=== PATIENT | female | born 1925 | race Caucasian/White ===

== ENCOUNTER 2016-11-07 10:55 | Inpatient (IN) | payer MEDICARE, BC ==
[~2016-11-07] VITALS: Ht 170.2 cm; Wt 95.8 kg
[~2016-11-07 10:55] MED LIST: ALBU2.5V5 NEB; ASPI325T8 PO; DIGO125T PO; DOXA8TAB2 PO; FERR325T72 PO; FOLI0.8T3 PO; HYDR-2868 PO; INSU100I13 SQ; INSU100I17 SQ; ISOS120T PO; LOSA50TA6 PO; MAGN400O7 PO; METO100T5 PO; NITR0.4T SL; OMEG1CAP6 PO; ONDA4TAB7 PO; PANT40TA3 PO; SIMV20TA3 PO; VENL75CA PO
--- NOTE | 2016-11-07 12:04 | RAD ---
Portable chest, 11/07/2016: History: Left-sided weakness, heart disease, stroke Comparison is made to a study from 01/13/2016. There has been a previous median sternotomy. The heart is mildly enlarged. There is calcific plaquing of the aorta. The pulmonary vascularity is normal. The left lung base has cleared. No acute infiltrates are seen. There is no evidence of pleural fluid. The bony structures are demineralized. There is an old left humeral neck fracture. IMPRESSION: 1. Mild cardiomegaly. 2. No acute cardiopulmonary abnormality is detected.
--- NOTE | 2016-11-07 12:27 | RAD ---
Indication weakness. Change in mental status. Noncontrast images of the head were obtained. Comparison is made to an exam 01/11/2016. No acute or significant calvarial finding is seen. The visualized paranasal sinuses appear unremarkable. There is no subdural or epidural hematoma. There is moderate atrophy. There is increased lucency in the deep white matter most compatible with microvascular disease. A mass or hemorrhage is not seen. No acute finding is apparent. There has not been a significant change relative to the previous exam. IMPRESSION: Chronic changes. No acute finding seen PQRS Compliance Statement: One or more of the following individualized dose reduction techniques were utilized for this examination: 1. Automated exposure control 2. Adjustment of the mA and/or kV according to patient size 3. Use of iterative reconstruction technique
[2016-11-07 12:44] LABS: HEMATOCRIT 24.1 % (36.0-47.0); HEMOGLOBIN 7.9 g/dL (12.0-15.5); RED BLOOD COUNT 2.67 x10^6/uL (3.50-5.40); RED CELL DISTRIBUTION WIDTH 17.9 % (11.5-14.5); WHITE BLOOD COUNT 5.9 x10^3/uL (4.0-11.0)
[2016-11-07 12:55] LABS: INR 1.3 (0.8-1.1); PROTHROMBIN TIME PATIENT 15.1 SEC (11.7-14.0)
[2016-11-07 13:22] LABS: CALCIUM 8.9 mg/dL (8.5-10.1); GFR 14.7; POTASSIUM 3.9 mmol/L (3.5-5.1)
--- NOTE | 2016-11-07 14:51 | PHYS DOC ---
Past Medical History Past Medical History: A-Fib, Asthma, CHF, COPD, Depression, Diabetes-Type II, GERD, High Cholesterol, Heart Disease, Hypertension, DC, Renal Disease, Renal Failure, Stroke, UTI Past Surgical History: Cholecystectomy, Coronary Bypass Surgery, Hysterectomy, Tonsillectomy Alcohol Use: None Drug Use: None Adult General Chief Complaint Chief Complaint: NEURO SYMPTOMS/DEFICITS [facility] HPI Patient is a 89 year old female with history of hypertension, diabetes type 2, myocardial infarction, high cholesterol, COPD, renal failure, who presents today with generalized weakness. The daughter is in the ED who is doing most of the talking, she states the assisted reported patient has been weak since Saturday which is 5 days ago. They state she has been having trouble feeding herself. The daughter goes father to state this morning they called her and informed her patient passed out during a transfer via [employer]. Patient is alert and oriented to self. PCP is Dr. Terry Review of Systems Review of Systems Constitutional: Denies fever or chills [] Eyes: Denies change in visual acuity, redness, or eye pain [] HENT: Denies nasal congestion or sore throat [] Respiratory: Denies cough or shortness of breath [] Cardiovascular: No additional information not addressed in HPI [] GI: Denies abdominal pain, nausea, vomiting, bloody stools or diarrhea [] : Denies dysuria or hematuria [] Musculoskeletal: Denies back pain or joint pain [] Integument: Denies rash or skin lesions [] Neurologic: Generalized weakness Endocrine: Denies polyuria or polydipsia [] Allergies Allergies Allergies Coded Allergies Type Severity Reaction Last Updated Verified Penicillins Allergy Intermediate Hives 01/12/16 Yes iodine Allergy Intermediate Hives 01/12/16 Yes Physical Exam Physical Exam Constitutional: Well developed, well nourished, no acute distress, non-toxic appearance. [] HENT: Normocephalic, atraumatic, bilateral external ears normal, oropharynx moist, no oral exudates, nose normal. [] Eyes: PERRLA, EOMI, conjunctiva normal, no discharge. [] Neck: Normal range of motion, no tenderness, supple, no stridor. [] Cardiovascular:Heart rate regular rhythm, no murmur [] Lungs & Thorax: Bilateral breath sounds clear to auscultation [] Abdomen: Bowel sounds normal, soft, no tenderness, no masses, no pulsatile masses. [] Skin: Left heel with dressing due to foot ulcer. Back: No tenderness, no CVA tenderness. [] Extremities: Left upper extremity feels weaker than the right. Full passive range of motion to bilateral upper extremities. Full passive range of motion to bilateral lower extremities. +1 bilateral pedal edema. Neurologic: Alert and oriented X 2, Psychologic: Affect normal, judgement normal, mood normal. [] Current Patient Data Vital Signs Vital Signs Date Time Temp Pulse Resp B/P (MAP) Pulse Ox O2 Delivery O2 Flow Rate FiO2 11/07/16 14:00 75 15 133/73 (93) 94 11/07/16 11:30 Room Air 11/07/16 11:02 98.1 98.1 Lab Values Laboratory Tests Test 11/07/16 11:12 11/07/16 12:30 11/07/16 13:00 11/07/16 13:18 Glucose (Fingerstick) 59 mg/dL (70-99) L 58 mg/dL (70-99) L White Blood Count 5.9 x10^3/uL (4.0-11.0) Red Blood Count 2.67 x10^6/uL (3.50-5.40) L Hemoglobin 7.9 g/dL (12.0-15.5) L Hematocrit 24.1 % (36.0-47.0) L Mean Corpuscular Volume 90 fL (79-100) Mean Corpuscular Hemoglobin 30 pg (25-35) Mean Corpuscular Hemoglobin Concent 33 g/dL (31-37) Red Cell Distribution Width 17.9 % (11.5-14.5) H Platelet Count 186 x10^3/uL (140-400) Prothrombin Time 15.1 SEC (11.7-14.0) H Prothrombin Time INR 1.3 (0.8-1.1) H PTT 29 SEC (24-38) Sodium Level 139 mmol/L (136-145) Potassium Level 3.9 mmol/L (3.5-5.1) Chloride Level 99 mmol/L (98-107) Carbon Dioxide Level 30 mmol/L (21-32) Anion Gap 10 (6-14) Blood Urea Nitrogen 91 mg/dL (7-20) H Creatinine 3.0 mg/dL (0.6-1.0) H Estimated GFR (Cockcroft-Gault) 14.7 Glucose Level 60 mg/dL (70-99) L Lactic Acid Level 1.1 mmol/L (0.4-2.0) Calcium Level 8.9 mg/dL (8.5-10.1) Test 11/07/16 13:44 Glucose (Fingerstick) 66 mg/dL (70-99) L Laboratory Tests 11/07/16 12:30 Laboratory Tests 11/07/16 13:00 EKG EKG []EKG interpreted by Dr. Benites sinus rhythm, heart rate 77, QRS interval 90, no STEMI. Radiology/Procedures Radiology/Procedures [] Course & Med Decision Making Course & Med Decision Making Pertinent Labs and Imaging studies reviewed. (See chart for details) Patient is from a assisted, she was brought to the ED today for generalized weakness for five days and passed out during transfer with a [employer]. Offnote her stroke scale is 7. We considered TPA patient's have been going on for 5 days we did feel it was warranted with symptoms onset five days ago. We unfortunately have no idea of patient's normal mental status hence hard to tell if her current symptoms are normal or not. EKG interpreted by Dr. Benites sinus rhythm, heart rate 77, QRS interval 90, no STEMI. CBC with hemoglobin of 7.9, hematocrit 24.1, BMP with creatinine of 3.0, BUN of 91. Patient has history of renal failure unknown what stage. CT of the head was negative for any acute findings. Chest x-ray was negative for any acute findings. 13:[address] Terry who accepted patient for admission. IV fluids were ordered as discussed with Dr. Terry. Dragon Disclaimer Dragashvin Disclaimer This electronic medical record was generated, in whole or in part, using a voice recognition dictation system. Departure Departure Impression: Primary Impression: Acute on chronic renal failure Additional Impressions: Weakness generalized Syncope Disposition: ADMITTED INPATIENT Admitting Physician: Adriana Terry Condition: STABLE Referrals: ADRIANA TERRY MD (PCP) Problem Qualifiers Primary Impression: Acute on chronic renal failure Acute renal failure type: unspecified Chronic kidney disease stage: unspecified stage Qualified Codes: N17.9 - Acute kidney failure, unspecified; N18.9 - Chronic kidney disease, unspecified Additional Impressions: Syncope Syncope type: unspecified Qualified Codes: R55 - Syncope and collapse HUGO FAJARDO CALLIOPE PLAYER Nov 07, 2016 14:51
--- NOTE | 2016-11-07 14:56 | ACF ---
Admit Criteria Forms Admit Criteria Forms Admit Criteria Forms RENAL FAILURE, ACUTE Clinical Indications for Admission to Inpatient Care ( Place 'X' for any and all applicable criteria): Admission is indicated for ALL (if I & II) or III of the following [A](2)(3)(4)( 5)(6)(7): [X]I. Acute renal failure as indicated by ANY ONE of the following: [X]a) A 3-fold rise in serum creatinine from baseline [ ]b) Serum creatinine greater than 4 mg/dL (354 micromoles/L) with an acute rise greater than 0.5 mg/dL (44.2 micromoles/L) [ ]c) Reduction of more than 75% in estimated glomerular filtration rate from baseline [ ]d) Estimated glomerular filtration rate less than 35 mL/min/1.73m2 (0.59mL/sec/1.73m2)in a child up to 18 years of age [ ]e) Anuria indicated by ALL of the following: [ ]i) Adequate volume status [ ]ii) Cessation of urine output indicated by ANY ONE of the following: [ ]1) Urine output less than 0.3 mL/kg/hr for 24 hours [ ]2) Anuria (urine output less than 0.1 mL/kg/ hr) for 12 hours [ ] II. Renal failure cannot be managed in an outpatient setting or observational care setting as indicating by ANY ONE of the following: [ ]a) Altered mental status that is severe or persistent [ ]b) Volume overload or Respiratory distress (eg, clinically significant pulmonary edema) that is severe or persistent [ ]c) Cardiac arrhythmias of immediate concern [ ]d) Hemodynamic instability [ ]e) Clinically significant electrolyte abnormality that requires inpatient care (eg, hyperkalemia with severe ECG findings)[B] [ ]f) Clinically significant metabolic abnormality (eg, acidosis) that is severe or persistent [ ]g) Acute treatment of renal failure (eg, renal replacement therapy) not feasible or appropriate in observational care setting [ ]h) Clinical situation too unstable or uncertain (eg, inadequate urine output, ongoing decline in renal function, etiology unclear) [ ]i) Necessary support and caregiver ability to comply with outpatient treatment cannot be arranged in observation care timeframe (eg, within 24 hours) [ ]j) Other significant finding or clinical condition judged not to be within scope of observation care [X]III.General contraindications and/or Inappropriate clinical situations for Observational Care in patients with Acute Renal Failure, when ANY ONE of the following is required: [X]a) Prediction of prolongation of LOS based on ANY ONE of the following may be considered as a contraindication for observational care 2, 3, 4, 5, 6, 7, 8 , 9, 10, 11 [X]i) Age > 65 yrs. [ ]ii) Patient arriving by ambulance [ ]iii) Patient with high acuity [ ]iv) Patient requiring vital sign monitoring [ ]v) Patient on IV medication [ ]b) Systolic blood pressures 180mmHg 3,12 [ ]c) Patient with altered mental status including delirium and other alteration of consciousness, (3) [ ]d) Patient whose discharge disposition will be to a custodial home or rehabilitation home should not be managed in Emergency Department Observation Unit. CMS rule requires 3 days hospital stay before such placement.3,13 [ ]e) Patient with failure to thrive due to broad array of etiologies 3, 16,17 [ ]f) Inability to ambulate 3,14 Extended stay beyond goal length of stay may be needed for(13) [ ]a) Continuing uremic complications [ ]b) Care for comorbidities [ ]c) acute renal failure [ ]d) Need for dialysis The original [employer] content created by [employer] has been revised. The portions of the content which have been revised are identified through the use of italic text or in bold, and [employer] [facility] has neither reviewed nor approved the modified material. All other unmodified content is copyright [employer]. Please see references footnoted in the original [employer] edition 2016 ZOIE SCOTT Nov 07, 2016 14:56
[2016-11-07] MEDS ORDERED: ONDANSETRON PF 4 MG/2 ML VIAL. IV PRN (15:15)
[2016-11-07] MEDS ORDERED: IV NORMAL SALINE 1000ML BAG 1,000 ML IV ONE ×2 (15:15)
[2016-11-07] MEDS ORDERED: DEXTROSE 50% 25 GM / 50ML DISP.SYRIN. IV PRN (15:15)
--- NOTE | 2016-11-07 15:40 | EKG ---
[facility] [address] [place] [address] Test Date: 2016-11-07 Test Time: 11:30:05 Pat Name: DELICIA GREENE Department: Room: 672 1 Gender: F Face Burler: : 1925 Requested By: HUGO FAJARDO Order Number: [id number] Reading MD: Paolo Vyas Measurements Intervals Glade Rate: 77 P: WV: QRS: -12 QRSD: 90 T: 156 QT: 428 QTc: 486 Interpretive Statements ATRIAL FIBRILLATION - CONTROLLED VENTRICULAR RATE POSSIBLE INFERIOR INFARCT Electronically Signed On 11-21-2016 6:24:26 CDT by Paolo Vyas
[2016-11-07 16:10] VITALS: BP 137/49
[2016-11-07] MEDS ORDERED: ATOR40TA59 PO (18:17)
[2016-11-07] MEDS ORDERED: INSU100V13 SQ ×2 (18:25→18:31)
[2016-11-07] MEDS ORDERED: FURO-68 PO (18:25)
[2016-11-07] MEDS ORDERED: CARV12.5 PO (18:25)
[2016-11-07] MEDS ORDERED: TAMS0.4C2 PO (18:25)
[2016-11-07] MEDS ORDERED: GABA-586 PO (18:25)
[2016-11-07] MEDS ORDERED: VENL37.57 PO (18:25)
[2016-11-07] MEDS ORDERED: DILT120C80 PO (18:25)
[2016-11-07] MEDS ORDERED: INSU100C4 SQ ×3 (18:25→18:31)
[2016-11-07] MEDS ORDERED: TRAM50TA PO (18:25)
[2016-11-07] MEDS ORDERED: POLY17PO29 PO (18:25)
[2016-11-07] MEDS ORDERED: ACET500T68 PO (18:25)
[2016-11-07] MEDS ORDERED: LEVE500T56 PO (18:25)
[2016-11-07] MEDS ORDERED: HYOS0.125 SL (18:25)
[2016-11-07 19:58] VITALS: BP 121/56
[2016-11-07] MEDS: ATORVASTATIN CALCIUM 40 MG TABLET. PO SCH (21:46)
[2016-11-07] MEDS: levETIRAcetam 500 MG TABLET PO SCH (21:46)
[2016-11-07 22:48] LABS: BILIRUBIN,URINE NEGATIVE (NEG); GLUCOSE,URINE NEGATIVE (NEG); NITRITE,URINE NEGATIVE (NEG); PH,URINE 6.5; PROTEIN,URINE 30 mg/dL (NEG-TRACE); UROBILINOGEN,URINE 0.2 mg/dL (0.2 mg/dL)
[2016-11-07 23:03] LABS: BACTERIA,URINE MANY /HPF (0-FEW); RBC,URINE OCC /HPF (0-2); SQUAMOUS EPITHELIAL CELL,UR MOD /LPF; WBC,URINE 20-40 /HPF (0-4)
[2016-11-07 23:37] VITALS: BP 137/69
[2016-11-08 03:22] VITALS: BP 114/50
[2016-11-08 04:00] LABS: BASO % 1 % (0-3); EOS % 4 % (0-3); HEMATOCRIT 21.1 % (36.0-47.0); HEMOGLOBIN 7.2 g/dL (12.0-15.5); LYMPH # 0.7 x10^3/uL (1.0-4.8); LYMPH % 14 % (24-48); MEAN CORPUSCULAR HEMOGLOBIN 30 pg (25-35); MEAN CORPUSCULAR HGB CONC 34 g/dL (31-37); MEAN CORPUSCULAR VOLUME 88 fL (79-100); MONO % 8 % (0-9); NEUT % 73 % (31-73); PLATELET COUNT 164 x10^3/uL (140-400); RED BLOOD COUNT 2.39 x10^6/uL (3.50-5.40); RED CELL DISTRIBUTION WIDTH 17.7 % (11.5-14.5); WHITE BLOOD COUNT 4.7 x10^3/uL (4.0-11.0)
[2016-11-08 04:14] LABS: CALCIUM 8.5 mg/dL (8.5-10.1); CREATININE 2.7 mg/dL (0.6-1.0); GFR 16.6; POTASSIUM 3.6 mmol/L (3.5-5.1)
[2016-11-08 07:20] VITALS: BP 122/52
[2016-11-08] MEDS: levETIRAcetam 500 MG TABLET PO SCH ×2 (09:04→20:43)
[2016-11-08 10:51] VITALS: BP 136/55
[2016-11-08] MEDS ORDERED: NITROGLYCERIN SUBLINGUAL 0.4 MG BOTTLE OF 25. SL PRN (12:00)
[2016-11-08] MEDS ORDERED: HYOSCYAMINE 0.125 MG TAB.RAPDIS PO PRN (12:00)
[2016-11-08] MEDS ORDERED: traMADol 50 MG TABLET PO PRN (12:00)
[2016-11-08] MEDS ORDERED: POLYETHYLENE GLYCOL 3350 17 GM PACKET. PO PRN (12:00)
[2016-11-08] MEDS ORDERED: MAGNESIUM HYDROXIDE 2,400 MG/30 ML ORAL.SUSP. PO PRN (12:00)
[2016-11-08] MEDS ORDERED: ALBUTEROL SULFATE 2.5 MG/3 ML NEBU. NEB PRN (12:00)
[2016-11-08] MEDS ORDERED: ACETAMINOPHEN 325 MG TABLET. PO PRN (12:15)
[2016-11-08] MEDS: PANTOPRAZOLE 40 MG TABLET.DR. PO SCH (13:03)
[2016-11-08] MEDS: IV NORMAL SALINE 1000ML BAG 1,000 ML IV SCH (13:03)
[2016-11-08] MEDS: VENLAFAXINE XR 37.5 MG CAP.ER.24H. PO SCH (13:04)
[2016-11-08] MEDS: TAMSULOSIN 0.4 MG CAP.ER.24H. PO SCH (13:04)
[2016-11-08] MEDS: GABAPENTIN 300 MG CAPSULE. PO SCH (13:04)
--- NOTE | 2016-11-08 13:27 | HP ---
ADMIT DATE: 11/07/2016 HISTORY OF PRESENT ILLNESS: The patient is an 89-year-old female patient, a resident at [facility], who apparently was brought to the Emergency Room of [facility] with generalized weakness, having trouble feeding herself and she has also what seemed to be a syncopal episode when they tried to transfer her by [employer]. The patient herself is demented and does not give any useful information; however, she was evaluated in the Emergency Room, was found to have [id number] renal failure. Her baseline creatinine was probably about 2.4. She was given IV fluids and was admitted for further evaluation and treatment. The patient herself complains only of pain in her left heel and shortness of breath on exertion, but denied any orthopnea, paroxysmal nocturnal dyspnea, denied any chest pain. PAST MEDICAL HISTORY: Significant for coronary artery disease, congestive heart failure, hypertension, hyperlipidemia, history of cerebrovascular accident, type 2 diabetes as well as recurrent urinary tract infection. PAST SURGICAL HISTORY: Significant for cholecystectomy, coronary artery bypass graft surgery, and hysterectomy. FAMILY HISTORY: Unremarkable. SOCIAL HISTORY: She is a resident at [facility]. She does not smoke, drink alcohol, or use recreational drugs. REVIEW OF SYSTEMS: The patient denied any blurring of vision, cataract, glaucoma, or macular degeneration. Denied any earache, tinnitus, or sensorineural deafness. Denied any nosebleeds, stuffy nose, or postnasal drip. Denied any sore throat, sore tongue, toothache, hoarseness of voice or difficulty swallowing. Denied any nausea, vomiting, diarrhea, or constipation. Denied any hematemesis, melena, or hematochezia. Denied any dysuria, frequency, or hematuria. Denied any chest pain. Did complain of shortness of breath on exertion, but denied any orthopnea or paroxysmal nocturnal dyspnea. Denied any cough, phlegm, or hemoptysis. Denied any dizziness, lightheadedness, or vertigo; however, she does seem to have syncopal episode when they were trying to transfer her by [employer]. MEDICATIONS: She is currently on following medications: She is on Tylenol 650 mg every 6 hours, albuterol sulfate 2.5 mg via nebulizer q. 4 hours as needed, atorvastatin calcium 40 mg at bedtime, carvedilol 12.5 mg twice a day, diltiazem 120 mg once a day, Nephro-Aditya 1 tablet once a day, furosemide 40 mg twice a day, gabapentin 300 mg 3 times a day, hyoscyamine sulfate 0.125 mg q. 4 hours as needed. She is on NovoLog insulin 10 units with breakfast, 12 units with lunch and dinner. She is on Levemir units at bedtime. She is on Keppra 500 mg twice a day, magnesium hydroxide for milk of magnesia 30 mL p.o. daily p.r.n. for constipation, nitroglycerin 0.4 mg sublingually q. 5 minutes x 3, Protonix 40 mg daily, polyethylene glycol 17 grams daily, tamsulosin 0.4 mg daily, tramadol 50 mg once a day, venlafaxine 37.5 mg once a day. PHYSICAL EXAMINATION: GENERAL: On arrival to the Emergency Room, the patient was awake, alert, pale. No jaundice, cyanosis, or thyromegaly. No jugular distension. No lower limb edema. VITAL SIGNS: Her heart rate was 81, blood pressure was 111/58, temperature was 98.1, respiratory rate was 18 and oxygen saturation was 96%. HEAD, EYES, EARS, NOSE, THROAT: Showed normocephalic, atraumatic. NECK: Supple. HEART: Showed normal first and second heart sounds with no gallop, rub, or murmur. CHEST: Clear to auscultation. No crepitation or rhonchi. ABDOMEN: Distended, soft, nontender. NEUROLOGIC: She is awake, alert, oriented to self. All her cranial nerves were intact. She moves upper extremities somewhat greater extent than lower extremities. She is mostly bed bound and chair bound. She has a [employer] lift. LABORATORY DATA: On admission showed a white cell count of 5900, hemoglobin 7.9, hematocrit 24, MCV 90, and platelet count 286,000. Her chemistry showed a serum sodium 139, potassium 3.9, chloride 99, bicarbonate 30, anion gap of 10, BUN 91, creatinine 3. Estimated GFR was 14 mL per minute. Her glucose was 60 and calcium was 8.9. IMPRESSION: In summary, this is an 89-year-old female patient, who was admitted with generalized weakness, what seems to be [id number] kidney injury. She was also hypoglycemic, blood sugars while in the 59 and 68 levels. PLAN: My plan is to hold her insulin, continue only with Keppra for now and hold all antihypertensive medication. She was given a liter of fluid while in the Emergency Room and was continued on 125 mL per hour for 1 more liter. We will repeat all her lab works and decide on further management accordingly. OLI TERRY MD DR: HOWARD/yolanda JOB#: [id number] / [id number]
[2016-11-08 14:57] VITALS: BP 134/84
--- NOTE | 2016-11-08 16:48 | RAD ---
Indication ulcer left heel. Assess for potential osteomyelitis AP oblique and lateral views of the left foot were obtained. No fracture or acute finding is seen. There is marked bony demineralization. Plain film findings of osteomyelitis are not seen. Diffuse soft tissue swelling is noted. Degenerative changes in the midfoot are noted IMPRESSION: Bony demineralization. No acute finding. No definite plain film findings suggesting osteomyelitis
[2016-11-08] MEDS: CARVEDILOL 12.5 MG TABLET. PO SCH (16:53)
--- NOTE | 2016-11-08 17:21 | PDOC2 ---
NEUROLOGY CONSULT Date of Admission Date of Admission DATE: 11/08/16 TIME: 17:11 Reason for Consult Reason for Consult: IMPRESSION: MS changes. Generalized weakness. Metabolic encephalopathy. AFib CHF CAD, s/p CABG ME, Hx HTN HLD Obesity RECOMMENDATIONS/PLAN: ASA 81 mg daily. Continue Lipitor HS. Brain MRI w/o contrast. Treat medical diseases. OT/PT. HISTORY OF THE PRESENT ILLNESS: 89-y-old female patient with complicated medical history was noted mental status changes and weakness as generalized type per Hx. Her HCT was unremarkable. PAST MEDICAL HISTORY: Please see above. PAST SURGERY HISTORY: CABG Tonsillectomy Cholecystectomy Hysterectomy ALLERGY: Reviewed. MEDICATIONS: Refer to [facility]ILY HISTORY: Non contributory. SOCIAL HISTORY: Lives in skilled nursing. Denies current smoking, drinking, and illicit drug use. REVIEW OF SYSTEMS: Constitutional: No malnutrition, weight loss, cachexia. Head: No recent traumatic brain or head injury. Skin: No edema, or rash. Ear: No infection. Eyes: No vision loss or color blindness. Nose: No bleeding or purulent discharges. Hearing: Hearing decrease. Neck: No injury. Breast: No history of cancer, masses,or discharges. Cardiac: CAD, s/p CABG, AFib, HTN, HLD. Pulmonary: COPD. GI: No GI ulcer, GI bleeding. Urinary/genital: UTI. Endocrinologic: Diabetes Mellitus. Skeletomuscular: No muscular atrophy, deformity. Neurological: see HP. Psychiatric: Denies drug use/abuse. Otherwise, not [id number] review of systems. PHYSICAL EXAMINATION: General appearance is in ampthic. HEENT: Normocephalic and nontraumatic. Eyes, nose, ears, and throat are unremarkable. Neck is supple. No lymphadenopathy. No crepitus. Cardiovascular: S1, S2, irregular rate and rhythm. Pulmonary: Clear to auscultation bilaterally. Abdomen: Bowel sounds are positive. Abdomen is soft, nontender, and nondistended. Extremities: No rash, lesions, or edema. No restriction of range of motion NEUROLOGICAL EXAMINATION: Awake. Not oriented to time, place but may know person. PERRL. EOMI. CN: no focal findings. Muscle tone: within normal. Muscle strength: 4 DTR: 0-1 at knee Plantar reflex: Neutral response bilaterally Gait: not examined in bed. Sensory exam: no abnormal findings. No acute cerebellar signs elicited. F-T-N test not performed due to not follow commands. Current Medications Current Medications Current Medications Ondansetron HCl (Zofran) 4 mg PRN Q8HRS PRN IV NAUSEA/VOMITING; Start 11/07/16 at 15:15; Stop 11/08/16 at 15:14; Status DC Dextrose (Dextrose 50%-Water Syringe) 12.5 gm PRN Q15MIN PRN IV SEE COMMENTS; Start 11/07/16 at 15:15 Sodium Chloride 1,000 ml @ 125 mls/hr 1X ONCE IV ; Start 11/07/16 at 15:15; Stop 11/07/16 at 23:14; Status DC Sodium Chloride 1,000 ml @ 100 mls/hr 1X ONCE IV Last administered on 16:07; Start 11/07/16 at 15:15; Stop 11/08/16 at 01:14; Status DC Levetiracetam (Keppra) 500 mg BID PO Last administered on 11/08/16 09:04; Start 11/07/16 at 21:00 Atorvastatin Calcium (Lipitor) 40 mg QHS PO Last administered on 11/07/16 21: 46; Start 11/07/16 at 21:00 Acetaminophen (Tylenol) 650 mg PRN Q6HRS PRN PO MILD PAIN / TEMP; Start at 12:15 Albuterol Sulfate (Ventolin Neb Soln) 2.5 mg Q4H PRN NEB SHORTNESS OF BREATH; Start 11/08/16 at 12:00 Atorvastatin Calcium (Lipitor) 40 mg QHS PO ; Start 11/08/16 at 21:00; Status UNV Carvedilol (Coreg) 12.5 mg BIDWMEALS PO Last administered on 11/08/16 16:53; Start 11/08/16 at 17:00 Diltiazem HCl (Cardizem 24hr Cd) 120 mg DAILY PO ; Start 11/08/16 at 13:00; Stop 11/08/16 at 15:48; Status DC Vitamin B Complex/ Vitamin C (Taylor-Aditya) 1 tab DAILY PO ; Start 11/09/16 at 09: 00 Hyoscyamine (Anaspaz) 0.125 mg PRN Q4HRS PRN PO ABD PAIN; Start 11/08/16 at 12: 00 Magnesium Hydroxide (Milk Of Magnesia) 2,400 mg DAILY PRN PO CONSTIPATION; Start 11/08/16 at 12:00 Nitroglycerin (Nitrostat) 0.4 mg PRN Q5MIN PRN SL CHEST PAIN; Start 11/08/16 at 12:00 Pantoprazole Sodium (Protonix) 40 mg DAILYAC PO Last administered on 11/08/16 13:03; Start 11/08/16 at 13:00 Polyethylene Glycol (miraLAX PACKET) 17 gm DAILY PRN PO CONSTIPATION; Start at 12:00 Tamsulosin HCl (Flomax) 0.4 mg DAILY PO Last administered on 11/08/16 13:04; Start 11/08/16 at 13:00 Tramadol HCl (Ultram) 50 mg PRN TID PRN PO PAIN; Start 11/08/16 at 12:00 Venlafaxine HCl (Effexor Xr) 37.5 mg DAILY PO Last administered on 11/08/16 13 :04; Start 11/08/16 at 13:00 Gabapentin (Neurontin) 300 mg DAILY PO Last administered on 11/08/16 13:04; Start 11/08/16 at 13:00 Sodium Chloride 1,000 ml @ 75 mls/hr [id number] IV Last administered on 13:03; Start 11/08/16 at 12:30 Active Scripts Active Reported Novolog (Insulin Aspart) 100 Unit/1 Ml Cartridge 12 Unit SQ BIDACLD Novolog (Insulin Aspart) 100 Unit/1 Ml Cartridge 10 Unit SQ DAILYWBKFT Levemir (Insulin Detemir) 100 Unit/1 Ml Vial 15 Unit SQ HS Tramadol Hcl 50 Mg Tablet 1 Tab PO PRN TID Acetaminophen 500 Mg Tablet 650 Mg PO PRN Q6HRS Keppra (Levetiracetam) 500 Mg Tablet 1 Tab PO BID Coreg (Carvedilol) 12.5 Mg Tablet 1 Tab PO BID Venlafaxine Hcl Er (Venlafaxine Hcl) 37.5 Mg Cap.er.24h 1 Cap PO DAILY Hyoscyamine Sulfate 0.125 Mg Tab.rapdis 0.125 Mg SL PRN Q4HRS Miralax (Polyethylene Glycol 3350) 17 Gm Powd.pack 1 Packet PO DAILY PRN Lasix (Furosemide) 40 Mg Tablet 40 Mg PO BID Tamsulosin Hcl 0.4 Mg Cap.er.24h 1 Cap PO DAILY Gabapentin 300 Mg Capsule 300 Mg PO DAILY Diltiazem 24HR Cd (Diltiazem Hcl) 120 Mg Cap.er.24h 1 Cap PO DAILY Atorvastatin Calcium 40 Mg Tablet 1 Tab PO DAILY Albuterol Sulfate Neb Soln (Albuterol Sulfate) 2.5 Mg/3 Ml Vial.neb 2.5 Mg NEB Milk Of Magnesia (Magnesium Hydroxide) 400 Mg/5 Ml Oral.susp 400 Mg PO Protonix (Pantoprazole Sodium) 40 Mg Tablet.dr 40 Mg PO DAILY Nitrostat (Nitroglycerin) 0.4 Mg Tab.subl 0.4 Mg SL PRN Q5MIN PRN Nephro-Aditya Tablet (Folic Acid/Vitamin B Comp W-C) 0.8 Mg Tablet 0.8 Mg PO Allergies Allergies: Coded Allergies: Penicillins (Verified Allergy, Intermediate, Hives, 01/12/16) Tolerates rocephin iodine (Verified Allergy, Intermediate, Hives, 01/12/16) Vitals VITALS Vital Signs Date Time Temp Pulse Resp B/P (MAP) Pulse Ox O2 Delivery O2 Flow Rate FiO2 11/08/16 16:53 78 134/84 11/08/16 14:57 98.3 18 98 Nasal Cannula 2.0 98.3 Labs Labs Laboratory Tests Test 11/07/16 11:12 11/07/16 12:30 11/07/16 13:00 11/07/16 13:18 Glucose (Fingerstick) 59 mg/dL (70-99) 58 mg/dL (70-99) White Blood Count 5.9 x10^3/uL (4.0-11.0) Red Blood Count 2.67 x10^6/uL (3.50-5.40) Hemoglobin 7.9 g/dL (12.0-15.5) Hematocrit 24.1 % (36.0-47.0) Mean Corpuscular Volume 90 fL (79-100) Mean Corpuscular Hemoglobin 30 pg (25-35) Mean Corpuscular Hemoglobin Concent 33 g/dL (31-37) Red Cell Distribution Width 17.9 % (11.5-14.5) Platelet Count 186 x10^3/uL (140-400) Prothrombin Time 15.1 SEC (11.7-14.0) Prothromb Time International Ratio 1.3 (0.8-1.1) Activated Partial Thromboplast Time 29 SEC (24-38) Sodium Level 139 mmol/L (136-145) Potassium Level 3.9 mmol/L (3.5-5.1) Chloride Level 99 mmol/L (98-107) Carbon Dioxide Level 30 mmol/L (21-32) Anion Gap 10 (6-14) Blood Urea Nitrogen 91 mg/dL (7-20) Creatinine 3.0 mg/dL (0.6-1.0) Estimated GFR (Cockcroft-Gault) 14.7 Glucose Level 60 mg/dL (70-99) Lactic Acid Level 1.1 mmol/L (0.4-2.0) Calcium Level 8.9 mg/dL (8.5-10.1) Test 11/07/16 13:44 11/07/16 16:20 11/07/16 16:53 11/07/16 19:06 Glucose (Fingerstick) 66 mg/dL (70-99) 60 mg/dL (70-99) 94 mg/dL (70-99) Nasal Screen MRSA (PCR) Negative (Negative) Test 11/07/16 21:05 11/07/16 21:55 11/08/16 03:10 11/08/16 07:31 Glucose (Fingerstick) 116 mg/dL (70-99) 123 mg/dL (70-99) Urine Collection Type Unknown Urine Color Yellow Urine Clarity Turbid Urine pH 6.5 Urine Specific Mcneil 1.010 Urine Protein 30 mg/dL (NEG-TRACE) Urine Glucose (UA) Negative mg/dL (NEG) Urine Ketones (Stick) Negative mg/dL (NEG) Urine Blood Trace (NEG) Urine Nitrite Negative (NEG) Urine Bilirubin Negative (NEG) Urine Urobilinogen Dipstick 0.2 mg/dL (0.2 mg/dL) Urine Leukocyte Esterase Large (NEG) Urine RBC Occ /HPF (0-2) Urine WBC 20-40 /HPF (0-4) Urine Squamous Epithelial Cells Mod /LPF Urine Bacteria Many /HPF (0-FEW) Urine Hyaline Casts Moderate /HPF White Blood Count 4.7 x10^3/uL (4.0-11.0) Red Blood Count 2.39 x10^6/uL (3.50-5.40) Hemoglobin 7.2 g/dL (12.0-15.5) Hematocrit 21.1 % (36.0-47.0) Mean Corpuscular Volume 88 fL (79-100) Mean Corpuscular Hemoglobin 30 pg (25-35) Mean Corpuscular Hemoglobin Concent 34 g/dL (31-37) Red Cell Distribution Width 17.7 % (11.5-14.5) Platelet Count 164 x10^3/uL (140-400) Neutrophils (%) (Auto) 73 % (31-73) Lymphocytes (%) (Auto) 14 % (24-48) Monocytes (%) (Auto) 8 % (0-9) Eosinophils (%) (Auto) 4 % (0-3) Basophils (%) (Auto) 1 % (0-3) Neutrophils # (Auto) 3.5 x10^3uL (1.8-7.7) Lymphocytes # (Auto) 0.7 x10^3/uL (1.0-4.8) Monocytes # (Auto) 0.4 x10^3/uL (0.0-1.1) Eosinophils # (Auto) 0.2 x10^3/uL (0.0-0.7) Basophils # (Auto) 0.0 x10^3/uL (0.0-0.2) Sodium Level 139 mmol/L (136-145) Potassium Level 3.6 mmol/L (3.5-5.1) Chloride Level 102 mmol/L (98-107) Carbon Dioxide Level 29 mmol/L (21-32) Anion Gap 8 (6-14) Blood Urea Nitrogen 87 mg/dL (7-20) Creatinine 2.7 mg/dL (0.6-1.0) Estimated GFR (Cockcroft-Gault) 16.6 Glucose Level 116 mg/dL (70-99) Calcium Level 8.5 mg/dL (8.5-10.1) Creatine Kinase 173 U/L (26-192) Vitamin B12 Level 903 pg/mL (247-911) Thyroid Stimulating Hormone (TSH) 2.668 uIU/mL (0.358-3.74) Test 11/08/16 11:34 11/08/16 16:28 Glucose (Fingerstick) 161 mg/dL (70-99) 216 mg/dL (70-99) Laboratory Tests Test 11/07/16 19:06 11/07/16 21:05 11/07/16 21:55 11/08/16 03:10 Glucose (Fingerstick) 94 mg/dL (70-99) 116 mg/dL (70-99) Urine Collection Type Unknown Urine Color Yellow Urine Clarity Turbid Urine pH 6.5 Urine Specific Mcneil 1.010 Urine Protein 30 mg/dL (NEG-TRACE) Urine Glucose (UA) Negative mg/dL (NEG) Urine Ketones (Stick) Negative mg/dL (NEG) Urine Blood Trace (NEG) Urine Nitrite Negative (NEG) Urine Bilirubin Negative (NEG) Urine Urobilinogen Dipstick 0.2 mg/dL (0.2 mg/dL) Urine Leukocyte Esterase Large (NEG) Urine RBC Occ /HPF (0-2) Urine WBC 20-40 /HPF (0-4) Urine Squamous Epithelial Cells Mod /LPF Urine Bacteria Many /HPF (0-FEW) Urine Hyaline Casts Moderate /HPF White Blood Count 4.7 x10^3/uL (4.0-11.0) Red Blood Count 2.39 x10^6/uL (3.50-5.40) Hemoglobin 7.2 g/dL (12.0-15.5) Hematocrit 21.1 % (36.0-47.0) Mean Corpuscular Volume 88 fL (79-100) Mean Corpuscular Hemoglobin 30 pg (25-35) Mean Corpuscular Hemoglobin Concent 34 g/dL (31-37) Red Cell Distribution Width 17.7 % (11.5-14.5) Platelet Count 164 x10^3/uL (140-400) Neutrophils (%) (Auto) 73 % (31-73) Lymphocytes (%) (Auto) 14 % (24-48) Monocytes (%) (Auto) 8 % (0-9) Eosinophils (%) (Auto) 4 % (0-3) Basophils (%) (Auto) 1 % (0-3) Neutrophils # (Auto) 3.5 x10^3uL (1.8-7.7) Lymphocytes # (Auto) 0.7 x10^3/uL (1.0-4.8) Monocytes # (Auto) 0.4 x10^3/uL (0.0-1.1) Eosinophils # (Auto) 0.2 x10^3/uL (0.0-0.7) Basophils # (Auto) 0.0 x10^3/uL (0.0-0.2) Sodium Level 139 mmol/L (136-145) Potassium Level 3.6 mmol/L (3.5-5.1) Chloride Level 102 mmol/L (98-107) Carbon Dioxide Level 29 mmol/L (21-32) Anion Gap 8 (6-14) Blood Urea Nitrogen 87 mg/dL (7-20) Creatinine 2.7 mg/dL (0.6-1.0) Estimated GFR (Cockcroft-Gault) 16.6 Glucose Level 116 mg/dL (70-99) Calcium Level 8.5 mg/dL (8.5-10.1) Creatine Kinase 173 U/L (26-192) Vitamin B12 Level 903 pg/mL (247-911) Thyroid Stimulating Hormone (TSH) 2.668 uIU/mL (0.358-3.74) Test 11/08/16 07:31 11/08/16 11:34 11/08/16 16:28 Glucose (Fingerstick) 123 mg/dL (70-99) 161 mg/dL (70-99) 216 mg/dL (70-99) MARIO JUSTICE MD Nov 08, 2016 17:21
[2016-11-08 19:15] VITALS: BP 115/46
[2016-11-08] MEDS: ASPIRIN CHEWABLE 81 MG TABLET. PO SCH (20:43)
[2016-11-08] MEDS: ATORVASTATIN CALCIUM 40 MG TABLET. PO SCH (20:43)
[2016-11-08] MEDS ORDERED: ATORVASTATIN CALCIUM 40 MG TABLET. PO SCH (21:00)
[2016-11-08 23:20] VITALS: BP 120/56
[2016-11-09] VITALS (7 sets, daily range): BP systolic 122–151; BP diastolic 59–72
[2016-11-09] MEDS: IV NORMAL SALINE 1000ML BAG 1,000 ML IV SCH (01:59)
--- NOTE | 2016-11-09 04:59 | PN ---
DATE: 11/08/2016 SUBJECTIVE: The patient is resting slightly propped up in bed, no apparent distress, awake, alert. On questioning her, she is complaining of pain in her left heel. Denied any other complaints. PHYSICAL EXAMINATION: GENERAL: When I examined her, she looked pale. No jaundice, cyanosis, or thyromegaly. No jugular venous distention. No limb edema. VITAL SIGNS: Her heart rate was 86, blood pressure was , temperature was 98.4, respiratory rate was 18 and oxygen saturation was 99% on 2 liters of oxygen. HEAD, EYES, EARS, NOSE AND THROAT: Showed normocephalic, atraumatic. NECK: Supple. HEART: Showed normal first and second heart sounds with no gallop, rub or murmur. CHEST: Clear to auscultation. No crepitation or rhonchi. ABDOMEN: Distended, soft, nontender. No guarding or rigidity. No organomegaly. Hernial orifices intact. Bowel sounds normal. NEUROLOGIC: She was awake, alert, oriented to self. All her cranial nerves were intact. She moves upper extremities without difficulty. She is mostly bed bound, chair bound. She has a Curtis lift. Her intake over the last 24 hours was 1020, output was 1350. LABORATORY DATA: Her lab work this morning showed that her serum sodium was 139, potassium 3.6, chloride 102, bicarbonate 29, anion gap of 8, BUN 87, creatinine 2.7, estimated GFR was 17 mL per minute. Her glucose 116 and calcium was 8.5. White cell count was 4700, hemoglobin 7.2, hematocrit 21, MCV 88 and platelet count with normal manual differential. ASSESSMENT: Generalized weakness, slowly improving; acute on chronic kidney injury, improving. PLAN: My plan is to consult the wound care team. Repeat her labs tomorrow morning. We will decide on further management accordingly. OLI TERRY MD DR: HOWRAD/yolanda JOB#: [id number] / [id number]
[2016-11-09 06:30] LABS: BASO % 1 % (0-3); EOS % 3 % (0-3); HEMOGLOBIN 7.4 g/dL (12.0-15.5); LYMPH # 0.7 x10^3/uL (1.0-4.8); LYMPH % 15 % (24-48); MEAN CORPUSCULAR HEMOGLOBIN 29 pg (25-35); MEAN CORPUSCULAR HGB CONC 32 g/dL (31-37); MEAN CORPUSCULAR VOLUME 91 fL (79-100); MONO % 9 % (0-9); NEUT % 72 % (31-73); PLATELET COUNT 155 x10^3/uL (140-400); RED BLOOD COUNT 2.53 x10^6/uL (3.50-5.40); WHITE BLOOD COUNT 4.9 x10^3/uL (4.0-11.0)
[2016-11-09 06:53] LABS: CALCIUM 8.2 mg/dL (8.5-10.1); CHOLESTEROL/HDL RATIO 2.7; CREATININE 2.4 mg/dL (0.6-1.0); MAGNESIUM 2.7 mg/dL (1.8-2.4); POTASSIUM 3.9 mmol/L (3.5-5.1); TOTAL BILIRUBIN 0.6 mg/dL (0.2-1.0); TOTAL PROTEIN 6.1 g/dL (6.4-8.2)
[2016-11-09] MEDS: FOLIC/VIT B COMP W-C (RENAL) TABLET. PO SCH (08:52)
[2016-11-09] MEDS: ASPIRIN CHEWABLE 81 MG TABLET. PO SCH (08:53)
[2016-11-09] MEDS: TAMSULOSIN 0.4 MG CAP.ER.24H. PO SCH (08:53)
[2016-11-09] MEDS: CARVEDILOL 12.5 MG TABLET. PO SCH ×2 (08:53→18:02)
[2016-11-09] MEDS: VENLAFAXINE XR 37.5 MG CAP.ER.24H. PO SCH (08:53)
[2016-11-09] MEDS: PANTOPRAZOLE 40 MG TABLET.DR. PO SCH (08:53)
[2016-11-09] MEDS: GABAPENTIN 300 MG CAPSULE. PO SCH (08:54)
[2016-11-09] MEDS: levETIRAcetam 500 MG TABLET PO SCH ×2 (08:54→22:22)
[2016-11-09] MEDS ORDERED: DEXTROSE 50% 25 GM / 50ML DISP.SYRIN. IV PRN ×2 (13:00→18:00)
--- NOTE | 2016-11-09 14:40 | PDOC ---
PROGRESS NOTES Assessment Assessment MS changes. Generalized weakness. Metabolic encephalopathy. Acute UTI AFib CHF CAD, s/p CABG GA, Hx HTN HLD Obesity RECOMMENDATIONS/PLAN: Treat UTI. ASA 81 mg daily. Continue Lipitor HS. Brain MRI w/o contrast ordered on 11/08. Treat medical diseases. OT/PT. EEG on 11/09: reports pending. HISTORY OF THE PRESENT ILLNESS: 89-y-old female patient with complicated medical history was noted mental status changes and weakness as generalized type per Hx. Her HCT was unremarkable. PAST MEDICAL HISTORY: Please see above. PAST SURGERY HISTORY: CABG Tonsillectomy Cholecystectomy Hysterectomy ALLERGY: Reviewed. MEDICATIONS: Refer to [facility] FAMILY HISTORY: Non contributory. SOCIAL HISTORY: Lives in alf. Denies current smoking, drinking, and illicit drug use. REVIEW OF SYSTEMS: Constitutional: No malnutrition, weight loss, cachexia. Head: No recent traumatic brain or head injury. Skin: No edema, or rash. Ear: No infection. Eyes: No vision loss or color blindness. Nose: No bleeding or purulent discharges. Hearing: Hearing decrease. Neck: No injury. Breast: No history of cancer, masses,or discharges. Cardiac: CAD, s/p CABG, AFib, HTN, HLD. Pulmonary: COPD. GI: No GI ulcer, GI bleeding. Urinary/genital: UTI. Endocrinologic: Diabetes Mellitus. Skeletomuscular: No muscular atrophy, deformity. Neurological: see HP. Psychiatric: Denies drug use/abuse. Otherwise, not [id number] review of systems. PHYSICAL EXAMINATION: General appearance is in ampthic. HEENT: Normocephalic and nontraumatic. Eyes, nose, ears, and throat are unremarkable. Neck is supple. No lymphadenopathy. No crepitus. Cardiovascular: S1, S2, irregular rate and rhythm. Pulmonary: Clear to auscultation bilaterally. Abdomen: Bowel sounds are positive. Abdomen is soft, nontender, and nondistended. Extremities: No rash, lesions, or edema. No restriction of range of motion NEUROLOGICAL EXAMINATION: Awake. Not oriented to time, place but may know person. PERRL. EOMI. CN: no focal findings. Muscle tone: within normal. Muscle strength: 4+ UE, 2+ LE DTR: 0-1 at knee Plantar reflex: Neutral response bilaterally Gait: not examined in bed. Sensory exam: no abnormal findings. No acute cerebellar signs elicited. F-T-N test not performed due to not follow commands. Objective Objective Vital Signs Date Time Temp Pulse Resp B/P (MAP) Pulse Ox O2 Delivery O2 Flow Rate FiO2 11/09/16 11:06 97.4 93 20 141/70 (93) 98 Nasal Cannula 2.0 97.4 Intake and Output 11/09/16 07:00 Intake Total 300 ml Output Total 650 ml Balance -350 ml Intake Oral 300 ml Output Urine Total 650 ml # Bowel Movements 1 Vitals Signs Vitals VS - Last 72 Hours, by Label Date Time Temp Pulse Resp B/P (MAP) Pulse Ox O2 Delivery O2 Flow Rate FiO2 11/09/16 11:06 97.4 93 20 141/70 (93) 98 Nasal Cannula 2.0 97.4 11/09/16 08:53 75 122/59 11/09/16 08:00 Nasal Cannula 2.0 11/09/16 07:22 97.5 75 20 122/59 (80) 99 Nasal Cannula 2.0 97.5 11/09/16 03:20 98.5 76 20 139/62 (87) 99 Nasal Cannula 2.0 98.5 11/08/16 23:20 98.6 91 20 120/56 (77) 97 Nasal Cannula 2.0 98.6 11/08/16 20:00 Nasal Cannula 2.0 11/08/16 19:15 99.3 90 115/46 (69) 93 Nasal Cannula 2.0 99.3 11/08/16 16:53 78 134/84 11/08/16 14:57 98.3 78 18 134/84 (101) 98 Nasal Cannula 2.0 98.3 11/08/16 13:00 86 136/55 11/08/16 10:51 98.4 86 18 136/55 (82) 99 Nasal Cannula 2.0 98.4 11/08/16 08:00 Nasal Cannula 2.0 11/08/16 07:20 98.2 80 18 122/52 (75) 98 Nasal Cannula 2.0 98.2 Laboratory Laboratory Laboratory Tests Test 11/08/16 16:28 11/08/16 21:52 11/09/16 05:55 11/09/16 07:27 Glucose (Fingerstick) 216 mg/dL (70-99) 197 mg/dL (70-99) 153 mg/dL (70-99) White Blood Count 4.9 x10^3/uL (4.0-11.0) Red Blood Count 2.53 x10^6/uL (3.50-5.40) Hemoglobin 7.4 g/dL (12.0-15.5) Hematocrit 23.0 % (36.0-47.0) Mean Corpuscular Volume 91 fL (79-100) Mean Corpuscular Hemoglobin 29 pg (25-35) Mean Corpuscular Hemoglobin Concent 32 g/dL (31-37) Red Cell Distribution Width 18.0 % (11.5-14.5) Platelet Count 155 x10^3/uL (140-400) Neutrophils (%) (Auto) 72 % (31-73) Lymphocytes (%) (Auto) 15 % (24-48) Monocytes (%) (Auto) 9 % (0-9) Eosinophils (%) (Auto) 3 % (0-3) Basophils (%) (Auto) 1 % (0-3) Neutrophils # (Auto) 3.5 x10^3uL (1.8-7.7) Lymphocytes # (Auto) 0.7 x10^3/uL (1.0-4.8) Monocytes # (Auto) 0.4 x10^3/uL (0.0-1.1) Eosinophils # (Auto) 0.2 x10^3/uL (0.0-0.7) Basophils # (Auto) 0.0 x10^3/uL (0.0-0.2) Sodium Level 143 mmol/L (136-145) Potassium Level 3.9 mmol/L (3.5-5.1) Chloride Level 104 mmol/L (98-107) Carbon Dioxide Level 29 mmol/L (21-32) Anion Gap 10 (6-14) Blood Urea Nitrogen 85 mg/dL (7-20) Creatinine 2.4 mg/dL (0.6-1.0) Estimated GFR (Cockcroft-Gault) 19.0 BUN/Creatinine Ratio 35 (6-20) Glucose Level 156 mg/dL (70-99) Calcium Level 8.2 mg/dL (8.5-10.1) Magnesium Level 2.7 mg/dL (1.8-2.4) Total Bilirubin 0.6 mg/dL (0.2-1.0) Aspartate Amino Transf (AST/SGOT) 16 U/L (15-37) Alanine Aminotransferase (ALT/SGPT) 9 U/L (14-59) Alkaline Phosphatase 88 U/L (46-116) Total Protein 6.1 g/dL (6.4-8.2) Albumin 3.0 g/dL (3.4-5.0) Albumin/Globulin Ratio 1.0 (1.0-1.7) Triglycerides Level 47 mg/dL (0-150) Cholesterol Level 60 mg/dL (0-200) LDL Cholesterol, Calculated 29 mg/dL (0-100) VLDL Cholesterol, Calculated 9 mg/dL (0-40) Non-HDL Cholesterol Calculated 38 mg/dL (0-129) HDL Cholesterol 22 mg/dL (40-60) Cholesterol/HDL Ratio 2.7 Test 11/09/16 11:48 Glucose (Fingerstick) 214 mg/dL (70-99) Medication Medications Current Medications Aspirin (Children'S Aspirin) 81 mg DAILYWBKFT PO Last administered on 08:53; Start 11/08/16 at 18:00 Atorvastatin Calcium (Lipitor) 40 mg QHS PO ; Start 11/08/16 at 21:00; Status UNV Carvedilol (Coreg) 12.5 mg BIDWMEALS PO Last administered on 11/09/16 08:53; Start 11/08/16 at 17:00 Dextrose (Dextrose 50%-Water Syringe) 12.5 gm PRN Q15MIN PRN IV SEE COMMENTS; Start 11/09/16 at 13:00 Vitamin B Complex/ Vitamin C (Taylor-Aditya) 1 tab DAILY PO Last administered on 08:52; Start 11/09/16 at 09:00 Comment Review of Relevant I have reviewed the following items skip (where applicable) has been applied. MARIO JUSTICE MD Nov 09, 2016 14:40
[2016-11-09] MEDS ORDERED: IV NORMAL SALINE 1000ML BAG 1,000 ML IV SCH (18:00)
[2016-11-09 18:18] LABS: HEMATOCRIT 22.8 % (36.0-47.0); HEMOGLOBIN 7.5 g/dL (12.0-15.5)
--- NOTE | 2016-11-09 18:58 | EEG ---
DATE OF SERVICE: 11/09/2016 OBJECTIVE: This is an 89-year-old female patient with history of mental status changes, decreased response, and confusion. EEG was requested to evaluate cerebral activity. METHODS: Twenty electrodes were applied according to the international 10-20 electrode placement system. EKG monitoring, hyperventilation, intermittent photic stimulation, monopolar and bipolar montages are routinely utilized. The record was obtained on a digital system with video monitoring. FINDINGS: 1. Background: The patient was recorded in the awake, drowsy, and sleep states. The overall background amplitude is 5-10 microvolts. A posterior dominant rhythm of 6-7 Hz is observed occasionally but is with a superimposed mixture in theta and delta frequencies. 2. Abnormalities: No specific epileptiform discharge or electrographic seizure is seen. Diffuse slowing in theta and delta frequencies throughout the entire recording. 3. Activation: Hyperventilation was not performed because the patient was unable to follow the commands. Intermittent photic stimulation was performed with photic driving. IMPRESSION: This EEG is an abnormal study for the awake, drowsy, and sleep states. The posterior dominant rhythm of 6-7 Hz is slow for age. There is a superimposed slowing in theta and delta frequencies throughout the entire recording. No focal, lateralizing, specific epileptiform discharge, or electrographic seizure is seen. This pattern of EEG may suggest encephalopathy. MARIO JUSTICE MD DR: Talisha JOB#: [id number] / [id number] DEAN
--- NOTE | 2016-11-09 19:48 | RAD ---
EXAM: Brain MRI without contrast. HISTORY: Weakness. TECHNIQUE: Multiplanar, multisequence magnetic resonance imaging of the brain was performed without contrast. COMPARISON: MRI dated 01/11/2016. FINDINGS: There is no restricted diffusion to suggest acute or subacute infarction. There is no susceptibility effect to suggest hemorrhage. There is a focus of susceptibility effect within the posterior left temporal lobe which is likely artifactual. There are chronic infarcts within the bilateral basal ganglia and frontal periventricular white matter. There are chronic infarcts within the right cerebellum. There is extensive T2/FLAIR hyperintensity throughout the cerebral white matter, likely due to chronic small vessel disease. There is cerebral atrophy with compensatory enlargement of the ventricles. There are findings consistent with lens surgery. There is mild paranasal sinus mucosal thickening. There is a small amount of fluid within left mastoid air cells. The sella is prominent, but not clearly empty. There is stable 1.7 cm cystic lesion within the right maxillary soft tissues, possibly a sebaceous cyst. IMPRESSION: 1. No acute intracranial finding. 2. Extensive areas of signal change within the cerebral white matter, a nonspecific finding likely due to chronic small vessel disease. 3. Chronic infarct within the lateral basal ganglia, frontal periventricular white matter and right cerebellum. 4. Cerebral atrophy. Electronically signed by: Buffy Bain MD (11/09/2016 7:44 PM)
[2016-11-09 21:04] LABS: NEG OBC FOB NEG; POS OBC FOB POS
--- NOTE | 2016-11-09 21:52 | RAD ---
GI bleeding study dated 11/09/2016. No comparison available. Clinical indication: Bloody stools. FINDINGS: Dedicated tagged red blood cell bleeding scan performed after the administration of 28 mCi of technetium 99 and UltraTag RBC. Sequential imaging performed at 5 minute frames for a total of one hour. Initial 5 minute frames shows normal expected activity within the blood pool, liver and spleen. No abnormal activity throughout the GI tract during the exam. On the final 2 frames, there are 2 foci of increased activity in the right upper quadrant that are likely artifactual. IMPRESSION: No scintigraphic evidence of active GI hemorrhage. Electronically signed by: Denys Etienne MD (11/09/2016 9:49 PM)
[2016-11-09] MEDS: ATORVASTATIN CALCIUM 40 MG TABLET. PO SCH (22:22)
[2016-11-09] MEDS: PANTOPRAZOLE IV PUSH 40 MG VIAL. IVP SCH (22:22)
[2016-11-09 23:08] LABS: HEMATOCRIT 21.4 % (36.0-47.0)
[2016-11-10] VITALS (10 sets, daily range): BP systolic 130–173; BP diastolic 53–84
--- NOTE | 2016-11-10 02:24 | PN ---
DATE: 11/09/2016 SUBJECTIVE: The patient is resting slightly propped up in bed, sleepy, but arousable. On questioning her, denied any complaint, particularly denied any chest pain or shortness of breath. She was seen by the Neurology team and she is scheduled for an EEG to be done this morning. PHYSICAL EXAMINATION: GENERAL: When I examined her, she was pale, but no jaundice, cyanosis or thyromegaly. No jugular venous distention. No limb edema. VITAL SIGNS: Her heart rate was 75, blood pressure 122/59, temperature was 97.5, respiratory rate 20, and oxygen saturation was 99% on ____ liters of oxygen by nasal cannula. HEAD, EYES, EARS, NOSE AND THROAT: Showed normocephalic, atraumatic. NECK: Supple. HEART: Showed normal first and second heart sounds with no gallop, rub or murmur. CHEST: Clear to auscultation. No crepitation or rhonchi. ABDOMEN: Distended, soft, nontender. No guarding or rigidity. No organomegaly. Hernial orifices intact. Bowel sounds normal. NEUROLOGIC: She was sleepy, but arousable, opens eyes, tracks and responds appropriately. Cranial nerves intact. She moves all extremities to a much greater extent than her lower extremities. She is mostly bedbound, chair bound. Her intake over the last 24 hours was 1020, output was 1550. LABORATORY DATA: As of this morning, her white cell count was 4900, hemoglobin 7.4, hematocrit 23, MCV 91, and platelet count 155,000. Her chemistry showed a serum sodium of 143, potassium 3.9, chloride 104, bicarbonate 29, anion gap of 10, BUN 85, creatinine 2.4, estimated GFR was 20 mL per minute. Her glucose was 156, calcium was 8.2, magnesium was 2.4 with total bilirubin, AST, ALT, alkaline phosphatase were normal. Total protein was 6.1, albumin 3. ASSESSMENT: Change in mental status and generalized weakness with [id number] kidney injury. Her blood sugar is much better controlled now. Kidney function is improving. Her BUN is down to 85, creatinine 2.4. Her H and H is slightly down to 7.4 and 23; however, her white cell count and platelets are normal. She was seen by the neurologist and she is scheduled for an EEG. PLAN: My plan is to discontinue the IV fluid and repeat her labs tomorrow including the hematinics. If she remained stable and no evidence of any seizure activity, we will discharge her back. OLI TERRY MD DR: HOWARD/yoladna JOB#: [id number] / [id number]
[2016-11-10 04:54] LABS: % SAT IRON 10 % (15-34); IRON,SERUM 21 ug/dL (50-170)
[2016-11-10 05:32] LABS: CALCIUM 8.5 mg/dL (8.5-10.1); CREATININE 2.2 mg/dL (0.6-1.0); POTASSIUM 4.1 mmol/L (3.5-5.1)
[2016-11-10] MEDS: PANTOPRAZOLE IV PUSH 40 MG VIAL. IVP SCH ×2 (06:26→20:16)
[2016-11-10 08:09] LABS: HEMATOCRIT 23.3 % (36.0-47.0); HEMOGLOBIN 7.8 g/dL (12.0-15.5)
[2016-11-10] MEDS: ASPIRIN CHEWABLE 81 MG TABLET. PO SCH (08:58)
[2016-11-10] MEDS: INSULIN ASPART 300 UNITS/3 ML INSULN.PEN SQ SCH ×3 (08:59→17:20)
[2016-11-10] MEDS: TAMSULOSIN 0.4 MG CAP.ER.24H. PO SCH (09:01)
[2016-11-10] MEDS: VENLAFAXINE XR 37.5 MG CAP.ER.24H. PO SCH (09:01)
[2016-11-10] MEDS: GABAPENTIN 300 MG CAPSULE. PO SCH (09:01)
[2016-11-10] MEDS: levETIRAcetam 500 MG TABLET PO SCH ×2 (09:01→20:16)
[2016-11-10] MEDS: FOLIC/VIT B COMP W-C (RENAL) TABLET. PO SCH (09:01)
[2016-11-10] MEDS: CARVEDILOL 12.5 MG TABLET. PO SCH ×2 (09:02→17:15)
[2016-11-10] MEDS: PANTOPRAZOLE 40 MG TABLET.DR. PO SCH (09:02)
[2016-11-10 11:58] LABS: HEMATOCRIT 25.8 % (36.0-47.0); HEMOGLOBIN 8.4 g/dL (12.0-15.5)
--- NOTE | 2016-11-10 12:23 | PDOC ---
PROGRESS NOTES Assessment Assessment MS changes. Generalized weakness. Metabolic encephalopathy. 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 No evidence of acute CVA this time. RECOMMENDATIONS/PLAN: Treat UTI. Continue ASA daily. Continue Lipitor HS. Treat medical diseases. OT/PT. EEG on 11/09: encephalopathy. MRI on 11/09: No acute CVA. HISTORY OF THE PRESENT ILLNESS: 89-y-old female patient with complicated medical history was noted mental status changes and weakness as generalized type per Hx. Her HCT was unremarkable. PAST MEDICAL HISTORY: Please see above. PAST SURGERY HISTORY: CABG Tonsillectomy Cholecystectomy Hysterectomy ALLERGY: Reviewed. MEDICATIONS: Refer to [facility] FAMILY HISTORY: Non contributory. SOCIAL HISTORY: Lives in [facility]. Denies current smoking, drinking, and illicit drug use. REVIEW OF SYSTEMS: Constitutional: No malnutrition, weight loss, cachexia. Head: No recent traumatic brain or head injury. Skin: No edema, or rash. Ear: No infection. Eyes: No vision loss or color blindness. Nose: No bleeding or purulent discharges. Hearing: Hearing decrease. Neck: No injury. Breast: No history of cancer, masses,or discharges. Cardiac: CAD, s/p CABG, AFib, HTN, HLD. Pulmonary: COPD. GI: No GI ulcer, GI bleeding. Urinary/genital: UTI. Endocrinologic: Diabetes Mellitus. Skeletomuscular: No muscular atrophy, deformity. Neurological: see HP. Psychiatric: Denies drug use/abuse. Otherwise, not [id number] review of systems. PHYSICAL EXAMINATION: General appearance is sleepiness. HEENT: Normocephalic and nontraumatic. Eyes, nose, ears, and throat are unremarkable. Neck is supple. No lymphadenopathy. No crepitus. Cardiovascular: S1, S2, irregular rate and rhythm. Pulmonary: Clear to auscultation bilaterally. Abdomen: Bowel sounds are positive. Abdomen is soft, nontender, and nondistended. Extremities: No rash, lesions, or edema. No restriction of range of motion NEUROLOGICAL EXAMINATION: Sleepiness but arousable. Not oriented to time, place but may know person. PERRL. EOMI. CN: no focal findings. Muscle tone: within normal. Muscle strength: 4 UE, 2+ LE DTR: 0-1 at knee Plantar reflex: Neutral response bilaterally Gait: not examined in bed. Sensory exam: no abnormal findings. No acute cerebellar signs elicited. F-T-N test not performed due to not follow commands. Objective Objective Vital Signs Date Time Temp Pulse Resp B/P (MAP) Pulse Ox O2 Delivery O2 Flow Rate FiO2 11/10/16 10:59 96.8 84 24 146/70 (95) 99 Nasal Cannula 2.0 96.8 Intake and Output 11/10/16 07:00 Intake Total 1000 ml Output Total 2150 ml Balance -1150 ml Intake Oral 850 ml Blood Product IV Normal Saline Flush 150 ml Output Urine Total 2150 ml # Bowel Movements 1 Vitals Signs Vitals VS - Last 72 Hours, by Label Date Time Temp Pulse Resp B/P (MAP) Pulse Ox O2 Delivery O2 Flow Rate FiO2 11/10/16 10:59 96.8 84 24 146/70 (95) 99 Nasal Cannula 2.0 96.8 11/10/16 09:02 89 135/78 11/10/16 07:05 97.5 89 19 135/78 (97) 99 Nasal Cannula 2.0 97.5 11/10/16 06:16 97.8 85 22 158/56 97.8 11/10/16 05:31 97.4 96 20 130/58 97.4 11/10/16 04:31 97.5 89 20 144/63 97.5 11/10/16 04:15 97.4 87 20 148/67 97.4 11/10/16 03:02 98.2 79 20 133/53 (79) 100 Nasal Cannula 2.0 98.2 11/09/16 23:05 98.4 92 20 151/61 (91) 99 Nasal Cannula 2.0 98.4 11/09/16 20:00 Nasal Cannula 2.0 11/09/16 19:27 97.9 85 20 143/66 (91) 100 Nasal Cannula 2.0 97.9 11/09/16 18:02 100 151/71 (97) 11/09/16 18:02 100 151/71 11/09/16 14:48 97.7 92 19 144/72 (96) 99 Nasal Cannula 2.0 97.7 11/09/16 11:06 97.4 93 20 141/70 (93) 98 Nasal Cannula 2.0 97.4 11/09/16 08:53 75 122/59 11/09/16 08:00 Nasal Cannula 2.0 11/09/16 07:22 97.5 75 20 122/59 (80) 99 Nasal Cannula 2.0 97.5 Laboratory Laboratory Laboratory Tests Test 11/09/16 17:20 11/09/16 17:40 11/09/16 18:05 11/09/16 21:38 Stool Occult Blood Positive (NEG) Glucose (Fingerstick) 188 mg/dL (70-99) 177 mg/dL (70-99) Hemoglobin 7.5 g/dL (12.0-15.5) Hematocrit 22.8 % (36.0-47.0) Mean Corpuscular Hemoglobin Concent 33 g/dL (31-37) Test 11/09/16 22:30 11/10/16 03:40 11/10/16 07:06 11/10/16 07:30 Hemoglobin 7.0 g/dL (12.0-15.5) 7.8 g/dL (12.0-15.5) Hematocrit 21.4 % (36.0-47.0) 23.3 % (36.0-47.0) Mean Corpuscular Hemoglobin Concent 33 g/dL (31-37) Sodium Level 143 mmol/L (136-145) Potassium Level 4.1 mmol/L (3.5-5.1) Chloride Level 108 mmol/L (98-107) Carbon Dioxide Level 29 mmol/L (21-32) Anion Gap 6 (6-14) Blood Urea Nitrogen 76 mg/dL (7-20) Creatinine 2.2 mg/dL (0.6-1.0) Estimated GFR (Cockcroft-Gault) 21.0 Glucose Level 149 mg/dL (70-99) Calcium Level 8.5 mg/dL (8.5-10.1) Iron Level 21 ug/dL (50-170) Total Iron Binding Capacity 207 ug/dL (250-450) Iron Saturation 10 % (15-34) Ferritin 214 ng/mL (8-252) Glucose (Fingerstick) 141 mg/dL (70-99) Test 11/10/16 11:35 11/10/16 11:50 Glucose (Fingerstick) 157 mg/dL (70-99) Hemoglobin 8.4 g/dL (12.0-15.5) Hematocrit 25.8 % (36.0-47.0) Mean Corpuscular Hemoglobin Concent 33 g/dL (31-37) Microbiology 11/07/16 Urine Culture - Final, Complete 11/07/16 Urine Culture Result 1 (AYDE) - Final, Complete Medication Medications Current Medications Dextrose (Dextrose 50%-Water Syringe) 12.5 gm PRN Q15MIN PRN IV SEE COMMENTS; Start 11/09/16 at 13:00 Dextrose (Dextrose 50%-Water Syringe) 12.5 gm PRN Q15MIN PRN IV SEE COMMENTS; Start 11/09/16 at 18:00 Insulin Aspart (NovoLOG) 0-7 UNITS TIDWMEALS SQ ; Start 11/10/16 at 08:00 Pantoprazole Sodium (Protonix Vial) 40 mg BID IVP Last administered on 06:26; Start 11/09/16 at 21:00 Sodium Chloride 1,000 ml @ 50 mls/hr Q20H IV Last administered on 11/09/16 17 :54; Start 11/09/16 at 18:00; Stop 11/10/16 at 10:18; Status DC Comment Review of Relevant I have reviewed the following items skip (where applicable) has been applied. MARIO JUSTICE MD Nov 10, 2016 12:23
[2016-11-10] MEDS: ATORVASTATIN CALCIUM 40 MG TABLET. PO SCH (20:16)
[2016-11-10 23:27] LABS: HEMATOCRIT 25.1 % (36.0-47.0); HEMOGLOBIN 8.2 g/dL (12.0-15.5)
[2016-11-11] VITALS (25 sets, daily range): BP systolic 144–179; BP diastolic 73–99
[2016-11-11 01:10] LABS: HEMOGLOBIN 5.6 g/dL (12.0-15.5)
[2016-11-11 01:11] LABS: HEMATOCRIT 17.4 % (36.0-47.0)
--- NOTE | 2016-11-11 04:41 | PN ---
DATE: 11/10/2016 SUBJECTIVE: The patient is resting, slightly propped up, sleeping comfortably. She is very drowsy, but she wakes up and she opens her eyes and responds appropriately. She had had fresh blood per rectum last night and she dropped her hemoglobin down to 7 with hematocrit 21. She did receive 1 unit of packed RBCs and this morning, her hemoglobin was 7.8, hematocrit 23.3. On questioning her this morning, she denied any abdominal pain. Denied any nausea or vomiting. She did state that she is slightly short of breath. OBJECTIVE: GENERAL: When I examined her, she looked pale, no jaundice, cyanosis or thyromegaly. No jugular venous distension. No lower limb edema. VITAL SIGNS: Her heart rate was 89, blood pressure 135/78, temperature was 97.5, respiratory rate was 19 and oxygen saturation was 99% on 2 liters of oxygen. HEAD, EYES, EARS, NOSE AND THROAT: Normocephalic, atraumatic. NECK: Supple. HEART: Showed normal first and second heart sounds with no gallop, rub or murmur. CHEST: Clear to auscultation. No crepitation or rhonchi. ABDOMEN: Distended, soft, nontender. No guarding or rigidity. No organomegaly. All hernial orifices intact. Bowel sounds normal. NEUROLOGIC: She is lethargic, but arousable. All cranial nerves intact. She moves upper extremities to a much greater extent than lower extremities. She is mostly bed bound, chair bound. Her intake over the last 24 hours was 1000, output was 2100. LABORATORY DATA: As of this morning, her serum sodium was 143, potassium 4.1, chloride 108, bicarbonate 29, anion gap of 6, BUN 76, creatinine 2.2. Estimated GFR was 21. Blood sugar was 149, calcium was 8.5. Serum iron was 21, total iron binding capacity was 207, percent saturation was 10 and serum ferritin was 214. Serum B12 was 903 pg/mL. TSH was 2.66. ASSESSMENT: 1. Mental status change and generalized weakness, most likely due to metabolic encephalopathy. Her blood sugar was persistently low on admission. 2. Acute on chronic kidney injury, resolving. Her BUN is down from 91 to 76 and creatinine down from 3 to 2.2. 3. Acute gastrointestinal bleed with a hemoglobin that dropped down from 7.9 to 7 and hematocrit dropped down from 24 to 23. She did receive 1 unit of packed RBCs. 4. The patient has had an EEG done, showed diffuse slowing in theta and delta frequencies throughout the entire recording and that the patient has no focal, lateralizing specific epileptiform discharge or electrographic seizure seen. The patient's EEG is suggestive of encephalopathy. PLAN: To switch her to a clear liquid diet and stop the aspirin, check her H and H every 6 hours and transfuse her if hemoglobin is 7 or equal to 7. We have already consulted the GI service. OLI TERRY MD DR: HOWARD/yolanda JOB#: [id number] / [id number]
--- NOTE | 2016-11-11 05:56 | CONS ---
DATE OF CONSULTATION: 11/10/2016 REQUESTING PHYSICIAN: Dr. Vital. REASON FOR CONSULTATION: Bloody stools. HISTORY OF PRESENT ILLNESS: This is an 89-year-old female who was admitted to [facility] on 11/07/2016 for altered mental status. She has been a resident at the [facility] and was brought in to the Emergency Room for generalized weakness and difficulty ____. There was a question of whether she had had a syncopal episode. She was found to be in renal failure and has been managed for that as well as hyperglycemia. Her initial hemoglobin on admission was 7.9. She had a bloody stool yesterday and was found to have a hemoglobin of 7.4. This dropped to 7.0 and she received 1 unit of packed red blood cells. Her last measured hemoglobin was 11.4. In total, she has had 2 bowel movements that had been dark with blood streaks. She denies a history of constipation or blood in her stools. PAST MEDICAL HISTORY: 1. Coronary artery disease. 2. CHF. 3. Hypertension. 4. Hyperlipidemia. 5. History of cerebrovascular accident. 6. Type 2 diabetes. 7. Recurrent UTIs. 8. Cholecystectomy. 9. CABG. 10. Hysterectomy. FAMILY MEDICAL HISTORY: Noncontributory. SOCIAL HISTORY: She is a resident at [place]. No known tobacco, alcohol or IV drug abuse. REVIEW OF SYSTEMS: A 13-point review of systems was done. It is positive as per HPI and otherwise negative. HOME MEDICATIONS: Include: 1. Tylenol. 2. Albuterol. 3. Atorvastatin. 4. Carvedilol. 5. Diltiazem. 6. Nephro-Aditya. 7. Hyoscyamine. 8. NovoLog. 9. Levemir. 10. Keppra. 11. Magnesium hydroxide or milk of magnesia. 12. Nitroglycerin. 13. Protonix. 14. MiraLax. 15. Tamsulosin. 16. Tramadol. 17. Venlafaxine. ALLERGIES: ____. CURRENT MEDICATIONS: 1. Insulin 2. Protonix. 3. Dextrose. 4. Aspirin. 5. Carvedilol. 6. Gabapentin. 7. Venlafaxine. 8. Tamsulosin. 9. Tramadol. 10. MiraLax. 11. Nitroglycerin. 12. Milk of magnesia. 13. Hyoscyamine 14. Albuterol. 15. Atorvastatin. 16. Keppra PHYSICAL EXAMINATION: VITAL SIGNS: Temperature is 96.8, blood pressure 146/70, and heart rate 84. GENERAL: She is an elderly appearing female in no apparent distress. HEENT: Oropharynx is clear. CARDIOVASCULAR: S1, S2. LUNGS: Have decreased breath sounds with occasional crackles. ABDOMEN: Normoactive bowel sounds, soft, nontender, and nondistended. EXTREMITIES: No edema. NEUROLOGIC: She is awake, alert and oriented to person and place only. LABORATORY DATA: Current hemoglobin of 8.4, and platelets have been 164. Coags show an INR of 1.3. ____ show creatinine of 2.2. Her iron is low at 21, TIBC low at 207, and iron saturation is low 10. LFTs have not been checked. IMAGING: Bleeding scan performed 11/09/2016 was negative for an active bleed. ASSESSMENT AND PLAN: 1. Rectal bleeding. Differential diagnosis includes hemorrhoidal bleed versus diverticular bleed versus possible malignancy versus colitis versus upper GI bleed. At this time, she has been started on Protonix. She is on an 81 mg aspirin, but otherwise no other NSAIDs or blood thinners are noted. Her drop in hemoglobin has been fairly minor and she has responded to packed red blood cells. I have attempted to call her family member ____ to get more information regarding whether or not she has ever had a colonoscopy. The patient states that she does not know and she cannot tell me if she is having any GI symptoms. At this time, I would continue to monitor her hemoglobin and continue Protonix and avoid any unnecessary NSAIDs. We may need to consider endoscopy if she has a more precipitous drop in her hemoglobin or more rapid bleeding. 2. Anemia with iron deficiency: Her pattern suggests chronic disease with all of her indices being low. I will go ahead and check a ferritin as well and consider starting iron after this bleeding episode has resolved. Thank you for allowing me to participate in the care of this patient. ROJELIO RENE MD DR: YAW/yolanda JOB#: [id number] / [id number] OLI Perea MD
[2016-11-11 07:04] LABS: HEMATOCRIT 31.7 % (36.0-47.0); HEMOGLOBIN 10.2 g/dL (12.0-15.5)
[2016-11-11 07:15] LABS: CALCIUM 9.1 mg/dL (8.5-10.1); CREATININE 1.9 mg/dL (0.6-1.0); GFR 24.9; POTASSIUM 4.3 mmol/L (3.5-5.1)
[2016-11-11] MEDS: INSULIN ASPART 300 UNITS/3 ML INSULN.PEN SQ SCH ×3 (08:00→16:39)
[2016-11-11] MEDS: CARVEDILOL 12.5 MG TABLET. PO SCH ×2 (08:00→16:38)
[2016-11-11] MEDS: ASPIRIN CHEWABLE 81 MG TABLET. PO SCH (08:00)
[2016-11-11] MEDS: GABAPENTIN 300 MG CAPSULE. PO SCH (08:25)
[2016-11-11] MEDS: VENLAFAXINE XR 37.5 MG CAP.ER.24H. PO SCH (08:25)
[2016-11-11] MEDS: TAMSULOSIN 0.4 MG CAP.ER.24H. PO SCH (08:25)
[2016-11-11] MEDS: FOLIC/VIT B COMP W-C (RENAL) TABLET. PO SCH (08:26)
[2016-11-11] MEDS: PANTOPRAZOLE IV PUSH 40 MG VIAL. IVP SCH ×2 (08:33→21:03)
[2016-11-11] MEDS: LABETALOL 20 MG/4 ML DISP.SYRIN. IVP PRN ×3 (10:11→19:08)
--- NOTE | 2016-11-11 11:44 | PDOC ---
Subjective: Subjective: Pt transfused to the ICU overnight for drop in Hgb. Per nurse, lst BM was dark without red blood. Objective: Vital Signs: Vital Signs Date Time Temp Pulse Resp B/P (MAP) Pulse Ox O2 Delivery O2 Flow Rate FiO2 11/11/16 11:00 111 19 156/87 (110) 99 Nasal Cannula 2.0 11/11/16 08:00 97.7 97.7 Labs: Laboratory Tests Test 11/10/16 11:50 11/10/16 16:43 11/10/16 19:22 11/10/16 20:00 Hemoglobin 8.4 g/dL (12.0-15.5) 8.2 g/dL (12.0-15.5) Hematocrit 25.8 % (36.0-47.0) 25.1 % (36.0-47.0) Mean Corpuscular Hemoglobin Concent 33 g/dL (31-37) 33 g/dL (31-37) Glucose (Fingerstick) 164 mg/dL (70-99) 228 mg/dL (70-99) Test 11/11/16 00:50 11/11/16 06:30 11/11/16 08:33 Hemoglobin 5.6 g/dL (12.0-15.5) 10.2 g/dL (12.0-15.5) Hematocrit 17.4 % (36.0-47.0) 31.7 % (36.0-47.0) Mean Corpuscular Hemoglobin Concent 32 g/dL (31-37) 32 g/dL (31-37) Sodium Level 143 mmol/L (136-145) Potassium Level 4.3 mmol/L (3.5-5.1) Chloride Level 107 mmol/L (98-107) Carbon Dioxide Level 27 mmol/L (21-32) Anion Gap 9 (6-14) Blood Urea Nitrogen 65 mg/dL (7-20) Creatinine 1.9 mg/dL (0.6-1.0) Estimated GFR (Cockcroft-Gault) 24.9 Glucose Level 176 mg/dL (70-99) Calcium Level 9.1 mg/dL (8.5-10.1) Ferritin 284 ng/mL (8-252) Glucose (Fingerstick) 159 mg/dL (70-99) Physical Exam: Physical Exam: GEN: NAD HEENT: OP clear CV: S1S2 without murmurs, rubs, or gallops RESP: CTAB ABD: NABS, SNT/ND EXT: No edema NEURO: AAO x 2 Assessment & Plan: Assessment : 1) GIB: On PPI IVP b/c hospital out of med. Favor EGD. The nurse and I have both tried to contact the DPOA who made her DNR/DNI today. Plan: Continue daily PPI as available. Prn prbcs Favor EGD today if we can contact her family Problems: ANGE FISHER MD Nov 11, 2016 11:44
[2016-11-11 12:19] LABS: HEMOGLOBIN 9.8 g/dL (12.0-15.5)
--- NOTE | 2016-11-11 13:28 | PDOC ---
PROGRESS NOTES Assessment Assessment Generalized weakness. Metabolic encephalopathy. 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 No evidence of acute CVA this time. RECOMMENDATIONS/PLAN: Treat UTI. Treat anemia. Consulted GI for rectal bleeding. Continue ASA daily. Continue Lipitor HS. Treat medical diseases. OT/PT. EEG on 11/09: encephalopathy. MRI on 11/09: No acute CVA. HISTORY OF THE PRESENT ILLNESS: 89-y-old female patient with complicated medical history was noted mental status changes and weakness as generalized type per Hx. Her HCT was unremarkable. PAST MEDICAL HISTORY: Please see above. PAST SURGERY HISTORY: CABG Tonsillectomy Cholecystectomy Hysterectomy ALLERGY: Reviewed. MEDICATIONS: Refer to [facility] FAMILY HISTORY: Non contributory. SOCIAL HISTORY: Lives in [facility]. Denies current smoking, drinking, and illicit drug use. REVIEW OF SYSTEMS: Constitutional: No malnutrition, weight loss, cachexia. Head: No recent traumatic brain or head injury. Skin: No edema, or rash. Ear: No infection. Eyes: No vision loss or color blindness. Nose: No bleeding or purulent discharges. Hearing: Hearing decrease. Neck: No injury. Breast: No history of cancer, masses,or discharges. Cardiac: CAD, s/p CABG, AFib, HTN, HLD. Pulmonary: COPD. GI: No GI ulcer, GI bleeding. Urinary/genital: UTI. Endocrinologic: Diabetes Mellitus. Skeletomuscular: No muscular atrophy, deformity. Neurological: see HP. Psychiatric: Denies drug use/abuse. Otherwise, not [id number] review of systems. PHYSICAL EXAMINATION: General appearance is sleepiness. HEENT: Normocephalic and nontraumatic. Eyes, nose, ears, and throat are unremarkable. Neck is supple. No lymphadenopathy. No crepitus. Cardiovascular: S1, S2, irregular rate and rhythm. Pulmonary: Clear to auscultation bilaterally. Abdomen: Bowel sounds are positive. Abdomen is soft, nontender, and nondistended. Extremities: No rash, lesions, or edema. No restriction of range of motion NEUROLOGICAL EXAMINATION: Sleepiness but arousable. Not oriented to time, knows place and person. PERRL. EOMI. CN: no focal findings. Muscle tone: within normal. Muscle strength: 4 UE, 2+ LE DTR: 0-1 at knee Plantar reflex: Neutral response bilaterally Gait: not examined in bed. Sensory exam: no abnormal findings. No acute cerebellar signs elicited. Objective Objective Vital Signs Date Time Temp Pulse Resp B/P (MAP) Pulse Ox O2 Delivery O2 Flow Rate FiO2 11/11/16 11:00 111 19 156/87 (110) 99 Nasal Cannula 2.0 11/11/16 08:00 97.7 97.7 Intake and Output 11/11/16 07:00 Intake Total 1010 ml Output Total 720 ml Balance 290 ml Intake Oral 660 ml Blood Product IV Normal Saline Flush 350 ml Output Urine Total 720 ml # Bowel Movements 3 Vitals Signs Vitals VS - Last 72 Hours, by Label Date Time Temp Pulse Resp B/P (MAP) Pulse Ox O2 Delivery O2 Flow Rate FiO2 11/11/16 11:00 111 19 156/87 (110) 99 Nasal Cannula 2.0 11/11/16 10:11 104 146/74 11/11/16 10:00 104 24 146/74 (98) 99 Nasal Cannula 2.0 11/11/16 09:00 100 21 161/91 (114) 99 Nasal Cannula 2.0 11/11/16 08:00 Nasal Cannula 2.0 11/11/16 08:00 97.7 98 18 158/80 (106) 99 Nasal Cannula 2.0 97.7 11/11/16 07:00 92 22 144/77 (99) 100 Nasal Cannula 2.0 11/11/16 06:00 93 22 161/73 (102) 100 Nasal Cannula 2.0 11/11/16 05:04 97.3 98 22 179/86 97.3 11/11/16 05:00 101 23 157/94 (115) 100 Nasal Cannula 2.0 11/11/16 04:02 97.4 92 24 159/75 97.4 11/11/16 04:00 92 24 159/75 (103) 98 Nasal Cannula 2.0 11/11/16 04:00 Nasal Cannula 2.0 11/11/16 03:02 98.0 96 25 154/80 98.0 11/11/16 03:00 89 16 158/88 (111) 91 Nasal Cannula 2.0 11/11/16 02:47 97.9 90 23 177/79 97.9 11/10/16 22:47 97.5 85 19 165/67 (99) 93 Nasal Cannula 2.0 97.5 11/10/16 20:00 Nasal Cannula 2.0 11/10/16 19:00 98.1 102 18 173/75 (107) 95 Nasal Cannula 2.0 98.1 11/10/16 17:15 92 167/84 11/10/16 15:04 96.6 92 22 167/84 (111) 98 Nasal Cannula 2.0 96.6 11/10/16 10:59 96.8 84 24 146/70 (95) 99 Nasal Cannula 2.0 96.8 11/10/16 09:02 89 135/78 11/10/16 08:00 Nasal Cannula 2.0 11/10/16 07:05 97.5 89 19 135/78 (97) 99 Nasal Cannula 2.0 97.5 Laboratory Laboratory Laboratory Tests Test 11/10/16 16:43 11/10/16 19:22 11/10/16 20:00 11/11/16 00:50 Glucose (Fingerstick) 164 mg/dL (70-99) 228 mg/dL (70-99) Hemoglobin 8.2 g/dL (12.0-15.5) 5.6 g/dL (12.0-15.5) Hematocrit 25.1 % (36.0-47.0) 17.4 % (36.0-47.0) Mean Corpuscular Hemoglobin Concent 33 g/dL (31-37) 32 g/dL (31-37) Test 11/11/16 06:30 11/11/16 08:33 11/11/16 12:00 Hemoglobin 10.2 g/dL (12.0-15.5) 9.8 g/dL (12.0-15.5) Hematocrit 31.7 % (36.0-47.0) 30.0 % (36.0-47.0) Mean Corpuscular Hemoglobin Concent 32 g/dL (31-37) 33 g/dL (31-37) Sodium Level 143 mmol/L (136-145) Potassium Level 4.3 mmol/L (3.5-5.1) Chloride Level 107 mmol/L (98-107) Carbon Dioxide Level 27 mmol/L (21-32) Anion Gap 9 (6-14) Blood Urea Nitrogen 65 mg/dL (7-20) Creatinine 1.9 mg/dL (0.6-1.0) Estimated GFR (Cockcroft-Gault) 24.9 Glucose Level 176 mg/dL (70-99) Calcium Level 9.1 mg/dL (8.5-10.1) Ferritin 284 ng/mL (8-252) Glucose (Fingerstick) 159 mg/dL (70-99) Microbiology 11/07/16 Urine Culture - Final, Complete 11/07/16 Urine Culture Result 1 (AYDE) - Final, Complete Medication Medications Current Medications Labetalol HCl (Normodyne) 10 mg Q4H PRN IVP HYPERTENSION, SEE COMMENTS Last administered on 11/11/16 10:11; Start 11/11/16 at 09:45 Levetiracetam 500 mg/Sodium Chloride 105 ml @ 420 mls/hr Q12HR IV Last administered on 11/11/16 08:49; Start 11/11/16 at 09:00 Comment Review of Relevant I have reviewed the following items skip (where applicable) has been applied. MARIO JUSTICE MD Nov 11, 2016 13:28
--- NOTE | 2016-11-11 13:49 | RAD ---
PQRS Compliance Statement: One or more of the following individualized dose reduction techniques were utilized for this examination: 1. Automated exposure control 2. Adjustment of the mA and/or kV according to patient size 3. Use of iterative reconstruction technique CT ABDOMEN PELVIS WO CONTRAST Clinical Indication: GI bleed Comparison: None. Technique: Helical CT imaging of the abdomen and pelvis is performed without IV or oral contrast. Findings: Evaluation of solid organs and bowel is limited without oral and IV contrast and may decrease sensitivity for detection of pathology. Moderate bilateral pleural effusions, larger on the right. Compressive atelectasis in the lung bases. Median sternotomy wires. Coronary artery disease. Mild cardiomegaly. Mild perihepatic free fluid. Gallbladder not seen, probably surgically absent. Liver, spleen, pancreas, adrenal glands, and abdominal aorta caliber are normal. Moderate atherosclerotic calcification of the abdominal aorta. Bilateral perinephric stranding, considerations include normal variant, renal insufficiency, less likely obstruction as no hydronephrosis is seen. Stomach not well distended. No dilated small bowel. Majority the colon is not well distended limiting evaluation. Difficult to exclude mild wall thickening of the proximal ascending colon, there is surrounding induration. Appendix not seen, no secondary signs of appendicitis. Pandey catheter in the bladder, bladder decompressed. Small amount of air in the lumen. Bladder wall thickness accentuated. Uterus surgically absent. No pelvic free fluid. No acute bone abnormality. IMPRESSION: 1. Limited evaluation of the colon due to lack of distention. Cannot exclude mild wall thickening of the ascending colon. There is mild stranding induration. Considerations include focal colitis, pseudothickening, or neoplasm. 2. Moderate bilateral pleural effusions. 3. Mild perihepatic free fluid.
--- NOTE | 2016-11-11 18:55 | PDOC ---
Provider Note Provider Note consult not paged out to me. when i stopped by ICU, nurses thought that Dr. Carson wanted to hold off on consult to Dr. Ramírez at this time since family has declined further endoscopy. I will d/w Dr. Ramírez tomorrow. I therefore did not see the pt today and have a message out to Dr. Carson. Of course, I am happy to evaluate the pt and assist in management in any manner helpful to those caring for her. DAGOBERTO GOYAL MD Nov 11, 2016 18:55
[2016-11-11 19:53] LABS: HEMATOCRIT 30.8 % (36.0-47.0); HEMOGLOBIN 10.1 g/dL (12.0-15.5)
[2016-11-11] MEDS: ATORVASTATIN CALCIUM 40 MG TABLET. PO SCH (21:03)
[2016-11-12] VITALS (36 sets, daily range): BP systolic 140–176; BP diastolic 66–99
[2016-11-12 00:41] LABS: HEMATOCRIT 30.6 % (36.0-47.0)
[2016-11-12 05:47] LABS: HEMATOCRIT 30.3 % (36.0-47.0); HEMOGLOBIN 10.2 g/dL (12.0-15.5); RED BLOOD COUNT 3.41 x10^6/uL (3.50-5.40); RED CELL DISTRIBUTION WIDTH 17.4 % (11.5-14.5); WHITE BLOOD COUNT 8.1 x10^3/uL (4.0-11.0)
[2016-11-12 06:10] LABS: GFR 23.5; POTASSIUM 5.1 mmol/L (3.5-5.1)
[2016-11-12] MEDS: CARVEDILOL 12.5 MG TABLET. PO SCH ×2 (08:00→10:56)
[2016-11-12] MEDS: INSULIN ASPART 300 UNITS/3 ML INSULN.PEN SQ SCH ×3 (08:00→17:08)
[2016-11-12] MEDS: ASPIRIN CHEWABLE 81 MG TABLET. PO SCH (08:00)
[2016-11-12] MEDS: PANTOPRAZOLE IV PUSH 40 MG VIAL. IVP SCH ×2 (08:36→21:35)
--- NOTE | 2016-11-12 08:49 | PDOC ---
PROGRESS NOTES Assessment Problems Medical Problems: (1) Acute on chronic renal failure Status: Acute (2) Syncope Status: Acute (3) Weakness generalized Status: Acute Metabolic encephalopathy. 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 No evidence of acute CVA Plan Will follow Subjective complains of whole body pain Objective Vital Signs Date Time Temp Pulse Resp B/P (MAP) Pulse Ox O2 Delivery O2 Flow Rate FiO2 11/12/16 06:00 112 26 160/86 (110) 98 Nasal Cannula 2.0 11/12/16 04:00 98.4 98.4 Intake and Output 11/12/16 07:00 Intake Total 0 ml Output Total 1147 ml Balance -1147 ml Intake Oral 0 ml Output Urine Total 1147 ml # Bowel Movements 1 PHYSICAL EXAM Alert. Oriented to place and person, not date. PERRL. EOMI. CN: no focal findings. Muscle tone: normal. Muscle strength: 4/5 DTR: 1+ Plantar reflex: flexor Gait: not examined in bed. Sensory exam: no abnormal findings. No cerebellar signs elicited. Review of Relevant I have reviewed the following items skip (where applicable) has been applied. Labs Laboratory Tests Test 11/10/16 11:35 11/10/16 11:50 11/10/16 16:43 11/10/16 19:22 Glucose (Fingerstick) 157 mg/dL (70-99) 164 mg/dL (70-99) 228 mg/dL (70-99) Hemoglobin 8.4 g/dL (12.0-15.5) Hematocrit 25.8 % (36.0-47.0) Mean Corpuscular Hemoglobin Concent 33 g/dL (31-37) Test 11/10/16 20:00 11/11/16 00:50 11/11/16 06:30 11/11/16 08:33 Hemoglobin 8.2 g/dL (12.0-15.5) 5.6 g/dL (12.0-15.5) 10.2 g/dL (12.0-15.5) Hematocrit 25.1 % (36.0-47.0) 17.4 % (36.0-47.0) 31.7 % (36.0-47.0) Mean Corpuscular Hemoglobin Concent 33 g/dL (31-37) 32 g/dL (31-37) 32 g/dL (31-37) Sodium Level 143 mmol/L (136-145) Potassium Level 4.3 mmol/L (3.5-5.1) Chloride Level 107 mmol/L (98-107) Carbon Dioxide Level 27 mmol/L (21-32) Anion Gap 9 (6-14) Blood Urea Nitrogen 65 mg/dL (7-20) Creatinine 1.9 mg/dL (0.6-1.0) Estimated GFR (Cockcroft-Gault) 24.9 Glucose Level 176 mg/dL (70-99) Calcium Level 9.1 mg/dL (8.5-10.1) Ferritin 284 ng/mL (8-252) Glucose (Fingerstick) 159 mg/dL (70-99) Test 11/11/16 12:00 11/11/16 14:11 11/11/16 16:36 11/11/16 19:45 Hemoglobin 9.8 g/dL (12.0-15.5) 10.1 g/dL (12.0-15.5) Hematocrit 30.0 % (36.0-47.0) 30.8 % (36.0-47.0) Mean Corpuscular Hemoglobin Concent 33 g/dL (-37) 33 g/dL (31-37) Glucose (Fingerstick) 170 mg/dL (70-99) 150 mg/dL (70-99) Test 11/11/16 21:19 11/12/16 00:35 11/12/16 05:30 Glucose (Fingerstick) 175 mg/dL (70-99) Hemoglobin 10.0 g/dL (12.0-15.5) 10.2 g/dL (12.0-15.5) Hematocrit 30.6 % (36.0-47.0) 30.3 % (36.0-47.0) Mean Corpuscular Hemoglobin Concent 33 g/dL (31-37) 34 g/dL (31-37) White Blood Count 8.1 x10^3/uL (4.0-11.0) Red Blood Count 3.41 x10^6/uL (3.50-5.40) Mean Corpuscular Volume 89 fL (79-100) Mean Corpuscular Hemoglobin 30 pg (25-35) Red Cell Distribution Width 17.4 % (11.5-14.5) Platelet Count 169 x10^3/uL (140-400) Sodium Level 146 mmol/L (136-145) Potassium Level 5.1 mmol/L (3.5-5.1) Chloride Level 109 mmol/L (98-107) Carbon Dioxide Level 22 mmol/L (21-32) Anion Gap 15 (6-14) Blood Urea Nitrogen 64 mg/dL (7-20) Creatinine 2.0 mg/dL (0.6-1.0) Estimated GFR (Cockcroft-Gault) 23.5 Glucose Level 206 mg/dL (70-99) Calcium Level 9.0 mg/dL (8.5-10.1) Laboratory Tests Test 11/11/16 12:00 11/11/16 14:11 11/11/16 16:36 11/11/16 19:45 Hemoglobin 9.8 g/dL (12.0-15.5) 10.1 g/dL (12.0-15.5) Hematocrit 30.0 % (36.0-47.0) 30.8 % (36.0-47.0) Mean Corpuscular Hemoglobin Concent 33 g/dL (31-37) 33 g/dL (31-37) Glucose (Fingerstick) 170 mg/dL (70-99) 150 mg/dL (70-99) Test 11/11/16 21:19 11/12/16 00:35 11/12/16 05:30 Glucose (Fingerstick) 175 mg/dL (70-99) Hemoglobin 10.0 g/dL (12.0-15.5) 10.2 g/dL (12.0-15.5) Hematocrit 30.6 % (36.0-47.0) 30.3 % (36.0-47.0) Mean Corpuscular Hemoglobin Concent 33 g/dL (31-37) 34 g/dL (31-37) White Blood Count 8.1 x10^3/uL (4.0-11.0) Red Blood Count 3.41 x10^6/uL (3.50-5.40) Mean Corpuscular Volume 89 fL (79-100) Mean Corpuscular Hemoglobin 30 pg (25-35) Red Cell Distribution Width 17.4 % (11.5-14.5) Platelet Count 169 x10^3/uL (140-400) Sodium Level 146 mmol/L (136-145) Potassium Level 5.1 mmol/L (3.5-5.1) Chloride Level 109 mmol/L (98-107) Carbon Dioxide Level 22 mmol/L (21-32) Anion Gap 15 (6-14) Blood Urea Nitrogen 64 mg/dL (7-20) Creatinine 2.0 mg/dL (0.6-1.0) Estimated GFR (Cockcroft-Gault) 23.5 Glucose Level 206 mg/dL (70-99) Calcium Level 9.0 mg/dL (8.5-10.1) Microbiology 11/07/16 Urine Culture - Final, Complete 11/07/16 Urine Culture Result 1 (AYDE) - Final, Complete Medications Current Medications Ondansetron HCl (Zofran) 4 mg PRN Q8HRS PRN IV NAUSEA/VOMITING; Start 11/07/16 at 15:15; Stop 11/08/16 at 15:14; Status DC Dextrose (Dextrose 50%-Water Syringe) 12.5 gm PRN Q15MIN PRN IV SEE COMMENTS; Start 11/07/16 at 15:15; Status Cancel Sodium Chloride 1,000 ml @ 125 mls/hr 1X ONCE IV ; Start 11/07/16 at 15:15; Stop 11/07/16 at 23:14; Status DC Sodium Chloride 1,000 ml @ 100 mls/hr 1X ONCE IV Last administered on 16:07; Start 11/07/16 at 15:15; Stop 11/08/16 at 01:14; Status DC Levetiracetam (Keppra) 500 mg BID PO Last administered on 11/10/16 20:16; Start 11/07/16 at 21:00; Stop 11/11/16 at 08:25; Status DC Atorvastatin Calcium (Lipitor) 40 mg QHS PO Last administered on 11/11/16 21: 03; Start 11/07/16 at 21:00 Acetaminophen (Tylenol) 650 mg PRN Q6HRS PRN PO MILD PAIN / TEMP Last administered on 11/10/16 17:15; Start 11/08/16 at 12:15 Albuterol Sulfate (Ventolin Neb Soln) 2.5 mg Q4H PRN NEB SHORTNESS OF BREATH; Start 11/08/16 at 12:00 Atorvastatin Calcium (Lipitor) 40 mg QHS PO ; Start 11/08/16 at 21:00; Status UNV Carvedilol (Coreg) 12.5 mg BIDWMEALS PO Last administered on 11/11/16 16:38; Start 11/08/16 at 17:00 Diltiazem HCl (Cardizem 24hr Cd) 120 mg DAILY PO ; Start 11/08/16 at 13:00; Stop 11/08/16 at 15:48; Status DC Vitamin B Complex/ Vitamin C (Taylor-Aditya) 1 tab DAILY PO Last administered on 09:01; Start 11/09/16 at 09:00 Hyoscyamine (Anaspaz) 0.125 mg PRN Q4HRS PRN PO ABD PAIN; Start 11/08/16 at 12: 00 Magnesium Hydroxide (Milk Of Magnesia) 2,400 mg DAILY PRN PO CONSTIPATION; Start 11/08/16 at 12:00 Nitroglycerin (Nitrostat) 0.4 mg PRN Q5MIN PRN SL CHEST PAIN; Start 11/08/16 at 12:00 Pantoprazole Sodium (Protonix) 40 mg DAILYAC PO Last administered on 11/10/16 09:02; Start 11/08/16 at 13:00; Stop 11/10/16 at 13:32; Status DC Polyethylene Glycol (miraLAX PACKET) 17 gm DAILY PRN PO CONSTIPATION; Start at 12:00 Tamsulosin HCl (Flomax) 0.4 mg DAILY PO Last administered on 11/10/16 09:01; Start 11/08/16 at 13:00 Tramadol HCl (Ultram) 50 mg PRN TID PRN PO PAIN Last administered on 11/11/16 21:10; Start 11/08/16 at 12:00 Venlafaxine HCl (Effexor Xr) 37.5 mg DAILY PO Last administered on 11/10/16 09 :01; Start 11/08/16 at 13:00 Gabapentin (Neurontin) 300 mg DAILY PO Last administered on 11/10/16 09:01; Start 11/08/16 at 13:00 Sodium Chloride 1,000 ml @ 75 mls/hr [id number] IV Last administered on 01:59; Start 11/08/16 at 12:30; Stop 11/09/16 at 10:13; Status DC Aspirin (Children'S Aspirin) 81 mg DAILYWBKFT PO Last administered on 08:53; Start 11/08/16 at 18:00 Dextrose (Dextrose 50%-Water Syringe) 12.5 gm PRN Q15MIN PRN IV SEE COMMENTS; Start 11/09/16 at 13:00; Status Cancel Sodium Chloride 1,000 ml @ 50 mls/hr Q20H IV Last administered on 11/09/16 17 :54; Start 11/09/16 at 18:00; Stop 11/10/16 at 10:18; Status DC Insulin Aspart (NovoLOG) 0-7 UNITS TIDWMEALS SQ Last administered on 11/10/16 17:20; Start 11/10/16 at 08:00 Dextrose (Dextrose 50%-Water Syringe) 12.5 gm PRN Q15MIN PRN IV SEE COMMENTS; Start 11/09/16 at 18:00 Pantoprazole Sodium (Protonix Vial) 40 mg BID IVP Last administered on 08:36; Start 11/09/16 at 21:00 Levetiracetam 500 mg/Sodium Chloride 105 ml @ 420 mls/hr Q12HR IV Last administered on 11/12/16 08:26; Start 11/11/16 at 09:00 Labetalol HCl (Normodyne) 10 mg Q4H PRN IVP HYPERTENSION, SEE COMMENTS Last administered on 11/11/16 19:08; Start 11/11/16 at 09:45 Active Scripts Active Reported Novolog (Insulin Aspart) 100 Unit/1 Ml Cartridge 12 Unit SQ BIDACLD Novolog (Insulin Aspart) 100 Unit/1 Ml Cartridge 10 Unit SQ DAILYWBKFT Levemir (Insulin Detemir) 100 Unit/1 Ml Vial 15 Unit SQ HS Tramadol Hcl 50 Mg Tablet 1 Tab PO PRN TID Acetaminophen 500 Mg Tablet 650 Mg PO PRN Q6HRS Keppra (Levetiracetam) 500 Mg Tablet 1 Tab PO BID Coreg (Carvedilol) 12.5 Mg Tablet 1 Tab PO BID Venlafaxine Hcl Er (Venlafaxine Hcl) 37.5 Mg Cap.er.24h 1 Cap PO DAILY Hyoscyamine Sulfate 0.125 Mg Tab.rapdis 0.125 Mg SL PRN Q4HRS Miralax (Polyethylene Glycol 3350) 17 Gm Powd.pack 1 Packet PO DAILY PRN Lasix (Furosemide) 40 Mg Tablet 40 Mg PO BID Tamsulosin Hcl 0.4 Mg Cap.er.24h 1 Cap PO DAILY Gabapentin 300 Mg Capsule 300 Mg PO DAILY Diltiazem 24HR Cd (Diltiazem Hcl) 120 Mg Cap.er.24h 1 Cap PO DAILY Atorvastatin Calcium 40 Mg Tablet 1 Tab PO DAILY Albuterol Sulfate Neb Soln (Albuterol Sulfate) 2.5 Mg/3 Ml Vial.neb 2.5 Mg NEB Milk Of Magnesia (Magnesium Hydroxide) 400 Mg/5 Ml Oral.susp 400 Mg PO Protonix (Pantoprazole Sodium) 40 Mg Tablet.dr 40 Mg PO DAILY Nitrostat (Nitroglycerin) 0.4 Mg Tab.subl 0.4 Mg SL PRN Q5MIN PRN Nephro-Aditya Tablet (Folic Acid/Vitamin B Comp W-C) 0.8 Mg Tablet 0.8 Mg PO Vitals/I & O Vital Sign - Last 24 Hours 11/11/16 11/11/16 11/11/16 11/11/16 09:00 10:00 10:11 11:00 Pulse 100 104 104 111 Resp 19 B/P (MAP) 161/91 (114) 146/74 (98) 146/74 156/87 (110) Pulse Ox 99 99 99 O2 Delivery Nasal Cannula Nasal Cannula Nasal Cannula O2 Flow Rate 2.0 2.0 2.0 11/11/16 11/11/16 11/11/16 11/11/16 12:00 12:00 13:00 14:00 Temp 98.1 98.1 Pulse 106 102 124 Resp B/P (MAP) 159/93 (115) 154/82 (106) 167/93 (117) Pulse Ox 99 96 93 O2 Delivery Nasal Cannula Nasal Cannula Nasal Cannula Nasal Cannula O2 Flow Rate 2.0 2.0 2.0 2.0 11/11/16 11/11/16 11/11/16 11/11/16 14:19 15:00 16:00 16:00 Temp 98.2 98.2 Pulse 121 103 106 Resp B/P (MAP) 165/92 151/79 (103) 154/83 (106) Pulse Ox 97 96 O2 Delivery Nasal Cannula Nasal Cannula Nasal Cannula O2 Flow Rate 2.0 2.0 2.0 11/11/16 11/11/16 11/11/16 11/11/16 16:38 17:00 18:00 19:00 Temp 98.1 98.1 Pulse 132 130 125 106 Resp 19 B/P (MAP) 154/83 154/83 (106) 157/91 (113) 148/85 (106) Pulse Ox 96 95 95 O2 Delivery Nasal Cannula Nasal Cannula Nasal Cannula O2 Flow Rate 2.0 2.0 2.0 11/11/16 11/11/16 11/11/16 11/11/16 19:08 20:00 20:00 21:00 Pulse 128 121 119 Resp B/P (MAP) 168/94 163/99 (120) 153/99 (117) Pulse Ox 95 98 O2 Delivery Nasal Cannula Nasal Cannula Nasal Cannula O2 Flow Rate 2.0 2.0 2.0 11/11/16 11/11/16 11/11/16 11/12/16 21:10 22:00 23:00 00:00 Pulse 112 120 Resp B/P (MAP) 145/86 (105) 149/88 (108) Pulse Ox 95 98 98 O2 Delivery Nasal Cannula Nasal Cannula Nasal Cannula O2 Flow Rate 2.0 2.0 2.0 2.0 11/12/16 11/12/16 11/12/16 11/12/16 00:00 01:00 02:00 03:00 Temp 98.2 98.2 Pulse 118 120 112 124 Resp B/P (MAP) 145/87 (106) 160/88 (112) 157/99 (118) 158/99 (118) Pulse Ox 98 98 98 98 O2 Delivery Nasal Cannula Nasal Cannula Nasal Cannula Nasal Cannula O2 Flow Rate 2.0 2.0 2.0 2.0 11/12/16 11/12/16 11/12/16 11/12/16 04:00 04:00 05:00 05:00 Temp 98.4 98.4 Pulse 122 112 Resp B/P (MAP) 163/94 (117) 160/94 (116) Pulse Ox 98 98 O2 Delivery Nasal Cannula Nasal Cannula Nasal Cannula Nasal Cannula O2 Flow Rate 2.0 2.0 2.0 11/12/16 06:00 Pulse 112 Resp 26 B/P (MAP) 160/86 (110) Pulse Ox 98 O2 Delivery Nasal Cannula O2 Flow Rate 2.0 Intake and Output 11/11/16 11/11/16 11/12/16 15:00 23:00 07:00 Intake Total 0 ml 0 ml 0 ml Output Total 570 ml 355 ml 222 ml Balance -570 ml -355 ml -222 ml Images EEG on 11/09: encephalopathy. MRI on 11/09: No acute CVA. RAUL WAY MD Nov 12, 2016 08:48
[2016-11-12] MEDS: FOLIC/VIT B COMP W-C (RENAL) TABLET. PO SCH (09:00)
[2016-11-12] MEDS: VENLAFAXINE XR 37.5 MG CAP.ER.24H. PO SCH (09:00)
[2016-11-12] MEDS: GABAPENTIN 300 MG CAPSULE. PO SCH (09:00)
[2016-11-12] MEDS: TAMSULOSIN 0.4 MG CAP.ER.24H. PO SCH (09:00)
[2016-11-12] MEDS: LABETALOL 20 MG/4 ML DISP.SYRIN. IVP PRN (09:16)
[2016-11-12 09:26] LABS: VITAMIN-B12 940 pg/mL (247-911)
--- NOTE | 2016-11-12 09:57 | PDOC2 ---
LISETTE POTTS DIRECTOR ENGINEERING 11/12/16 0957: CONSULT Date of Consult Date of Consult DATE: 11/12/16 TIME: 09:47 Reason for Consult Reason for Consult: gi bleed Referring Physician Referring Physician: DR Carson Identification/Chief Complaint Chief Complaint weakness Problems: Source Source: Caregiver, Chart review History of Present Illness Reason for Visit: Family not present, patient does not appropriately answer questions/provide any significant history Admitted from custodial for altered mental status and weakness, she was found to be in renal failure. She had bloody stools and hgb drop requiring ICU monitoring and transfusions. Bleeding scan was negative, and no acute CT findings. Nursing staff reports that family is not interested in any endoscopy at this time Last BM yesterday, dark per nursing EGD and colonoscopy last year with dr portillo findings of gastritis, duodenitis, and Small rectal polyp. Past Medical History Cardiovascular: CHF, HTN, Hyperlipidemia Pulmonary: Asthma, COPD CENTRAL NERVOUS SYSTEM: CVA, TIA GI: GERD Heme/Onc: No pertinent hx Hepatobiliary: No pertinent hx Psych: No pertinent hx Musculoskeletal: Other Rheumatologic: Rheumatoid arthritis Infectious disease: Other Renal/: Chronic renal insuff, Other Endocrine: Diabetes Past Surgical History Past Surgical History: Cholecystectomy, CABG, Cataract Removal, Hysterectomy, Other Family History Family History: No Significant Social History ALCOHOL: none Drugs: None Lives: Assisted Current Problem List Problem List Problems Medical Problems: (1) Acute on chronic renal failure Status: Acute (2) Syncope Status: Acute (3) Weakness generalized Status: Acute Current Medications Current Medications Current Medications Ondansetron HCl (Zofran) 4 mg PRN Q8HRS PRN IV NAUSEA/VOMITING; Start 11/07/16 at 15:15; Stop 11/08/16 at 15:14; Status DC Dextrose (Dextrose 50%-Water Syringe) 12.5 gm PRN Q15MIN PRN IV SEE COMMENTS; Start 11/07/16 at 15:15; Status Cancel Sodium Chloride 1,000 ml @ 125 mls/hr 1X ONCE IV ; Start 11/07/16 at 15:15; Stop 11/07/16 at 23:14; Status DC Sodium Chloride 1,000 ml @ 100 mls/hr 1X ONCE IV Last administered on t 16:07; Start 11/07/16 at 15:15; Stop 11/08/16 at 01:14; Status DC Levetiracetam (Keppra) 500 mg BID PO Last administered on 11/10/16 20:16; Start 11/07/16 at 21:00; Stop 11/11/16 at 08:25; Status DC Atorvastatin Calcium (Lipitor) 40 mg QHS PO Last administered on 11/11/16 21: 03; Start 11/07/16 at 21:00 Acetaminophen (Tylenol) 650 mg PRN Q6HRS PRN PO MILD PAIN / TEMP Last administered on 11/10/16 17:15; Start 11/08/16 at 12:15 Albuterol Sulfate (Ventolin Neb Soln) 2.5 mg Q4H PRN NEB SHORTNESS OF BREATH; Start 11/08/16 at 12:00 Atorvastatin Calcium (Lipitor) 40 mg QHS PO ; Start 11/08/16 at 21:00; Status UNV Carvedilol (Coreg) 12.5 mg BIDWMEALS PO Last administered on 11/11/16 16:38; Start 11/08/16 at 17:00 Diltiazem HCl (Cardizem 24hr Cd) 120 mg DAILY PO ; Start 11/08/16 at 13:00; Stop 11/08/16 at 15:48; Status DC Vitamin B Complex/ Vitamin C (Taylor-Aditya) 1 tab DAILY PO Last administered on 09:01; Start 11/09/16 at 09:00 Hyoscyamine (Anaspaz) 0.125 mg PRN Q4HRS PRN PO ABD PAIN; Start 11/08/16 at 12: 00 Magnesium Hydroxide (Milk Of Magnesia) 2,400 mg DAILY PRN PO CONSTIPATION; Start 11/08/16 at 12:00 Nitroglycerin (Nitrostat) 0.4 mg PRN Q5MIN PRN SL CHEST PAIN; Start 11/08/16 at 12:00 Pantoprazole Sodium (Protonix) 40 mg DAILYAC PO Last administered on 11/10/16 09:02; Start 11/08/16 at 13:00; Stop 11/10/16 at 13:32; Status DC Polyethylene Glycol (miraLAX PACKET) 17 gm DAILY PRN PO CONSTIPATION; Start at 12:00 Tamsulosin HCl (Flomax) 0.4 mg DAILY PO Last administered on 11/10/16 09:01; Start 11/08/16 at 13:00 Tramadol HCl (Ultram) 50 mg PRN TID PRN PO PAIN Last administered on 11/11/16 21:10; Start 11/08/16 at 12:00 Venlafaxine HCl (Effexor Xr) 37.5 mg DAILY PO Last administered on 11/10/16 09 :01; Start 11/08/16 at 13:00 Gabapentin (Neurontin) 300 mg DAILY PO Last administered on 11/10/16 09:01; Start 11/08/16 at 13:00 Sodium Chloride 1,000 ml @ 75 mls/hr [id number] IV Last administered on 01:59; Start 11/08/16 at 12:30; Stop 11/09/16 at 10:13; Status DC Aspirin (Children'S Aspirin) 81 mg DAILYWBKFT PO Last administered on 08:53; Start 11/08/16 at 18:00 Dextrose (Dextrose 50%-Water Syringe) 12.5 gm PRN Q15MIN PRN IV SEE COMMENTS; Start 11/09/16 at 13:00; Status Cancel Sodium Chloride 1,000 ml @ 50 mls/hr Q20H IV Last administered on 11/09/16 17 :54; Start 11/09/16 at 18:00; Stop 11/10/16 at 10:18; Status DC Insulin Aspart (NovoLOG) 0-7 UNITS TIDWMEALS SQ Last administered on 11/10/16 17:20; Start 11/10/16 at 08:00 Dextrose (Dextrose 50%-Water Syringe) 12.5 gm PRN Q15MIN PRN IV SEE COMMENTS; Start 11/09/16 at 18:00 Pantoprazole Sodium (Protonix Vial) 40 mg BID IVP Last administered on 08:36; Start 11/09/16 at 21:00 Levetiracetam 500 mg/Sodium Chloride 105 ml @ 420 mls/hr Q12HR IV Last administered on 11/12/16 08:26; Start 11/11/16 at 09:00 Labetalol HCl (Normodyne) 10 mg Q4H PRN IVP HYPERTENSION, SEE COMMENTS Last administered on 11/12/16t 09:16; Start 11/11/16 at 09:45 Active Scripts Active Reported Novolog (Insulin Aspart) 100 Unit/1 Ml Cartridge 12 Unit SQ BIDACLD Novolog (Insulin Aspart) 100 Unit/1 Ml Cartridge 10 Unit SQ DAILYWBKFT Levemir (Insulin Detemir) 100 Unit/1 Ml Vial 15 Unit SQ HS Tramadol Hcl 50 Mg Tablet 1 Tab PO PRN TID Acetaminophen 500 Mg Tablet 650 Mg PO PRN Q6HRS Keppra (Levetiracetam) 500 Mg Tablet 1 Tab PO BID Coreg (Carvedilol) 12.5 Mg Tablet 1 Tab PO BID Venlafaxine Hcl Er (Venlafaxine Hcl) 37.5 Mg Cap.er.24h 1 Cap PO DAILY Hyoscyamine Sulfate 0.125 Mg Tab.rapdis 0.125 Mg SL PRN Q4HRS Miralax (Polyethylene Glycol 3350) 17 Gm Powd.pack 1 Packet PO DAILY PRN Lasix (Furosemide) 40 Mg Tablet 40 Mg PO BID Tamsulosin Hcl 0.4 Mg Cap.er.24h 1 Cap PO DAILY Gabapentin 300 Mg Capsule 300 Mg PO DAILY Diltiazem 24HR Cd (Diltiazem Hcl) 120 Mg Cap.er.24h 1 Cap PO DAILY Atorvastatin Calcium 40 Mg Tablet 1 Tab PO DAILY Albuterol Sulfate Neb Soln (Albuterol Sulfate) 2.5 Mg/3 Ml Vial.neb 2.5 Mg NEB Milk Of Magnesia (Magnesium Hydroxide) 400 Mg/5 Ml Oral.susp 400 Mg PO Protonix (Pantoprazole Sodium) 40 Mg Tablet.dr 40 Mg PO DAILY Nitrostat (Nitroglycerin) 0.4 Mg Tab.subl 0.4 Mg SL PRN Q5MIN PRN Nephro-Aditya Tablet (Folic Acid/Vitamin B Comp W-C) 0.8 Mg Tablet 0.8 Mg PO Allergies Allergies: Coded Allergies: Penicillins (Verified Allergy, Intermediate, Hives, 01/12/16) Tolerates rocephin iodine (Verified Allergy, Intermediate, Hives, 01/12/16) ROS Review of System unable to obtain due to mental status Physical Exam General: Alert, No acute distress, Other (no oriented to place/time) HEENT: PERRLA, Mucous membr. moist/pink Lungs: Other (diminished bilat) Heart: Other (tachy s1 s2) Abdomen: Soft, No tenderness, Other (ND) Extremities: No clubbing, No cyanosis Skin: No rashes, No significant lesion Neuro: Other (weakness to extremities, speech not clear) Psych/Mental Status: Other (altered mental status ) Vitals VITALS Vital Signs Date Time Temp Pulse Resp B/P (MAP) Pulse Ox O2 Delivery O2 Flow Rate FiO2 11/12/16 09:16 128 165/99 11/12/16 06:00 26 98 Nasal Cannula 2.0 11/12/16 04:00 98.4 98.4 Labs Labs Laboratory Tests Test 11/10/16 11:35 11/10/16 11:50 11/10/16 16:43 11/10/16 19:22 Glucose (Fingerstick) 157 mg/dL (70-99) 164 mg/dL (70-99) 228 mg/dL (70-99) Hemoglobin 8.4 g/dL (12.0-15.5) Hematocrit 25.8 % (36.0-47.0) Mean Corpuscular Hemoglobin Concent 33 g/dL (31-37) Test 11/10/16 20:00 11/11/16 00:50 11/11/16 06:30 11/11/16 08:33 Hemoglobin 8.2 g/dL (12.0-15.5) 5.6 g/dL (12.0-15.5) 10.2 g/dL (12.0-15.5) Hematocrit 25.1 % (36.0-47.0) 17.4 % (36.0-47.0) 31.7 % (36.0-47.0) Mean Corpuscular Hemoglobin Concent 33 g/dL (31-37) 32 g/dL (31-37) 32 g/dL (31-37) Sodium Level 143 mmol/L (136-145) Potassium Level 4.3 mmol/L (3.5-5.1) Chloride Level 107 mmol/L (98-107) Carbon Dioxide Level 27 mmol/L (21-32) Anion Gap 9 (6-14) Blood Urea Nitrogen 65 mg/dL (7-20) Creatinine 1.9 mg/dL (0.6-1.0) Estimated GFR (Cockcroft-Gault) 24.9 Glucose Level 176 mg/dL (70-99) Calcium Level 9.1 mg/dL (8.5-10.1) Ferritin 284 ng/mL (8-252) Vitamin B12 Level 1143 pg/mL (247-911) Glucose (Fingerstick) 159 mg/dL (70-99) Test 11/11/16 12:00 11/11/16 14:11 11/11/16 16:36 11/11/16 19:45 Hemoglobin 9.8 g/dL (12.0-15.5) 10.1 g/dL (12.0-15.5) Hematocrit 30.0 % (36.0-47.0) 30.8 % (36.0-47.0) Mean Corpuscular Hemoglobin Concent 33 g/dL (31-37) 33 g/dL (31-37) Glucose (Fingerstick) 170 mg/dL (70-99) 150 mg/dL (70-99) Test 11/11/16 21:19 11/12/16 00:35 11/12/16 05:30 11/12/16 08:44 Glucose (Fingerstick) 175 mg/dL (70-99) 198 mg/dL (70-99) Hemoglobin 10.0 g/dL (12.0-15.5) 10.2 g/dL (12.0-15.5) Hematocrit 30.6 % (36.0-47.0) 30.3 % (36.0-47.0) Mean Corpuscular Hemoglobin Concent 33 g/dL (31-37) 34 g/dL (31-37) White Blood Count 8.1 x10^3/uL (4.0-11.0) Red Blood Count 3.41 x10^6/uL (3.50-5.40) Mean Corpuscular Volume 89 fL (79-100) Mean Corpuscular Hemoglobin 30 pg (25-35) Red Cell Distribution Width 17.4 % (11.5-14.5) Platelet Count 169 x10^3/uL (140-400) Sodium Level 146 mmol/L (136-145) Potassium Level 5.1 mmol/L (3.5-5.1) Chloride Level 109 mmol/L (98-107) Carbon Dioxide Level 22 mmol/L (21-32) Anion Gap 15 (6-14) Blood Urea Nitrogen 64 mg/dL (7-20) Creatinine 2.0 mg/dL (0.6-1.0) Estimated GFR (Cockcroft-Gault) 23.5 Glucose Level 206 mg/dL (70-99) Calcium Level 9.0 mg/dL (8.5-10.1) Laboratory Tests Test 11/11/16 12:00 11/11/16 14:11 11/11/16 16:36 11/11/16 19:45 Hemoglobin 9.8 g/dL (12.0-15.5) 10.1 g/dL (12.0-15.5) Hematocrit 30.0 % (36.0-47.0) 30.8 % (36.0-47.0) Mean Corpuscular Hemoglobin Concent 33 g/dL (31-37) 33 g/dL (31-37) Glucose (Fingerstick) 170 mg/dL (70-99) 150 mg/dL (70-99) Test 11/11/16 21:19 11/12/16 00:35 11/12/16 05:30 11/12/16 08:44 Glucose (Fingerstick) 175 mg/dL (70-99) 198 mg/dL (70-99) Hemoglobin 10.0 g/dL (12.0-15.5) 10.2 g/dL (12.0-15.5) Hematocrit 30.6 % (36.0-47.0) 30.3 % (36.0-47.0) Mean Corpuscular Hemoglobin Concent 33 g/dL (31-37) 34 g/dL (31-37) White Blood Count 8.1 x10^3/uL (4.0-11.0) Red Blood Count 3.41 x10^6/uL (3.50-5.40) Mean Corpuscular Volume 89 fL (79-100) Mean Corpuscular Hemoglobin 30 pg (25-35) Red Cell Distribution Width 17.4 % (11.5-14.5) Platelet Count 169 x10^3/uL (140-400) Sodium Level 146 mmol/L (136-145) Potassium Level 5.1 mmol/L (3.5-5.1) Chloride Level 109 mmol/L (98-107) Carbon Dioxide Level 22 mmol/L (21-32) Anion Gap 15 (6-14) Blood Urea Nitrogen 64 mg/dL (7-20) Creatinine 2.0 mg/dL (0.6-1.0) Estimated GFR (Cockcroft-Gault) 23.5 Glucose Level 206 mg/dL (70-99) Calcium Level 9.0 mg/dL (8.5-10.1) Assessment/Plan Assessment/Plan GI bleed multiple comorbidities including, DM, CHF, CVA, CKD hgb improved with transfusions, on PPI bleeding scan negative per nursing family not wanting any endoscopy supportive care PPI, ICU, serial labs, transfusional support will review with LEROY Sinha MD 11/13/16 1142: CONSULT Allergies Allergies: Coded Allergies: Penicillins (Verified Allergy, Intermediate, Hives, 01/12/16) Tolerates rocephin iodine (Verified Allergy, Intermediate, Hives, 01/12/16) Assessment/Plan Assessment/Plan Agree with Michelle's assessment and plan. LSIETTE POTTS APRN Nov 12, 2016 09:57 LEROY PORTILLO MD Nov 13, 2016 11:42
[2016-11-12 10:12] LABS: FOLATE > 20.00 ng/ml (3.2-20.0)
--- NOTE | 2016-11-12 10:45 | PN ---
DATE: 11/11/2016 SUBJECTIVE: The patient has apparently had another episode of fresh blood per rectum last night and her H and H dropped down to 5.6 and 17.4 and was given 1 unit of packed RBCs and she was transferred to ICU for close monitoring. The patient herself felt somewhat drowsy, but arousable. Denied any nausea or vomiting. Denied any abdominal pain. Her repeat H and H this morning was 10 and 31. Discussed doubt about the values of midnight last night seemed to be probably diluted as it is unlikely for one unit of packed RBCs to raise the H and H from 5.6 and 17.4 to 10 and 31 respectively. The patient is in fact hemodynamically stable and if anything she is hypertensive and her BUN is down instead of rising up as her BUN on admission was 91 and this morning it was only 65 ____ what to expect in somebody who is having GI bleeds, especially if it is from upper GI. PHYSICAL EXAMINATION: GENERAL: In any case, when I examined her this morning, she was resting slightly propped up comfortably, in no apparent distress. She was pale, no jaundice, cyanosis, or thyromegaly. No jugular venous distention. No limb edema. VITAL SIGNS: Her heart rate was 100, blood pressure was 161/91, temperature was 97.7, respiratory rate 21 and oxygen saturation was 99% on 2 liters of oxygen. HEAD, EYES, EARS, NOSE AND THROAT: Normocephalic, atraumatic. NECK: Supple. HEART: Showed normal first and second heart sounds. No gallop, rub or murmur. CHEST: Clear to auscultation. No crepitation or rhonchi. ABDOMEN: Distended, soft, nontender. No guarding or rigidity. No organomegaly. Hernial orifices intact. Bowel sounds normal. NEUROLOGIC: She was sleepy, but arousable. She opens eyes and responds appropriately. Cranial nerves intact. She moves upper extremities to much greater extent than lower extremities. She is mostly bed-bound and chair-bound. Her intake over the last 24 hours was 1000, output 720. LABORATORY DATA: As of this morning, her serum sodium was 143, potassium 4.3, chloride 107, bicarbonate 27, anion gap of 9, BUN 65, creatinine 1.9. Her estimated GFR was 25 mL per minute. Glucose 176, calcium was 9.1 and serum ferritin was 284 mcg/mL. Her H and H this morning was 10.2 and 31.7 from 5.6 and 17.4, which is very doubtful. ASSESSMENT: 1. Encephalopathy, probably . The patient continued to be somewhat lethargic, drowsable. Her blood sugar, however, has been consistently within normal range apart from initial low blood sugar was mostly more than 100. 2. Ecrlf-ow-uvtxcri kidney injury, resolving. Her BUN has dropped down from 91-65 and creatinine came down from 3-1.9. 3. Lower gastrointestinal bleed. Source is obviously unclear. It seemed that she was seen for the same problem last year at [facility] and had upper and lower GI endoscopy and according to the family, no source of bleeding was found. She has had GI bleeding scan, which was unremarkable. PLAN: To continue with holding her aspirin. Continue with clear liquid diet for now, continue with IV fluid at present rate. Continue with insulin sliding scale. I stopped all her insulin. We held her aspirin. Start her on labetalol to control her blood sugar and will monitor her H and H every 6 hours and transfuse as needed. OLI TERRY MD DR: HOWARD/yolanda JOB#: [id number] / [id number]
--- NOTE | 2016-11-12 10:49 | RAD ---
Indication: Shortness of air. Time of exam 10:41 AM Correlation is made with prior study from 11/07/2016. The heart is enlarged but stable. There are changes of median sternotomy and CABG. There is some mild subsegmental atelectasis right midlung. There also appears to be some atelectasis in the left base. Otherwise the lungs are clear. There is some trace left pleural effusion. There is no pneumothorax. Impression: Cardiomegaly and status post CABG with subsegmental atelectasis bilaterally as well as probable small left effusion.
--- NOTE | 2016-11-12 10:53 | EKG ---
[facility] [address] [place] [address] Test Date: 2016-11-12 Test Time: 10:51:29 Pat Name: DELICIA GREENE Department: Room: 102 1 Gender: F Counter Server: WIN : [id number] Requested By: OLI TERRY Order Number: [id number] Reading MD: Kym Hernandez Measurements Intervals Amery Rate: 124 P: MD: QRS: -4 QRSD: 88 T: 154 QT: 344 QTc: 499 Interpretive Statements ATRIAL FIBRILLATION LEFTWARD AXIS ST & T ABNORMALITY, CONSIDER HIGH LATERAL ISCHEMIA ABNORMAL ECG Electronically Signed On 11-12-2016 21:00:46 CDT by Kym Hernandez
[2016-11-12] MEDS ORDERED: dilTIAZem IV PUSH 25 MG/5 ML VIAL IVP ONE (11:00)
--- NOTE | 2016-11-12 11:34 | PDOC ---
Objective: Objective: Dark stool yesterday per staff, none today. Vital Signs: Vital Signs Date Time Temp Pulse Resp B/P (MAP) Pulse Ox O2 Delivery O2 Flow Rate FiO2 11/12/16 11:06 122 149/96 11/12/16 06:00 26 98 Nasal Cannula 2.0 11/12/16 04:00 98.4 98.4 Labs: Laboratory Tests Test 11/11/16 14:11 11/11/16 16:36 11/11/16 21:19 11/12/16 08:44 Glucose (Fingerstick) 170 mg/dL (70-99) 150 mg/dL (70-99) 175 mg/dL (70-99) 198 mg/dL (70-99) Imaging: CT A/P w/o contrast IMPRESSION: 1. Limited evaluation of the colon due to lack of distention. Cannot exclude mild wall thickening of the ascending colon. There is mild stranding induration. Considerations include focal colitis, pseudothickening, or neoplasm. 2. Moderate bilateral pleural effusions. 3. Mild perihepatic free fluid. GI Bleed Scan IMPRESSION: No scintigraphic evidence of active GI hemorrhage. PE: GEN: NAD LUNGS: clear HEART: tachy, irregular ABD: NABS, S/ND/NT NEURO/PSYCH: grunts A/P: Bloody stool, anemia -EGD and colon w/ Dr. Ramírez last year: gastritis, duodenitis, rectal polyp -Hgb stable after transfusions, on IV PPI -no recurrent bleeding RAMY, AMS -- Family declines endoscopy, continue same per GI. BRAULIO PEREZ Nov 12, 2016 11:33
--- NOTE | 2016-11-12 12:06 | PDOC2 ---
CARDIAC CONSULT DATE OF CONSULT Date of Consult DATE: 11/12/16 TIME: 11:44 REASON FOR CONSULT Reason for Consult: AFIB RVR REFERRING PHYSICIAN Referring Physician: Amanuel SOURCE Source: Caregiver (daughter), Chart review, Patient HISTORY OF PRESENT ILLNESS HISTORY OF PRESENT ILLNESS This is an 89 yo female admitted for noted weakness, possible passing out while on a lift, and changes in mentation. Upon further testing she has been noted with suspicion of GI bleed with noted dark stools, GI bleed scan negative but Hgb was low requiring blood transfusion. Pt came from [facility]. She is positive for chronic AFIB and in the last 1-2 days her HR has increased prompting this consult. At this time she does not have any NGT hence no PO meds has not been given due to her diminished mental state. She typically takes cardizem and coreg for rate control and it appears eliquis was given in the past for stroke prevention but none noted on med list. It appears to be not a candidate for any OAC/NOAC currently given her advanced age, possible previous hx of GI bleed and falls risk and presently acute anemia. Multiple consultants on board. Prior to the changes in her mentation, there has been no reports of SOA, chest pain. Currently she is not in pain and no SOA and aware that she is in the hospital. PAST MEDICAL HISTORY Past Medical History Cardiovascular: AFIB, CAD (with CABG about 25 - 30 years ago), CHF (diastolic) , HTN, Hyperlipidemia Pulmonary: Asthma, COPD CENTRAL NERVOUS SYSTEM: TIA, CVA GI: GERD, GI bleed? Heme/Onc: No pertinent hx Hepatobiliary: No pertinent hx Musculoskeletal: Osteoarthritis, Other Rheumatologic: No pertinent hx Infectious disease: No pertinent hx ENT: No pertinent hx Renal/: Chronic renal insuff, Other (hemodialysis 10 years ago) Endocrine: Diabetes Dermatology: No pertinent hx PAST SURGICAL HISTORY Past Surgical History Cholecystectomy, CABG, Tonsillectomy, Hysterectomy FAMILY HISTORY Family History noncontributory SOCIAL HISTORY Smoke: No ALCOHOL: none Drugs: None Lives: [facility] CURRENT MEDICATIONS CURRENT MEDICATIONS Current Medications Medications (Trade) Dose Ordered Sig/Lily Route PRN Reason Start Time Stop Time Status Last Admin Dose Admin Diltiazem HCl 125 mg/Dextrose 125 ml @ 0 mls/hr CONT PRN IV SEE I/O RECORD 11/12/16 10:45 11/12/16 11:19 Diltiazem HCl (Cardizem) 10 mg 1X ONCE IVP 11/12/16 11:00 11/12/16 11:01 DC 11/12/16 11:06 ALLERGIES ALLERGIES: Coded Allergies: Penicillins (Verified Allergy, Intermediate, Hives, 01/12/16) Tolerates rocephin iodine (Verified Allergy, Intermediate, Hives, 01/12/16) ROS Review of System unreliable due to mentation, poor historian PHYSICAL EXAM General: Alert, Cooperative, No acute distress, Other (Ox2) HEENT: Atraumatic, Mucous membr. moist/pink Lungs: Other (basilar crackles) Heart: Normal S1, Normal S2, Other (AFIB; 2/6 systolic murmur to LLS border) Abdomen: Soft, No tenderness Extremities: No cyanosis, Other (1+ bilateral LE pitting edema) Skin: No breakdown, Other (l3eft heel ulcer) Neuro: Normal speech, Sensation intact Psych/Mental Status: Mood NL MUSCULOSKELETAL: Osteoarthritic changes both hands VITALS VITALS Vital Signs Date Time Temp Pulse Resp B/P (MAP) Pulse Ox O2 Delivery O2 Flow Rate FiO2 11/12/16 11:06 122 149/96 11/12/16 06:00 26 98 Nasal Cannula 2.0 11/12/16 04:00 98.4 98.4 LABS Lab: Laboratory Tests Test 11/11/16 12:00 11/11/16 14:11 11/11/16 16:36 11/11/16 19:45 Hemoglobin 9.8 g/dL (12.0-15.5) 10.1 g/dL (12.0-15.5) Hematocrit 30.0 % (36.0-47.0) 30.8 % (36.0-47.0) Mean Corpuscular Hemoglobin Concent 33 g/dL (31-37) 33 g/dL (31-37) Glucose (Fingerstick) 170 mg/dL (70-99) 150 mg/dL (70-99) Test 11/11/16 21:19 11/12/16 00:35 11/12/16 05:30 11/12/16 08:44 Glucose (Fingerstick) 175 mg/dL (70-99) 198 mg/dL (70-99) Hemoglobin 10.0 g/dL (12.0-15.5) 10.2 g/dL (12.0-15.5) Hematocrit 30.6 % (36.0-47.0) 30.3 % (36.0-47.0) Mean Corpuscular Hemoglobin Concent 33 g/dL (31-37) 34 g/dL (31-37) White Blood Count 8.1 x10^3/uL (4.0-11.0) Red Blood Count 3.41 x10^6/uL (3.50-5.40) Mean Corpuscular Volume 89 fL (79-100) Mean Corpuscular Hemoglobin 30 pg (25-35) Red Cell Distribution Width 17.4 % (11.5-14.5) Platelet Count 169 x10^3/uL (140-400) Sodium Level 146 mmol/L (136-145) Potassium Level 5.1 mmol/L (3.5-5.1) Chloride Level 109 mmol/L (98-107) Carbon Dioxide Level 22 mmol/L (21-32) Anion Gap 15 (6-14) Blood Urea Nitrogen 64 mg/dL (7-20) Creatinine 2.0 mg/dL (0.6-1.0) Estimated GFR (Cockcroft-Gault) 23.5 Glucose Level 206 mg/dL (70-99) Calcium Level 9.0 mg/dL (8.5-10.1) ECHOCARDIOGRAM ECHOCARDIOGRAM <Conclusion> The left ventricle is normal size. Left ventricular systolic function is normal. LV ejection fraction is 55-60%. There is no significant aortic valvular stenosis. Doppler and Color Flow revealed no significant aortic regurgitation. Doppler and Color Flow revealed mild mitral regurgitation. Doppler and Color Flow revealed moderate tricuspid regurgitation. The PA pressure was estimated at greater than 50 mmHg. There is no evidence of significant pericardial effusion. DATE: 12/18/13 3026 ASSESSMENT/PLAN ASSESSMENT/PLAN 1. AFIB RVR: chronic by hx. 2. RAMY on CKD3-4: prerenal. 3. Metabolic encephalopathy: mentation improving 4. Acute anemia: GI bleed?, unclear etiology 5. CAD: remote CABG. stable 6. Hx of TIA/CVA 7. DM2 8. Chronic diastolic CHF: appears to be compensated at this time. Recommendations 1. Cardizem bolus/drip for now. Will switch to Cardizem CD and resume coreg once po allowed. 2. Discussed significantly with daughter and would remain with conservative measures. 3. Start on IVF since she failed her swallow study. 4. Possible rectal bleed per GI. Will resume po 81 ECASA when po is allowed for stroke prevention Although high risk for stroke, bleeding risk is high as well with associated comorbid conditions as above including advanced age. Discussed with daughter significantly and would like to continue with ASA. No NOAC/OAC. Problems: MAIA LONDONO APRN Nov 12, 2016 12:06
[2016-11-12] MEDS: IV DEXTROSE 5 %-0.45 % NACL 1,000 ML IV SCH (13:39)
--- NOTE | 2016-11-12 14:50 | CARD ---
APPROVED REPORT EXAM: Two-dimensional and M-mode echocardiogram with Doppler and color Doppler. Other Information Quality : GoodHR: 92bpm Rhythm : Atrial Fibrillation INDICATION Atrial Fibrillation 2D DIMENSIONS RVDd3.3 (2.9-3.5cm)Left Atrium(2D)4.8 (1.6-4.0cm) IVSd1.3 (0.7-1.1cm)Aortic Root(2D)2.6 (2.0-3.7cm) LVDd4.9 (3.9-5.9cm)LVOT Diameter2.0 (1.8-2.4cm) PWd1.1 (0.7-1.1cm)LVDs3.8 (2.5-4.0cm) FS (%) 21.8 %SV49.8 ml Aortic Valve AoV Peak Clifford.123.0cm/sAoV VTI16.5cm AO Peak GR.6.1mmHgLVOT Peak Clifford.89.0cm/s AO Mean GR.3mmHgAVA (VMAX)2.25cm2 Mitral Valve MV E Peak Gr.7mmHgMV E Mean Gr.3mmHg Pulmonary Valve PV Peak Hmdwlodd88.1cm/s Tricuspid Valve TR P. [id number]/sTR Peak Gr.66mmHg Pulmonary Vein S1 Wdiqfync89.0cm/s LEFT VENTRICLE The Left Ventricle is borderline dilated. There is mild concentric left ventricular hypertrophy. Left ventricle systolic function is moderately impaired. The Ejection Fraction is 35-40%. There is modera te global hypokinesis of the left ventricle. Tissue Doppler imaging reveals moderate left ventricular diastolic dysfunction. No left ventricle thrombus noted on this study. RIGHT VENTRICLE The right ventricle is normal size. There is normal right ventricular wall thickness. RV systolic fun ction is moderately reduced. ATRIA The left atrium is mildly dilated. The right atrium is mildly dilated. The interatrial septum is inta ct with no evidence for an atrial septal defect or patent foramen ovale as noted on 2-D or Doppler im aging. AORTIC VALVE The aortic valve is mildly sclerotic. The aortic valve is trileaflet. Doppler and Color Flow revealed trace aortic regurgitation. There is no significant aortic valvular stenosis. MITRAL VALVE The mitral valve leaflets are thickened. There is no evidence of mitral valve prolapse. There is no m itral valve stenosis. Doppler and Color Flow revealed mild to moderate mitral regurgitation. TRICUSPID VALVE Doppler and Color Flow revealed moderate to severe tricuspid regurgitation. The pulmonary artery syst olic pressure is estimated at 81 mmHg. There is severe pulmonary hypertension. PULMONIC VALVE Doppler and Color Flow revealed mild pulmonic valvular regurgitation. There is no pulmonic valvular s tenosis. GREAT VESSELS The aortic root is normal in size. The ascending aorta is normal in size. The pulmonary artery is nor mal. The IVC is dilated and collapses <50% with inspiration. Dilated hepatic veins were noted. Dopple r evaluation reveals systolic flow reversal (suggestive of severe TR). PERICARDIAL EFFUSION There is small right pleural effusion. There is no evidence of significant pericardial effusion. Critical Notification Critical Value: No <Conclusion> The Left Ventricle is borderline dilated. Left ventricle systolic function is moderately impaired. The Ejection Fraction is 35-40%. There is moderate global hypokinesis of the left ventricle. There is mild concentric left ventricular hypertrophy. RV systolic function is moderately reduced. There is no significant aortic valvular stenosis. Doppler and Color Flow revealed trace aortic regurgitation. Doppler and Color Flow revealed mild to moderate mitral regurgitation. Doppler and Color Flow revealed moderate to severe tricuspid regurgitation. The pulmonary artery systolic pressure is estimated at 81 mmHg. There is severe pulmonary hypertension. Doppler and Color Flow revealed mild pulmonic valvular regurgitation.
[2016-11-12] MEDS: ATORVASTATIN CALCIUM 40 MG TABLET. PO SCH (21:00)
[2016-11-12] MEDS: fentaNYL PF VIAL 100 MCG/2 ML VIAL IV PRN (21:29)
[2016-11-13] VITALS (15 sets, daily range): BP systolic 138–190; BP diastolic 63–90
--- NOTE | 2016-11-13 05:53 | PN ---
DATE: 11/12/2016 SUBJECTIVE: The patient is resting, slightly propped up in bed, slightly tachypneic. She is definitely more awake today than yesterday, stated that she is short of breath. Nursing staff stated that her heart rate goes up to 150, seems to be irregularly irregular, in AFib, although ____ slightly high also. Her H and H apparently has been stable, with her hemoglobin ____ 10 and hematocrit 30 over the last several measurements. PHYSICAL EXAMINATION: GENERAL: When I examined her this morning, she was pale, no jaundice, cyanosis or thyromegaly. No jugular venous distension. No lower limb edema. VITAL SIGNS: Her heart rate was 128, blood pressure was 165/99, temperature was 98.4, respiratory rate was 26 and oxygen saturation was 98% on 2 liters of oxygen. HEAD, EYES, EARS, NOSE AND THROAT: Showed normocephalic, atraumatic. NECK: Supple. HEART: Showed normal first and second heart sounds with no gallop, rub or murmur. CHEST: Clear to auscultation. No crepitation or rhonchi. ABDOMEN: Distended, soft, nontender. No guarding or rigidity. No organomegaly. All hernial orifices intact. Bowel sounds normal. NEUROLOGIC: She is lethargic, but arousable. She is definitely more awake today than yesterday. Opens her eyes, tracks and responds appropriately. All her cranial nerves intact. She moves upper extremities to much greater extent than lower extremities. She is mostly bedbound, chair bound. Her intake over the last 24 hours was 1000, output 720. LABORATORY DATA: As of this morning, her white cell count was 8100, hemoglobin 10, hematocrit 30, MCV 89 and platelet count 269,000. Her chemistry showed a serum sodium of 146, potassium 5.1, chloride 109, bicarbonate 22, anion gap of 15, BUN 64, creatinine 2. Estimated GFR was 23 mL per minute. Her glucose was 205 and calcium was 9. ASSESSMENT: 1. Altered mental status, most likely due to metabolic encephalopathy, resolving slowly. ____ has multiple episodes of low blood sugar. 2. Acute on chronic kidney injury. Her BUN and creatinine has improved. Her BUN came down from 91 to 64 and creatinine came down from 3 to 2. 3. Acute gastrointestinal bleed, with H and H has dropped initially to 7 and 21. She did receive 1 unit of packed RBCs. Yesterday morning, her hemoglobin dropped down to 5.6, hematocrit 17. Most likely, the measurement was inaccurate as her hemoglobin and hematocrit has risen to 10 and 31 after 1 unit of packed RBCs and remains stable throughout. 4. New onset atrial fibrillation with rapid ventricular response. PLAN: To order an EKG and chest x-ray. Consult the Cardiology team and also speech therapist to evaluate and treat and she was seen by the integration software developer's team and there are plans to do an upper and lower GI endoscopy. She has had endoscopies done before at [facility] and were unremarkable. OLI TERRY MD DR: HOWARD/yolanda JOB#: [id number] / [id number]
[2016-11-13 06:14] LABS: HEMATOCRIT 28.6 % (36.0-47.0); HEMOGLOBIN 9.3 g/dL (12.0-15.5); RED BLOOD COUNT 3.18 x10^6/uL (3.50-5.40); RED CELL DISTRIBUTION WIDTH 17.4 % (11.5-14.5); WHITE BLOOD COUNT 7.5 x10^3/uL (4.0-11.0)
[2016-11-13 06:35] LABS: CALCIUM 8.7 mg/dL (8.5-10.1); GFR 23.5; POTASSIUM 4.2 mmol/L (3.5-5.1)
[2016-11-13] MEDS: TAMSULOSIN 0.4 MG CAP.ER.24H. PO SCH (07:33)
[2016-11-13] MEDS: GABAPENTIN 300 MG CAPSULE. PO SCH (07:33)
[2016-11-13] MEDS: FOLIC/VIT B COMP W-C (RENAL) TABLET. PO SCH (07:33)
[2016-11-13] MEDS: CARVEDILOL 12.5 MG TABLET. PO SCH ×2 (07:33→16:47)
[2016-11-13] MEDS: VENLAFAXINE XR 37.5 MG CAP.ER.24H. PO SCH (07:33)
[2016-11-13] MEDS: ASPIRIN CHEWABLE 81 MG TABLET. PO SCH (07:33)
[2016-11-13] MEDS: INSULIN ASPART 300 UNITS/3 ML INSULN.PEN SQ SCH ×3 (07:43→16:57)
[2016-11-13] MEDS: PANTOPRAZOLE IV PUSH 40 MG VIAL. IVP SCH ×2 (08:33→21:01)
--- NOTE | 2016-11-13 08:59 | PDOC ---
Objective: Objective: Per RN - no recurrent bleeding, NPO for failed swallow. Vital Signs: Vital Signs Date Time Temp Pulse Resp B/P (MAP) Pulse Ox O2 Delivery O2 Flow Rate FiO2 11/13/16 08:27 86 22 155/64 (94) 96 Nasal Cannula 2.0 11/13/16 07:30 98.1 98.1 Labs: Laboratory Tests Test 11/12/16 12:29 11/12/16 17:03 11/13/16 00:27 11/13/16 07:41 Glucose (Fingerstick) 238 mg/dL (70-99) 248 mg/dL (70-99) 251 mg/dL (70-99) 286 mg/dL (70-99) Imaging: [facility] Bedside Swallow Eval: Pt demo's infrequent subtle s/s aspiration. Timing of pharyngeal swallow initiation is inconsistently minimally delayed. Hyolaryngeal mvmt is WFL to palpation. Pt was awake & verbally responsive, but dwas unable to maintain consistent alertness w/o verbal cues. Min delayed timing of pharyngeal swallow initiation and poor alertness level result in signif. increased risk for aspiration. No safe PO consistency identified at this time. Anticipate return to PO intake w/ improved ability to remain consistently awake & alert. See full BSE report for details. RECOMMENDATIONS: NPO. Will continue [facility] f/u to determine safety of PO intake. PE: GEN: NAD LUNGS: clear anteriorly, nasal cannula HEART: RRR ABD: NABS, S/ND/NT NEURO/PSYCH: eyes closed, "help me, help me" A/P: Bloody stool - resolved -EGD and colon w/ Dr. Ramírez last year: gastritis, duodenitis, rectal polyp -Hgb stable after transfusions, on IV PPI -bleeding scan neg, CT limited w/o contrast (?ascending colon thickening) A Fib, RAMY, AMS -- Family has declined endoscopy. Continue medical therapy. BRAULIO PEREZ Nov 13, 2016 08:59
[2016-11-13] MEDS ORDERED: TPN PER PHARMACY MC PRN (09:00)
[2016-11-13 09:13] LABS: ALBUMIN 3.3 g/dL (3.4-5.0); MAGNESIUM 2.8 mg/dL (1.8-2.4); PHOSPHORUS 2.8 mg/dL (2.6-4.7)
[2016-11-13] MEDS: IV DEXTROSE 5 %-0.45 % NACL 1,000 ML IV SCH (09:45)
--- NOTE | 2016-11-13 09:51 | PDOC ---
PROGRESS NOTES Assessment Problems Medical Problems: (1) Acute on chronic renal failure Status: Acute (2) Syncope Status: Acute (3) Weakness generalized Status: Acute Metabolic encephalopathy. 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 No evidence of acute CVA Plan Will follow Subjective No complaints Objective Vital Signs Date Time Temp Pulse Resp B/P (MAP) Pulse Ox O2 Delivery O2 Flow Rate FiO2 11/13/16 09:01 80 16 149/70 (96) 97 Nasal Cannula 2.0 11/13/16 07:30 98.1 98.1 Intake and Output 11/13/16 07:00 Intake Total 803.06 ml Output Total 1470 ml Balance -666.94 ml Intake Oral 0 ml IV Total 803.06 ml Output Urine Total 1470 ml PHYSICAL EXAM Somnolent. Oriented to "Hospital" and person, not date. PERRL. EOMI. CN: no focal findings. Muscle tone: normal. Muscle strength: 4/5 DTR: 1+ Plantar reflex: flexor Gait: not examined in bed. Sensory exam: no abnormal findings. No cerebellar signs elicited. Review of Relevant I have reviewed the following items skip (where applicable) has been applied. Labs Laboratory Tests Test 11/11/16 12:00 11/11/16 14:11 11/11/16 16:36 11/11/16 19:45 Hemoglobin 9.8 g/dL (12.0-15.5) 10.1 g/dL (12.0-15.5) Hematocrit 30.0 % (36.0-47.0) 30.8 % (36.0-47.0) Mean Corpuscular Hemoglobin Concent 33 g/dL (31-37) 33 g/dL (31-37) Glucose (Fingerstick) 170 mg/dL (70-99) 150 mg/dL (70-99) Test 11/11/16 21:19 11/12/16 00:35 11/12/16 05:30 11/12/16 08:44 Glucose (Fingerstick) 175 mg/dL (70-99) 198 mg/dL (70-99) Hemoglobin 10.0 g/dL (12.0-15.5) 10.2 g/dL (12.0-15.5) Hematocrit 30.6 % (36.0-47.0) 30.3 % (36.0-47.0) Mean Corpuscular Hemoglobin Concent 33 g/dL (31-37) 34 g/dL (31-37) White Blood Count 8.1 x10^3/uL (4.0-11.0) Red Blood Count 3.41 x10^6/uL (3.50-5.40) Mean Corpuscular Volume 89 fL (79-100) Mean Corpuscular Hemoglobin 30 pg (25-35) Red Cell Distribution Width 17.4 % (11.5-14.5) Platelet Count 169 x10^3/uL (140-400) Sodium Level 146 mmol/L (136-145) Potassium Level 5.1 mmol/L (3.5-5.1) Chloride Level 109 mmol/L (98-107) Carbon Dioxide Level 22 mmol/L (21-32) Anion Gap 15 (6-14) Blood Urea Nitrogen 64 mg/dL (7-20) Creatinine 2.0 mg/dL (0.6-1.0) Estimated GFR (Cockcroft-Gault) 23.5 Glucose Level 206 mg/dL (70-99) Calcium Level 9.0 mg/dL (8.5-10.1) Test 11/12/16 12:29 11/12/16 17:03 11/13/16 00:27 11/13/16 05:24 Glucose (Fingerstick) 238 mg/dL (70-99) 248 mg/dL (70-99) 251 mg/dL (70-99) White Blood Count 7.5 x10^3/uL (4.0-11.0) Red Blood Count 3.18 x10^6/uL (3.50-5.40) Hemoglobin 9.3 g/dL (12.0-15.5) Hematocrit 28.6 % (36.0-47.0) Mean Corpuscular Volume 90 fL (79-100) Mean Corpuscular Hemoglobin 29 pg (25-35) Mean Corpuscular Hemoglobin Concent 33 g/dL (31-37) Red Cell Distribution Width 17.4 % (11.5-14.5) Platelet Count 178 x10^3/uL (140-400) Sodium Level 147 mmol/L (136-145) Potassium Level 4.2 mmol/L (3.5-5.1) Chloride Level 111 mmol/L (98-107) Carbon Dioxide Level 25 mmol/L (21-32) Anion Gap 11 (6-14) Blood Urea Nitrogen 67 mg/dL (7-20) Creatinine 2.0 mg/dL (0.6-1.0) Estimated GFR (Cockcroft-Gault) 23.5 Glucose Level 276 mg/dL (70-99) Calcium Level 8.7 mg/dL (8.5-10.1) Phosphorus Level 2.8 mg/dL (2.6-4.7) Magnesium Level 2.8 mg/dL (1.8-2.4) Albumin 3.3 g/dL (3.4-5.0) Test 11/13/16 07:41 Glucose (Fingerstick) 286 mg/dL (70-99) Laboratory Tests Test 11/12/16 12:29 11/12/16 17:03 11/13/16 00:27 11/13/16 05:24 Glucose (Fingerstick) 238 mg/dL (70-99) 248 mg/dL (70-99) 251 mg/dL (70-99) White Blood Count 7.5 x10^3/uL (4.0-11.0) Red Blood Count 3.18 x10^6/uL (3.50-5.40) Hemoglobin 9.3 g/dL (12.0-15.5) Hematocrit 28.6 % (36.0-47.0) Mean Corpuscular Volume 90 fL (79-100) Mean Corpuscular Hemoglobin 29 pg (25-35) Mean Corpuscular Hemoglobin Concent 33 g/dL (31-37) Red Cell Distribution Width 17.4 % (11.5-14.5) Platelet Count 178 x10^3/uL (140-400) Sodium Level 147 mmol/L (136-145) Potassium Level 4.2 mmol/L (3.5-5.1) Chloride Level 111 mmol/L (98-107) Carbon Dioxide Level 25 mmol/L (21-32) Anion Gap 11 (6-14) Blood Urea Nitrogen 67 mg/dL (7-20) Creatinine 2.0 mg/dL (0.6-1.0) Estimated GFR (Cockcroft-Gault) 23.5 Glucose Level 276 mg/dL (70-99) Calcium Level 8.7 mg/dL (8.5-10.1) Phosphorus Level 2.8 mg/dL (2.6-4.7) Magnesium Level 2.8 mg/dL (1.8-2.4) Albumin 3.3 g/dL (3.4-5.0) Test 11/13/16 07:41 Glucose (Fingerstick) 286 mg/dL (70-99) Microbiology 11/07/16 Urine Culture - Final, Complete 11/07/16 Urine Culture Result 1 (AYDE) - Final, Complete Medications Current Medications Ondansetron HCl (Zofran) 4 mg PRN Q8HRS PRN IV NAUSEA/VOMITING; Start 11/07/16 at 15:15; Stop 11/08/16 at 15:14; Status DC Dextrose (Dextrose 50%-Water Syringe) 12.5 gm PRN Q15MIN PRN IV SEE COMMENTS; Start 11/07/16 at 15:15; Status Cancel Sodium Chloride 1,000 ml @ 125 mls/hr 1X ONCE IV ; Start 11/07/16 at 15:15; Stop 11/07/16 at 23:14; Status DC Sodium Chloride 1,000 ml @ 100 mls/hr 1X ONCE IV Last administered on 16:07; Start 11/07/16 at 15:15; Stop 11/08/16 at 01:14; Status DC Levetiracetam (Keppra) 500 mg BID PO Last administered on 11/10/16 20:16; Start 11/07/16 at 21:00; Stop 11/11/16 at 08:25; Status DC Atorvastatin Calcium (Lipitor) 40 mg QHS PO Last administered on 11/11/16 21: 03; Start 11/07/16 at 21:00 Acetaminophen (Tylenol) 650 mg PRN Q6HRS PRN PO MILD PAIN / TEMP Last administered on 11/10/16 17:15; Start 11/08/16 at 12:15 Albuterol Sulfate (Ventolin Neb Soln) 2.5 mg Q4H PRN NEB SHORTNESS OF BREATH; Start 11/08/16 at 12:00 Atorvastatin Calcium (Lipitor) 40 mg QHS PO ; Start 11/08/16 at 21:00; Status UNV Carvedilol (Coreg) 12.5 mg BIDWMEALS PO Last administered on 11/11/16 16:38; Start 11/08/16 at 17:00 Diltiazem HCl (Cardizem 24hr Cd) 120 mg DAILY PO ; Start 11/08/16 at 13:00; Stop 11/08/16 at 15:48; Status DC Vitamin B Complex/ Vitamin C (Taylor-Aditya) 1 tab DAILY PO Last administered on 09:01; Start 11/09/16 at 09:00 Hyoscyamine (Anaspaz) 0.125 mg PRN Q4HRS PRN PO ABD PAIN; Start 11/08/16 at 12: 00 Magnesium Hydroxide (Milk Of Magnesia) 2,400 mg DAILY PRN PO CONSTIPATION; Start 11/08/16 at 12:00 Nitroglycerin (Nitrostat) 0.4 mg PRN Q5MIN PRN SL CHEST PAIN; Start 11/08/16 at 12:00 Pantoprazole Sodium (Protonix) 40 mg DAILYAC PO Last administered on 11/10/16 09:02; Start 11/08/16 at 13:00; Stop 11/10/16 at 13:32; Status DC Polyethylene Glycol (miraLAX PACKET) 17 gm DAILY PRN PO CONSTIPATION; Start at 12:00 Tamsulosin HCl (Flomax) 0.4 mg DAILY PO Last administered on 11/10/16 09:01; Start 11/08/16 at 13:00 Tramadol HCl (Ultram) 50 mg PRN TID PRN PO PAIN Last administered on 11/11/16 21:10; Start 11/08/16 at 12:00 Venlafaxine HCl (Effexor Xr) 37.5 mg DAILY PO Last administered on 11/10/16 09 :01; Start 11/08/16 at 13:00 Gabapentin (Neurontin) 300 mg DAILY PO Last administered on 11/10/16 09:01; Start 11/08/16 at 13:00 Sodium Chloride 1,000 ml @ 75 mls/hr [id number] IV Last administered on 01:59; Start 11/08/16 at 12:30; Stop 11/09/16 at 10:13; Status DC Aspirin (Children'S Aspirin) 81 mg DAILYWBKFT PO Last administered on 08:53; Start 11/08/16 at 18:00 Dextrose (Dextrose 50%-Water Syringe) 12.5 gm PRN Q15MIN PRN IV SEE COMMENTS; Start 11/09/16 at 13:00; Status Cancel Sodium Chloride 1,000 ml @ 50 mls/hr Q20H IV Last administered on 11/09/16 17 :54; Start 11/09/16 at 18:00; Stop 11/10/16 at 10:18; Status DC Insulin Aspart (NovoLOG) 0-7 UNITS TIDWMEALS SQ Last administered on 11/13/16 07:43; Start 11/10/16 at 08:00; Stop 11/13/16 at 09:39; Status DC Dextrose (Dextrose 50%-Water Syringe) 12.5 gm PRN Q15MIN PRN IV SEE COMMENTS; Start 11/09/16 at 18:00 Pantoprazole Sodium (Protonix Vial) 40 mg BID IVP Last administered on 08:33; Start 11/09/16 at 21:00 Levetiracetam 500 mg/Sodium Chloride 105 ml @ 420 mls/hr Q12HR IV Last administered on 11/13/16 08:34; Start 11/11/16 at 09:00 Labetalol HCl (Normodyne) 10 mg Q4H PRN IVP HYPERTENSION, SEE COMMENTS Last administered on 11/12/16 09:16; Start 11/11/16 at 09:45 Diltiazem HCl 125 mg/Dextrose 125 ml @ 0 mls/hr CONT PRN IV SEE I/O RECORD Last administered on 11/13/16 02:30; Start 11/12/16 at 10:45 Diltiazem HCl (Cardizem) 10 mg 1X ONCE IVP Last administered on 11/12/16 11: 06; Start 11/12/16 at 11:00; Stop 11/12/16 at 11:01; Status DC Dextrose/Sodium Chloride 1,000 ml @ 50 mls/hr Q20H IV Last administered on 13:39; Start 11/12/16 at 13:45 Fentanyl Citrate (Fentanyl 2ml Vial) 25 mcg PRN Q4HRS PRN IV SEVERE PAIN Last administered on 11/12/16t 21:29; Start 11/12/16 at 21:15 Amino Acids/ Glycerin/ Electrolytes 1,000 ml @ 80 mls/hr [id number] IV ; Start at 09:00; Stop 11/13/16 at 21:59 Info 1 each PRN DAILY PRN MC SEE COMMENTS; Start 11/13/16 at 09:00 Insulin Aspart (NovoLOG) 0-7 UNITS Q6HRS SQ ; Start 11/13/16 at 12:00 Active Scripts Active Reported Novolog (Insulin Aspart) 100 Unit/1 Ml Cartridge 12 Unit SQ BIDACLD Novolog (Insulin Aspart) 100 Unit/1 Ml Cartridge 10 Unit SQ DAILYWBKFT Levemir (Insulin Detemir) 100 Unit/1 Ml Vial 15 Unit SQ HS Tramadol Hcl 50 Mg Tablet 1 Tab PO PRN TID Acetaminophen 500 Mg Tablet 650 Mg PO PRN Q6HRS Keppra (Levetiracetam) 500 Mg Tablet 1 Tab PO BID Coreg (Carvedilol) 12.5 Mg Tablet 1 Tab PO BID Venlafaxine Hcl Er (Venlafaxine Hcl) 37.5 Mg Cap.er.24h 1 Cap PO DAILY Hyoscyamine Sulfate 0.125 Mg Tab.rapdis 0.125 Mg SL PRN Q4HRS Miralax (Polyethylene Glycol 3350) 17 Gm Powd.pack 1 Packet PO DAILY PRN Lasix (Furosemide) 40 Mg Tablet 40 Mg PO BID Tamsulosin Hcl 0.4 Mg Cap.er.24h 1 Cap PO DAILY Gabapentin 300 Mg Capsule 300 Mg PO DAILY Diltiazem 24HR Cd (Diltiazem Hcl) 120 Mg Cap.er.24h 1 Cap PO DAILY Atorvastatin Calcium 40 Mg Tablet 1 Tab PO DAILY Albuterol Sulfate Neb Soln (Albuterol Sulfate) 2.5 Mg/3 Ml Vial.neb 2.5 Mg NEB Milk Of Magnesia (Magnesium Hydroxide) 400 Mg/5 Ml Oral.susp 400 Mg PO Protonix (Pantoprazole Sodium) 40 Mg Tablet.dr 40 Mg PO DAILY Nitrostat (Nitroglycerin) 0.4 Mg Tab.subl 0.4 Mg SL PRN Q5MIN PRN Nephro-Aditya Tablet (Folic Acid/Vitamin B Comp W-C) 0.8 Mg Tablet 0.8 Mg PO Vitals/I & O Vital Sign - Last 24 Hours 11/12/16 11/12/16 11/12/16 11/12/16 10:00 11:00 11:06 11:15 Pulse 118 120 122 92 Resp 22 26 38 B/P (MAP) 161/91 (114) 149/96 (113) 149/96 140/75 (96) Pulse Ox 96 96 94 O2 Delivery Nasal Cannula Nasal Cannula Nasal Cannula O2 Flow Rate 2.0 2.0 2.0 11/12/16 11/12/16 11/12/16 11/12/16 11:30 11:45 12:00 12:00 Temp 98.6 98.6 Pulse 96 96 100 Resp 40 40 44 B/P (MAP) 163/88 (113) 168/81 (110) 176/88 (117) Pulse Ox 95 94 94 O2 Delivery Nasal Cannula Nasal Cannula Nasal Cannula Nasal Cannula O2 Flow Rate 2.0 2.0 2.0 2.0 11/12/16 11/12/16 11/12/16 11/12/16 12:15 12:30 12:45 13:00 Pulse 88 94 96 98 Resp 36 24 36 40 B/P (MAP) 150/74 (99) 154/73 (100) 172/86 (114) 164/91 (115) Pulse Ox 96 94 95 95 O2 Delivery Nasal Cannula Nasal Cannula Nasal Cannula Nasal Cannula O2 Flow Rate 2.0 2.0 2.0 2.0 11/12/16 11/12/16 11/12/16 11/12/16 13:30 14:00 14:30 15:00 Pulse 96 100 102 100 Resp 40 40 36 30 B/P (MAP) 163/88 (113) 153/81 (105) 157/87 (110) 146/89 (108) Pulse Ox 94 95 94 95 O2 Delivery Nasal Cannula Nasal Cannula Nasal Cannula Nasal Cannula O2 Flow Rate 2.0 2.0 2.0 2.0 11/12/16 11/12/16 11/12/16 11/12/16 15:30 16:00 16:00 16:30 Temp 97.9 97.9 Pulse 104 96 98 Resp 22 B/P (MAP) 166/90 (115) 155/83 (107) 165/84 (111) Pulse Ox 95 97 94 O2 Delivery Nasal Cannula Nasal Cannula Nasal Cannula Nasal Cannula O2 Flow Rate 2.0 2.0 2.0 2.0 11/12/16 11/12/16 11/12/16 11/12/16 17:00 17:30 18:00 19:00 Pulse 98 102 104 102 Resp 30 32 30 16 B/P (MAP) 149/78 (101) 169/73 (105) 162/79 (106) 161/77 (105) Pulse Ox 95 97 97 96 O2 Delivery Nasal Cannula Nasal Cannula Nasal Cannula Nasal Cannula O2 Flow Rate 2.0 2.0 2.0 2.0 11/12/16 11/12/16 11/12/16 11/12/16 20:00 20:00 21:00 21:29 Temp 98.8 98.8 Pulse 92 84 Resp 16 14 10 B/P (MAP) 149/72 (97) 153/79 (103) Pulse Ox 97 97 97 O2 Delivery Nasal Cannula Nasal Cannula Nasal Cannula Nasal Cannula O2 Flow Rate 2.0 2.0 2.0 2.0 11/12/16 11/12/16 11/12/16 11/13/16 21:59 22:00 23:00 00:00 Temp 98.9 98.9 Pulse 103 84 94 Resp 20 16 21 25 B/P (MAP) 140/72 (94) 142/66 (91) 154/63 (93) Pulse Ox 97 97 98 98 O2 Delivery Nasal Cannula Nasal Cannula Nasal Cannula Nasal Cannula O2 Flow Rate 2.0 2.0 2.0 2.0 11/13/16 11/13/16 11/13/16 11/13/16 00:00 01:00 02:00 03:00 Pulse 84 84 84 Resp 21 20 24 B/P (MAP) 168/83 (111) 138/79 (98) 154/84 (107) Pulse Ox 97 97 97 O2 Delivery Nasal Cannula Nasal Cannula Nasal Cannula Nasal Cannula O2 Flow Rate 2.0 2.0 2.0 2.0 11/13/16 11/13/16 11/13/16 11/13/16 04:00 04:00 05:00 06:00 Temp 98.5 98.5 Pulse 87 85 83 Resp 23 20 24 B/P (MAP) 163/81 (108) 159/74 (102) 165/83 (110) Pulse Ox 97 97 97 O2 Delivery Nasal Cannula Nasal Cannula Nasal Cannula Nasal Cannula O2 Flow Rate 2.0 2.0 2.0 2.0 11/13/16 11/13/16 11/13/16 11/13/16 07:30 07:51 08:27 09:01 Temp 98.1 98.1 Pulse 88 86 80 Resp 24 22 16 B/P (MAP) 156/71 (99) 155/64 (94) 149/70 (96) Pulse Ox 97 96 97 O2 Delivery Nasal Cannula Nasal Cannula Nasal Cannula Nasal Cannula O2 Flow Rate 2.0 2.0 2.0 2.0 Intake and Output 11/12/16 11/12/16 11/13/16 15:00 23:00 07:00 Intake Total 105 ml 650.06 ml 48 ml Output Total 325 ml 770 ml 375 ml Balance -220 ml -119.94 ml -[address] MD Nov 13, 2016 09:51
--- NOTE | 2016-11-13 10:27 | PDOC ---
CARDIO Progress Notes Date and Time Date of Service 11/13/2016 Time of Evaluation 0940 Subjective Subjective: No Chest Pain, No shortness of breath, Other (does not recognize me today) Vitals Vitals Vital Signs Date Time Temp Pulse Resp B/P (MAP) Pulse Ox O2 Delivery O2 Flow Rate FiO2 11/13/16 09:01 80 16 149/70 (96) 97 Nasal Cannula 2.0 11/13/16 07:30 98.1 98.1 Weight Weight [ ] Input and Output Intake and Output Intake and Output 11/13/16 07:00 Intake Total 803.06 ml Output Total 1470 ml Balance -666.94 ml Intake Oral 0 ml IV Total 803.06 ml Output Urine Total 1470 ml Laboratory Labs Laboratory Tests Test 11/12/16 12:29 11/12/16 17:03 11/13/16 00:27 11/13/16 05:24 Glucose (Fingerstick) 238 mg/dL (70-99) 248 mg/dL (70-99) 251 mg/dL (70-99) White Blood Count 7.5 x10^3/uL (4.0-11.0) Red Blood Count 3.18 x10^6/uL (3.50-5.40) Hemoglobin 9.3 g/dL (12.0-15.5) Hematocrit 28.6 % (36.0-47.0) Mean Corpuscular Volume 90 fL (79-100) Mean Corpuscular Hemoglobin 29 pg (25-35) Mean Corpuscular Hemoglobin Concent 33 g/dL (31-37) Red Cell Distribution Width 17.4 % (11.5-14.5) Platelet Count 178 x10^3/uL (140-400) Sodium Level 147 mmol/L (136-145) Potassium Level 4.2 mmol/L (3.5-5.1) Chloride Level 111 mmol/L (98-107) Carbon Dioxide Level 25 mmol/L (21-32) Anion Gap 11 (6-14) Blood Urea Nitrogen 67 mg/dL (7-20) Creatinine 2.0 mg/dL (0.6-1.0) Estimated GFR (Cockcroft-Gault) 23.5 Glucose Level 276 mg/dL (70-99) Calcium Level 8.7 mg/dL (8.5-10.1) Phosphorus Level 2.8 mg/dL (2.6-4.7) Magnesium Level 2.8 mg/dL (1.8-2.4) Albumin 3.3 g/dL (3.4-5.0) Test 11/13/16 07:41 Glucose (Fingerstick) 286 mg/dL (70-99) Microbiology Micro Microbiology 11/07/16 Urine Culture - Final, Complete 11/07/16 Urine Culture Result 1 (AYDE) - Final, Complete Physical Exam HEENT: Neck Supple W Full Motion Chest: Symmetric LUNGS: Other (basilar crackles) Heart: S1S2, murmurs (4/6 systolic murmur to LLS border), irregularly irregular (AFIB) Abdomen: Soft N/T Extremities: No Calf Tenderness, Other (1+ bilateral LE pitting edema) Neurology: alert, oriented (x1), follow commands Assessment Assessment 1. Chronic AFIB: Remains controlled overnight 2. Severe pulmonary HTN: likely Group 2, PAP 81. Defer to PCP 3. Metabolic encephalopathy 4. Acute anemia: GI bleed?, unclear etiology. Trending down 5. CAD: remote CABG. stable. CP free 6. Cardiomyopathy: EF 35-40% 7. Valvular insufficiency mild to moderate MR. moderate to severe TR 8. Hx of TIA/CVA 9. DM2 10. Chronic combine systolic/diastolic CHF: appears to be compensated at this time. 11. HTN: BP labile. 12. RAMY on CKD4: per PCP Recommendations 1. Failed swallow study. Continue with cardizem drip for now. Will place on NTG paste for until po meds are allowed. 2. Discussed significantly with daughter yesterday and would remain with conservative measures with no invasive procedures. 3. Caution with IVF. Maintain FR at 2L daily 4. Possible rectal bleed per GI. Will resume po 81 ECASA when po is allowed for stroke prevention per my discussion with daughter in regards to risks of stroke and bleeding. 5. Will discuss new TTE findings with family when available. 6. Continue with secondary prevention. Rip HARTLEY. MAIA LONDONO APRN Nov 13, 2016 10:27
[2016-11-13] MEDS ORDERED: 0.9 % SODIUM CHLORIDE 10 ML DISP.SYRIN. IV PRN ×2 (10:45)
--- NOTE | 2016-11-13 10:52 | RAD ---
Indication: PICC line placement. Time of exam 10:39 AM Correlation is made with prior study 1 day earlier. A right upper extremity PICC line has the tip in good position at the SVC right atrial junction. No pneumothorax is identified. There are changes of median sternotomy. The heart size is stable. Infiltrate/atelectasis right upper lobe has slightly increased. There is also persistent infiltrate or atelectasis in the left base and small bilateral effusions. Impression: 1. Satisfactory right upper extremity PICC line placement. 2. Bilateral infiltrates/atelectasis.
[2016-11-13] MEDS: AMINO AC 3%/ELECTROLYTE/GLYCER 1,000 ML IV SCH ×2 (11:10→21:30)
[2016-11-13] MEDS: LABETALOL 20 MG/4 ML DISP.SYRIN. IVP PRN ×3 (11:46→22:01)
--- NOTE | 2016-11-13 12:05 | PDOC ---
SURGICAL PROGRESS NOTE Subjective asking for help, although she can not tell me what is wrong d/w nursing, no further bleeding episodes family meeting planned today Vital Signs Vital Signs Date Time Temp Pulse Resp B/P (MAP) Pulse Ox O2 Delivery O2 Flow Rate FiO2 11/13/16 11:46 94 180/90 11/13/16 11:44 97.8 30 95 Nasal Cannula 2.0 97.8 I&O Intake and Output 11/13/16 07:00 Intake Total 803.06 ml Output Total 1470 ml Balance -666.94 ml Intake Oral 0 ml IV Total 803.06 ml Output Urine Total 1470 ml General: Cooperative, No acute distress Abdomen: Soft, No tenderness Labs Laboratory Tests Test 11/11/16 14:11 11/11/16 16:36 11/11/16 19:45 11/11/16 21:19 Glucose (Fingerstick) 170 mg/dL (70-99) 150 mg/dL (70-99) 175 mg/dL (70-99) Hemoglobin 10.1 g/dL (12.0-15.5) Hematocrit 30.8 % (36.0-47.0) Mean Corpuscular Hemoglobin Concent 33 g/dL (31-37) Test 11/12/16 00:35 11/12/16 05:30 11/12/16 08:44 11/12/16 12:29 Hemoglobin 10.0 g/dL (12.0-15.5) 10.2 g/dL (12.0-15.5) Hematocrit 30.6 % (36.0-47.0) 30.3 % (36.0-47.0) Mean Corpuscular Hemoglobin Concent 33 g/dL (31-37) 34 g/dL (31-37) White Blood Count 8.1 x10^3/uL (4.0-11.0) Red Blood Count 3.41 x10^6/uL (3.50-5.40) Mean Corpuscular Volume 89 fL (79-100) Mean Corpuscular Hemoglobin 30 pg (25-35) Red Cell Distribution Width 17.4 % (11.5-14.5) Platelet Count 169 x10^3/uL (140-400) Sodium Level 146 mmol/L (136-145) Potassium Level 5.1 mmol/L (3.5-5.1) Chloride Level 109 mmol/L (98-107) Carbon Dioxide Level 22 mmol/L (21-32) Anion Gap 15 (6-14) Blood Urea Nitrogen 64 mg/dL (7-20) Creatinine 2.0 mg/dL (0.6-1.0) Estimated GFR (Cockcroft-Gault) 23.5 Glucose Level 206 mg/dL (70-99) Calcium Level 9.0 mg/dL (8.5-10.1) Glucose (Fingerstick) 198 mg/dL (70-99) 238 mg/dL (70-99) Test 11/12/16 17:03 11/13/16 00:27 11/13/16 05:24 11/13/16 07:41 Glucose (Fingerstick) 248 mg/dL (70-99) 251 mg/dL (70-99) 286 mg/dL (70-99) White Blood Count 7.5 x10^3/uL (4.0-11.0) Red Blood Count 3.18 x10^6/uL (3.50-5.40) Hemoglobin 9.3 g/dL (12.0-15.5) Hematocrit 28.6 % (36.0-47.0) Mean Corpuscular Volume 90 fL (79-100) Mean Corpuscular Hemoglobin 29 pg (25-35) Mean Corpuscular Hemoglobin Concent 33 g/dL (31-37) Red Cell Distribution Width 17.4 % (11.5-14.5) Platelet Count 178 x10^3/uL (140-400) Sodium Level 147 mmol/L (136-145) Potassium Level 4.2 mmol/L (3.5-5.1) Chloride Level 111 mmol/L (98-107) Carbon Dioxide Level 25 mmol/L (21-32) Anion Gap 11 (6-14) Blood Urea Nitrogen 67 mg/dL (7-20) Creatinine 2.0 mg/dL (0.6-1.0) Estimated GFR (Cockcroft-Gault) 23.5 Glucose Level 276 mg/dL (70-99) Calcium Level 8.7 mg/dL (8.5-10.1) Phosphorus Level 2.8 mg/dL (2.6-4.7) Magnesium Level 2.8 mg/dL (1.8-2.4) Albumin 3.3 g/dL (3.4-5.0) Test 11/13/16 11:39 Glucose (Fingerstick) 283 mg/dL (70-99) Laboratory Tests Test 11/12/16 12:29 11/12/16 17:03 11/13/16 00:27 11/13/16 05:24 Glucose (Fingerstick) 238 mg/dL (70-99) 248 mg/dL (70-99) 251 mg/dL (70-99) White Blood Count 7.5 x10^3/uL (4.0-11.0) Red Blood Count 3.18 x10^6/uL (3.50-5.40) Hemoglobin 9.3 g/dL (12.0-15.5) Hematocrit 28.6 % (36.0-47.0) Mean Corpuscular Volume 90 fL (79-100) Mean Corpuscular Hemoglobin 29 pg (25-35) Mean Corpuscular Hemoglobin Concent 33 g/dL (31-37) Red Cell Distribution Width 17.4 % (11.5-14.5) Platelet Count 178 x10^3/uL (140-400) Sodium Level 147 mmol/L (136-145) Potassium Level 4.2 mmol/L (3.5-5.1) Chloride Level 111 mmol/L (98-107) Carbon Dioxide Level 25 mmol/L (21-32) Anion Gap 11 (6-14) Blood Urea Nitrogen 67 mg/dL (7-20) Creatinine 2.0 mg/dL (0.6-1.0) Estimated GFR (Cockcroft-Gault) 23.5 Glucose Level 276 mg/dL (70-99) Calcium Level 8.7 mg/dL (8.5-10.1) Phosphorus Level 2.8 mg/dL (2.6-4.7) Magnesium Level 2.8 mg/dL (1.8-2.4) Albumin 3.3 g/dL (3.4-5.0) Test 11/13/16 07:41 11/13/16 11:39 Glucose (Fingerstick) 286 mg/dL (70-99) 283 mg/dL (70-99) Problem List Problems Medical Problems: (1) Acute on chronic renal failure Status: Acute (2) Syncope Status: Acute (3) Weakness generalized Status: Acute Assessment/Plan gi bleed no acute bleeding, hgb stable supportive care, no surgical plans Problems: LISETTE POTTS APRN Nov 13, 2016 12:05
[2016-11-13] MEDS: NITROGLYCERIN OINT 1 GM PACKET. TP SCH ×2 (12:20→16:47)
--- NOTE | 2016-11-13 16:43 | PDOC2 ---
PALLIATIVE CARE Palliative Care Note Palliative Care Patient seen at 1400. Lethargic. RR 30/min. c/o SOB and dry mouth/ moaning-- "help me" Unable to verbalize needs. Spoke with daughter Charisse this am and again 1500. Reviewed medical condition; Increased respiratory distress, cardiomyopathy EF35% ; severe pulmonary hypertension, A/C Kidney disease, GI Bleed -no active signs/Bleeding Scan negative. This am Charisse was concerned about starving her mother. Reviewed concerns regarding overloading with fluid. Patient with dry mouth but not hungry. Charisse states she wants to keep her mother "comfortable as possible" addressing pain, SOB, anxiety. Understands her mother is nearing the end of her life. Confirmed DNR/DNI. Discussed Hospice. Charisse would be interesting in having her mother go back to [place] with Hospice. This home to her and thinks she would be more comfortable at the facility. Has no preference of agency --would like to work with one [facility] suggests. Spoke with Isabella HUMMEL who will notify Dr. Vital of results of family meeting and ask for comfort care orders. Plan: Comfort Care---Return to [place] with Hospice. DNR/DNI MAGDA COREY Nov 13, 2016 16:43
[2016-11-13] MEDS ORDERED: FUROSEMIDE 20 MG/2 ML VIAL. IVP ONE (19:30)
[2016-11-13] MEDS: fentaNYL PF VIAL 100 MCG/2 ML VIAL IV PRN ×2 (21:00→23:08)
[2016-11-13] MEDS: ATORVASTATIN CALCIUM 40 MG TABLET. PO SCH (21:01)
[2016-11-13] MEDS ORDERED: AMINO ACIDS IV SCH ×9 (22:00)
[2016-11-13] MEDS ORDERED: [UNRECOGNIZED DRUG - OTHER] IV SCH ×9 (22:00)
[2016-11-13] MEDS ORDERED: DEXTROSE 70% IV SCH ×9 (22:00)
[2016-11-13] MEDS ORDERED: TOTAL PARENTERAL NUTRITION IV SCH ×9 (22:00)
[2016-11-14] MEDS: NITROGLYCERIN OINT 1 GM PACKET. TP SCH ×3 (00:42→12:00)
[2016-11-14] MEDS: INSULIN ASPART 300 UNITS/3 ML INSULN.PEN SQ SCH ×3 (00:47→12:00)
[2016-11-14] MEDS: fentaNYL PF VIAL 100 MCG/2 ML VIAL IV PRN ×4 (00:51→14:40)
[2016-11-14 03:10] VITALS: BP 147/52
[2016-11-14] MEDS ORDERED: SCOPOLAMINE 1.5MG PATCH. TD SCH (04:30)
[2016-11-14] MEDS: IV DEXTROSE 5 %-0.45 % NACL 1,000 ML IV SCH (05:45)
[2016-11-14 07:46] VITALS: BP 165/89
[2016-11-14] MEDS: CARVEDILOL 12.5 MG TABLET. PO SCH (08:00)
[2016-11-14] MEDS: ASPIRIN CHEWABLE 81 MG TABLET. PO SCH (08:00)
[2016-11-14] MEDS: PANTOPRAZOLE IV PUSH 40 MG VIAL. IVP SCH (08:06)
[2016-11-14] MEDS ORDERED: MORPHINE SULFATE 20 MG/ML CONC SOLUTION. SL PRN (08:15)
[2016-11-14] MEDS: FOLIC/VIT B COMP W-C (RENAL) TABLET. PO SCH (09:00)
[2016-11-14] MEDS: GABAPENTIN 300 MG CAPSULE. PO SCH (09:00)
[2016-11-14] MEDS: VENLAFAXINE XR 37.5 MG CAP.ER.24H. PO SCH (09:00)
[2016-11-14] MEDS: TAMSULOSIN 0.4 MG CAP.ER.24H. PO SCH (09:00)
[2016-11-14] MEDS ORDERED: fentaNYL PF VIAL 100 MCG/2 ML VIAL IV PRN (10:15)
[2016-11-14 10:20] VITALS: BP 165/76
--- NOTE | 2016-11-14 11:24 | PDOC ---
PROGRESS NOTES Assessment Problems Medical Problems: (1) Acute on chronic renal failure Status: Acute (2) Syncope Status: Acute (3) Weakness generalized Status: Acute Metabolic encephalopathy. 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 No evidence of acute CVA Family has decided for hospice Plan Will signoff Subjective None Objective Vital Signs Date Time Temp Pulse Resp B/P (MAP) Pulse Ox O2 Delivery O2 Flow Rate FiO2 11/14/16 11:08 95 Venturi Mask 12.0 11/14/16 10:20 98.5 95 23 165/76 (105) 98.5 Intake and Output 11/14/16 07:00 Intake Total 0 ml Output Total 877 ml Balance -877 ml Intake Oral 0 ml Output Urine Total 877 ml PHYSICAL EXAM Somnolent. Appears comfortable Review of Relevant I have reviewed the following items skip (where applicable) has been applied. Labs Laboratory Tests Test 11/12/16 12:29 11/12/16 17:03 11/13/16 00:27 11/13/16 05:24 Glucose (Fingerstick) 238 mg/dL (70-99) 248 mg/dL (70-99) 251 mg/dL (70-99) White Blood Count 7.5 x10^3/uL (4.0-11.0) Red Blood Count 3.18 x10^6/uL (3.50-5.40) Hemoglobin 9.3 g/dL (12.0-15.5) Hematocrit 28.6 % (36.0-47.0) Mean Corpuscular Volume 90 fL (79-100) Mean Corpuscular Hemoglobin 29 pg (25-35) Mean Corpuscular Hemoglobin Concent 33 g/dL (31-37) Red Cell Distribution Width 17.4 % (11.5-14.5) Platelet Count 178 x10^3/uL (140-400) Sodium Level 147 mmol/L (136-145) Potassium Level 4.2 mmol/L (3.5-5.1) Chloride Level 111 mmol/L (98-107) Carbon Dioxide Level 25 mmol/L (21-32) Anion Gap 11 (6-14) Blood Urea Nitrogen 67 mg/dL (7-20) Creatinine 2.0 mg/dL (0.6-1.0) Estimated GFR (Cockcroft-Gault) 23.5 Glucose Level 276 mg/dL (70-99) Calcium Level 8.7 mg/dL (8.5-10.1) Phosphorus Level 2.8 mg/dL (2.6-4.7) Magnesium Level 2.8 mg/dL (1.8-2.4) Albumin 3.3 g/dL (3.4-5.0) Test 11/13/16 07:41 11/13/16 11:39 11/13/16 16:40 11/13/16 20:41 Glucose (Fingerstick) 286 mg/dL (70-99) 283 mg/dL (70-99) 264 mg/dL (70-99) 248 mg/dL (70-99) Test 11/14/16 07:50 11/14/16 10:23 Glucose (Fingerstick) 371 mg/dL (70-99) 406 mg/dL (70-99) Laboratory Tests Test 11/13/16 11:39 11/13/16 16:40 11/13/16 20:41 11/14/16 07:50 Glucose (Fingerstick) 283 mg/dL (70-99) 264 mg/dL (70-99) 248 mg/dL (70-99) 371 mg/dL (70-99) Test 11/14/16 10:23 Glucose (Fingerstick) 406 mg/dL (70-99) Microbiology 11/07/16 Urine Culture - Final, Complete 11/07/16 Urine Culture Result 1 (AYDE) - Final, Complete Medications Current Medications Ondansetron HCl (Zofran) 4 mg PRN Q8HRS PRN IV NAUSEA/VOMITING; Start 11/07/16 at 15:15; Stop 11/08/16 at 15:14; Status DC Dextrose (Dextrose 50%-Water Syringe) 12.5 gm PRN Q15MIN PRN IV SEE COMMENTS; Start 11/07/16 at 15:15; Status Cancel Sodium Chloride 1,000 ml @ 125 mls/hr 1X ONCE IV ; Start 11/07/16 at 15:15; Stop 11/07/16 at 23:14; Status DC Sodium Chloride 1,000 ml @ 100 mls/hr 1X ONCE IV Last administered on t 16:07; Start 11/07/16 at 15:15; Stop 11/08/16 at 01:14; Status DC Levetiracetam (Keppra) 500 mg BID PO Last administered on 11/10/16 20:16; Start 11/07/16 at 21:00; Stop 11/11/16 at 08:25; Status DC Atorvastatin Calcium (Lipitor) 40 mg QHS PO Last administered on 11/13/16 21: 01; Start 11/07/16 at 21:00 Acetaminophen (Tylenol) 650 mg PRN Q6HRS PRN PO MILD PAIN / TEMP Last administered on 11/10/16 17:15; Start 11/08/16 at 12:15 Albuterol Sulfate (Ventolin Neb Soln) 2.5 mg Q4H PRN NEB SHORTNESS OF BREATH; Start 11/08/16 at 12:00 Atorvastatin Calcium (Lipitor) 40 mg QHS PO ; Start 11/08/16 at 21:00; Status UNV Carvedilol (Coreg) 12.5 mg BIDWMEALS PO Last administered on 11/11/16 16:38; Start 11/08/16 at 17:00 Diltiazem HCl (Cardizem 24hr Cd) 120 mg DAILY PO ; Start 11/08/16 at 13:00; Stop 11/08/16 at 15:48; Status DC Vitamin B Complex/ Vitamin C (Taylor-Aditya) 1 tab DAILY PO Last administered on 09:01; Start 11/09/16 at 09:00 Hyoscyamine (Anaspaz) 0.125 mg PRN Q4HRS PRN PO ABD PAIN; Start 11/08/16 at 12: 00 Magnesium Hydroxide (Milk Of Magnesia) 2,400 mg DAILY PRN PO CONSTIPATION; Start 11/08/16 at 12:00 Nitroglycerin (Nitrostat) 0.4 mg PRN Q5MIN PRN SL CHEST PAIN; Start 11/08/16 at 12:00 Pantoprazole Sodium (Protonix) 40 mg DAILYAC PO Last administered on 11/10/16 09:02; Start 11/08/16 at 13:00; Stop 11/10/16 at 13:32; Status DC Polyethylene Glycol (miraLAX PACKET) 17 gm DAILY PRN PO CONSTIPATION; Start at 12:00 Tamsulosin HCl (Flomax) 0.4 mg DAILY PO Last administered on 11/10/16 09:01; Start 11/08/16 at 13:00 Tramadol HCl (Ultram) 50 mg PRN TID PRN PO PAIN Last administered on 11/11/16 21:10; Start 11/08/16 at 12:00 Venlafaxine HCl (Effexor Xr) 37.5 mg DAILY PO Last administered on 11/10/16 09 :01; Start 11/08/16 at 13:00 Gabapentin (Neurontin) 300 mg DAILY PO Last administered on 11/10/16 09:01; Start 11/08/16 at 13:00 Sodium Chloride 1,000 ml @ 75 mls/hr [id number] IV Last administered on 01:59; Start 11/08/16 at 12:30; Stop 11/09/16 at 10:13; Status DC Aspirin (Children'S Aspirin) 81 mg DAILYWBKFT PO Last administered on 08:53; Start 11/08/16 at 18:00 Dextrose (Dextrose 50%-Water Syringe) 12.5 gm PRN Q15MIN PRN IV SEE COMMENTS; Start 11/09/16 at 13:00; Status Cancel Sodium Chloride 1,000 ml @ 50 mls/hr Q20H IV Last administered on 11/09/16 17 :54; Start 11/09/16 at 18:00; Stop 11/10/16 at 10:18; Status DC Insulin Aspart (NovoLOG) 0-7 UNITS TIDWMEALS SQ Last administered on 11/13/16 07:43; Start 11/10/16 at 08:00; Stop 11/13/16 at 09:39; Status DC Dextrose (Dextrose 50%-Water Syringe) 12.5 gm PRN Q15MIN PRN IV SEE COMMENTS; Start 11/09/16 at 18:00 Pantoprazole Sodium (Protonix Vial) 40 mg BID IVP Last administered on 08:06; Start 11/09/16 at 21:00 Levetiracetam 500 mg/Sodium Chloride 105 ml @ 420 mls/hr Q12HR IV Last administered on 11/13/16 21:22; Start 11/11/16 at 09:00 Labetalol HCl (Normodyne) 10 mg Q4H PRN IVP HYPERTENSION, SEE COMMENTS Last administered on 11/13/16 22:01; Start 11/11/16 at 09:45 Diltiazem HCl 125 mg/Dextrose 125 ml @ 0 mls/hr CONT PRN IV SEE I/O RECORD Last administered on 11/14/16 06:32; Start 11/12/16 at 10:45 Diltiazem HCl (Cardizem) 10 mg 1X ONCE IVP Last administered on 11/12/16 11: 06; Start 11/12/16 at 11:00; Stop 11/12/16 at 11:01; Status DC Dextrose/Sodium Chloride 1,000 ml @ 50 mls/hr Q20H IV Last administered on 13:39; Start 11/12/16 at 13:45 Fentanyl Citrate (Fentanyl 2ml Vial) 25 mcg PRN Q4HRS PRN IV SEVERE PAIN Last administered on 11/14/16 04:37; Start 11/12/16 at 21:15; Stop 11/14/16 at 08:21 ; Status DC Amino Acids/ Glycerin/ Electrolytes 1,000 ml @ 80 mls/hr [id number] IV Last administered on 11/13/16 11:10; Start 11/13/16 at 09:00; Stop 11/13/16 at 21:59 ; Status DC Info 1 each PRN DAILY PRN MC SEE COMMENTS Last administered on 11/13/16 12:44 ; Start 11/13/16 at 09:00 Insulin Aspart (NovoLOG) 0-7 UNITS Q6HRS SQ Last administered on 11/14/16 06: 37; Start 11/13/16 at 12:00 Sodium Chloride (Normal Saline Flush) 10 ml QSHIFT PRN IV AFTER MEDS AND BLOOD DRAWS; Start 11/13/16 at 10:45 Sodium Chloride (Normal Saline Flush) 20 ml QSHIFT PRN IV AFTER MEDS AND BLOOD DRAWS; Start 11/13/16 at 10:45 Nitroglycerin (Nitro-Bid Oint) 1 inch Q6HRS TP Last administered on 11/14/16 06:32; Start 11/13/16 at 12:00 Sodium Chloride 45 meq/Potassium Acetate 50 meq/ Potassium Phosphate 13.6 mmol/ Calcium Gluconate 10 meq/ Multivitamins 10 ml/Chromium/ Copper/Manganese/ Seleni /Zn 1 ml/ Total Parenteral Nutrition/Amino Acids/Dextrose/ Fat Emulsion Intravenous 1,512 ml @ 63 mls/hr TPN CONT IV Last administered on 11/13/16 21:47; Start 11/13/16 at 22:00; Stop 11/14/16 at 21:59 Lorazepam (Ativan) 0.5 mg PRN Q4HRS PRN IV ANXIETY / AGITATION Last administered on 11/14/16 04:36; Start 11/13/16 at 16:30; Stop 11/14/16 at 08:21 ; Status DC Furosemide (Lasix) 20 mg 1X ONCE IVP Last administered on 11/13/16 20:59; Start 11/13/16 at 19:30; Stop 11/13/16 at 19:31; Status DC Scopolamine (Transderm-Scop) 1 patch Q3DAYS TD Last administered on 11/14/16 04:38; Start 11/14/16 at 04:30 Fentanyl Citrate (Fentanyl 2ml Vial) 25 mcg PRN Q2HR PRN IV SEVERE PAIN; Start 11/14/16 at 10:15; Stop 11/14/16 at 10:15; Status DC Lorazepam (Ativan) 0.5 mg PRN Q2HR PRN IV ANXIETY / AGITATION; Start 11/14/16 at 08:30 Morphine Sulfate (Roxanol Conc) 5 mg PRN Q2HR PRN SL PAIN Last administered on 11/14/16 11:08; Start 11/14/16 at 08:15 Fentanyl Citrate (Fentanyl 2ml Vial) 25 mcg PRN Q2HR PRN IV SEVERE PAIN Last administered on 11/14/16 08:42; Start 11/14/16 at 08:30 Active Scripts Active Reported Novolog (Insulin Aspart) 100 Unit/1 Ml Cartridge 12 Unit SQ BIDACLD Novolog (Insulin Aspart) 100 Unit/1 Ml Cartridge 10 Unit SQ DAILYWBKFT Levemir (Insulin Detemir) 100 Unit/1 Ml Vial 15 Unit SQ HS Tramadol Hcl 50 Mg Tablet 1 Tab PO PRN TID Acetaminophen 500 Mg Tablet 650 Mg PO PRN Q6HRS Keppra (Levetiracetam) 500 Mg Tablet 1 Tab PO BID Coreg (Carvedilol) 12.5 Mg Tablet 1 Tab PO BID Venlafaxine Hcl Er (Venlafaxine Hcl) 37.5 Mg Cap.er.24h 1 Cap PO DAILY Hyoscyamine Sulfate 0.125 Mg Tab.rapdis 0.125 Mg SL PRN Q4HRS Miralax (Polyethylene Glycol 3350) 17 Gm Powd.pack 1 Packet PO DAILY PRN Lasix (Furosemide) 40 Mg Tablet 40 Mg PO BID Tamsulosin Hcl 0.4 Mg Cap.er.24h 1 Cap PO DAILY Gabapentin 300 Mg Capsule 300 Mg PO DAILY Diltiazem 24HR Cd (Diltiazem Hcl) 120 Mg Cap.er.24h 1 Cap PO DAILY Atorvastatin Calcium 40 Mg Tablet 1 Tab PO DAILY Albuterol Sulfate Neb Soln (Albuterol Sulfate) 2.5 Mg/3 Ml Vial.neb 2.5 Mg NEB Milk Of Magnesia (Magnesium Hydroxide) 400 Mg/5 Ml Oral.susp 400 Mg PO Protonix (Pantoprazole Sodium) 40 Mg Tablet.dr 40 Mg PO DAILY Nitrostat (Nitroglycerin) 0.4 Mg Tab.subl 0.4 Mg SL PRN Q5MIN PRN Nephro-Aditya Tablet (Folic Acid/Vitamin B Comp W-C) 0.8 Mg Tablet 0.8 Mg PO Vitals/I & O Vital Sign - Last 24 Hours 11/13/16 11/13/16 11/13/16 11/13/16 11:44 11:46 12:20 15:00 Temp 97.8 97.9 97.8 97.9 Pulse 101 94 88 96 Resp B/P (MAP) 180/90 (120) 180/90 180/93 161/87 (111) Pulse Ox 95 93 O2 Delivery Nasal Cannula Nasal Cannula O2 Flow Rate 2.0 2.0 11/13/16 11/13/16 11/13/16 11/13/16 18:29 19:05 19:30 22:01 Temp 97.2 97.2 Pulse 119 107 107 Resp B/P (MAP) 175/135 190/85 (120) 190/85 Pulse Ox 91 O2 Delivery Nasal Cannula Nasal Cannula O2 Flow Rate 2.0 3.0 11/13/16 11/14/16 11/14/16 11/14/16 23:10 00:42 03:10 06:32 Temp 98.4 98.2 98.4 98.2 Pulse 84 84 79 84 Resp 22 19 B/P (MAP) 189/84 (119) 189/84 147/52 (83) 140/68 Pulse Ox 93 89 O2 Delivery Nasal Cannula Nasal Cannula O2 Flow Rate 2.0 2.0 11/14/16 11/14/16 11/14/16 11/14/16 07:46 08:42 10:20 11:08 Temp 98.5 98.5 Pulse 100 95 Resp 22 18 23 B/P (MAP) 165/89 (114) 165/76 (105) Pulse Ox 96 96 95 95 O2 Delivery Simple Mask Venturi Mask Simple Mask Venturi Mask O2 Flow Rate 2.0 9.0 12.0 12.0 Intake and Output 11/13/16 11/13/16 11/14/16 15:00 23:00 07:00 Intake Total 0 ml 0 ml Output Total 77 ml 450 ml 350 ml Balance -77 ml -450 ml -[address] MD Nov 14, 2016 11:24
--- NOTE | 2016-11-14 11:43 | PDOC ---
Objective: Objective: Reviewed other notes. Vital Signs: Vital Signs Date Time Temp Pulse Resp B/P (MAP) Pulse Ox O2 Delivery O2 Flow Rate FiO2 11/14/16 11:08 95 Venturi Mask 12.0 11/14/16 10:20 98.5 95 23 165/76 (105) 98.5 Labs: Laboratory Tests Test 11/13/16 16:40 11/13/16 20:41 11/14/16 07:50 11/14/16 10:23 Glucose (Fingerstick) 264 mg/dL 248 mg/dL 371 mg/dL 406 mg/dL PE: GEN: NAD LUNGS: breathing mask HEART: tachycardic ABD: soft NEURO/PSYCH: eyes closed A/P: Bloody stool, dysphagia -EGD and colon w/ Dr. Ramírez last year: gastritis, duodenitis, rectal polyp; family declined repeat endoscopy A Fib, cardiomyopathy, encephalopathy, RAMY -- Family has decided on Hospice, await DC. BRAULIO PEREZ Nov 14, 2016 11:43
[2016-11-14 12:00] VITALS: BP 165/76
== END 2016-11-14 14:30 | disposition hospice, inpatient (51) | DRG 377 ==
LOC: ER 10:55 → 6 SOUTH 14:18 → 1 WEST ICU 11-11 01:43 → 2 SOUTH 11-13 14:49
PROVIDERS: ADMIT Internal Medicine; ATTEND Internal Medicine
PROC: 30233N1 Transfusion of Nonautologous Red Blood Cells into Peripheral Vein, Percutaneous Approach (ICD-10-PCS; 2016-11-10)
PROC: 02HV33Z Insertion of Infusion Device into Superior Vena Cava, Percutaneous Approach (ICD-10-PCS; principal; 2016-11-13)
DX: K62.5 Hemorrhage of anus and rectum (principal); G93.41 Metabolic encephalopathy; N17.9 Acute kidney failure, unspecified; I42.9 Cardiomyopathy, unspecified; I50.42 Chronic combined systolic (congestive) and diastolic (congestive) heart failure; N18.4 Chronic kidney disease, stage 4 (severe); N39.0 Urinary tract infection, site not specified; I13.0 Hypertensive heart and chronic kidney disease with heart failure and stage 1 through stage 4 chronic kidney disease, or unspecified chronic kidney disease; E78.00 Pure hypercholesterolemia, unspecified; E66.9 Obesity, unspecified; E11.65 Type 2 diabetes mellitus with hyperglycemia; E78.5 Hyperlipidemia, unspecified; I25.10 Atherosclerotic heart disease of native coronary artery without angina pectoris; I27.2 Other secondary pulmonary hypertension; E11.649 Type 2 diabetes mellitus with hypoglycemia without coma; J44.9 Chronic obstructive pulmonary disease, unspecified; K21.9 Gastro-esophageal reflux disease without esophagitis; I07.1 Rheumatic tricuspid insufficiency; Z66 Do not resuscitate; R13.10 Dysphagia, unspecified; M06.9 Rheumatoid arthritis, unspecified; E11.22 Type 2 diabetes mellitus with diabetic chronic kidney disease; K62.1 Rectal polyp; F03.90 Unspecified dementia, unspecified severity, without behavioral disturbance, psychotic disturbance, mood disturbance, and anxiety; D50.9 Iron deficiency anemia, unspecified; F32.9 Major depressive disorder, single episode, unspecified; M19.90 Unspecified osteoarthritis, unspecified site; I48.2 Chronic atrial fibrillation; Z90.49 Acquired absence of other specified parts of digestive tract; Z90.710 Acquired absence of both cervix and uterus; I25.2 Old myocardial infarction; Z95.1 Presence of aortocoronary bypass graft; Z79.82 Long term (current) use of aspirin; Z86.73 Personal history of transient ischemic attack (TIA), and cerebral infarction without residual deficits; Z87.440 Personal history of urinary (tract) infections; Z88.0 Allergy status to penicillin; Z88.8 Allergy status to other drugs, medicaments and biological substances; Z68.33 Body mass index [BMI] 33.0-33.9, adult; Z51.5 Encounter for palliative care
CPT/HCPCS: 36415; 70450; 70551; 71010; 73630; 74176; 78278; 80048; 80053; 80061; 81001; 82040; 82274; 82550; 82607; 82728; 82746; 82962; 83036; 83540; 83550; 83605; 83735; 84100; 84443; 85014; 85018; 85027; 85610; 85730; 86850; 86900; 86901; 86902; 86922; 87086; 87641; 93005; 93306; 94760; 95816; 96374; A6539; A9560; C9113; J0610; J1815; J1953; J2060; J3010; J3490; J7030; P9016; 92526; 92610; 99285-25